=== PATIENT | female | born 1995 | race Caucasian/White ===

== ENCOUNTER 2017-01-06 19:16 | Emergency (ER) | payer OTHER ==
[~2017-01-06] VITALS: Ht 152.4 cm; Wt 99.8 kg
[~2017-01-06 19:16] MED LIST: ALBU8.5H3 IH; ALBU8.5H6 IH; ATOR40TA PO; CYCL10TA2 PO; DICY20TA30 PO; DOCU-27 PO; HYDR-971 PO; METR500T PO; NITR100C62 PO; ONDA4TAB7 PO; ONDA8TAB12 PO; POLY17PO5 PO; PRED20TA PO; PREN1TAB58 PO; TOPI100T39 PO
--- NOTE | 2017-01-06 19:20 | ED.ADGEN ---
Past History Past Medical History: Bipolar, Depression Past Surgical History: Appendectomy, Tonsillectomy Smoking: Cigarettes Alcohol Use: None Drug Use: None Adult General Chief Complaint Chief Complaint " .. I am .. 28 weeks.. and I got ear aches again.. I got treated once of otitis at [facility] last month.. but it has come back...I know I should stop smoking because that would help...." HPI HPI Patient is a 21 year old female who presents with above hx and complaints of bilateral ear pain. Patient has bilateral fluid in each ear. Some erythema in right ear. No history of travel. No history of contacts. Patient does smoke. Patient follows with primary care. No history of immunosuppression. Review of Systems Review of Systems Constitutional: Complaints of fever or chills [] Eyes: Denies change in visual acuity, redness, or eye pain [] HENT: Complaints of nasal congestion, ear pain and sore throat [] Respiratory: Denies cough or shortness of breath [] Cardiovascular: No additional information not addressed in HPI [] GI: Denies abdominal pain, nausea, vomiting, bloody stools or diarrhea [] : Denies dysuria or hematuria [] Musculoskeletal: Denies back pain or joint pain [] Integument: Denies rash or skin lesions [] Neurologic: Denies headache, focal weakness or sensory changes [] Endocrine: Denies polyuria or polydipsia [] Family History Family History Noncontributory Current Medications Current Medications See nursing for home meds Current Medications Medications (Trade) Dose Ordered Sig/Gama Start Time Stop Time Status Last Admin Dose Admin Azithromycin (Zithromax) 500 mg 1X ONCE 01/06/17 20:15 01/06/17 20:16 DC 01/06/17 20:11 500 MG Allergies Allergies Allergies Coded Allergies Type Severity Reaction Last Updated Verified Penicillins Allergy Intermediate 01/08/15 No Sulfa (Sulfonamide Antibiotics) Allergy Intermediate 01/08/15 No aripiprazole Allergy Intermediate 01/08/15 No duloxetine Allergy Intermediate 01/08/15 No fluoxetine Allergy Intermediate 01/08/15 No latex Allergy Intermediate 01/08/15 No fentanyl Allergy Mild HIVES 03/12/14 No Physical Exam Physical Exam Constitutional: Mild distress, non-toxic appearance. [] HENT: Normocephalic, atraumatic, bilateral external ears normal, oropharynx moist, mild posterior pharyngeal erythema no oral exudates, nose swollen turbinates and rhinorrhea. Bilateral TM fluid and right injection of TM. Eyes: PERRLA, EOMI, conjunctiva normal, no discharge. [] Glasses Neck: Normal range of motion, no tenderness, supple, no stridor. [] Cardiovascular:Heart rate regular rhythm, no murmur [] Lungs & Thorax: Bilateral breath sounds equal at apexes with scattered wheezes auscultation [] Abdomen: Bowel sounds normal, soft, no tenderness, no masses, no pulsatile masses. Gravid. movements. Skin: Warm, dry, no erythema, no rash. [] Back: No tenderness, no CVA tenderness. [] Extremities: No tenderness, no cyanosis, no clubbing, ROM intact, no edema. [] Neurologic: Alert and oriented X 3, normal motor function, normal sensory function, no focal deficits noted. [] DTRs are +2 Psychologic: Affect anxious, judgement normal, mood normal. [] Current Patient Data Vital Signs Vital Signs Date Time Temp Pulse Resp B/P Pulse Ox O2 Delivery O2 Flow Rate FiO2 01/06/17 20:17 97.9 01/06/17 19:30 114 20 98 Room Air EKG EKG [] Radiology/Procedures Radiology/Procedures [] Course & Med Decision Making Course & Med Decision Making Pertinent Labs and Imaging studies reviewed. (See chart for details). Stop smoking. Continue vitamins. Take his Zithromax 250 daily for 5 days. Benadryl 25 mg up to 4 times a day may be helpful for congestion and fluid retention behind TMs. Follow-up primary care. Return if any concerns. May take Tylenol for pain. [] Final Impression Final Impression 1. Otitis bilateral 2. Gravid approximately 28 weeks 3. Tobacco use [] Problems: Dragon Disclaimer Dragon Disclaimer This electronic medical record was generated, in whole or in part, using a voice recognition dictation system. XOCHITL STREETER MD Jan 06, 2017 19:20
[2017-01-06 19:30] VITALS: BP 115/66
[2017-01-06] MEDS ORDERED: AZIT250T PO (20:10)
[2017-01-06] MEDS ORDERED: AZITHROMYCIN 250 MG TABLET. PO ONE (20:15)
== END 2017-01-06 20:17 | disposition home or self-care (01) ==
LOC: ER 19:20
DX: O26.893 Other specified pregnancy related conditions, third trimester (principal); H66.93 Otitis media, unspecified, bilateral; O99.333 Smoking (tobacco) complicating pregnancy, third trimester; Z3A.28 28 weeks gestation of pregnancy; Z88.0 Allergy status to penicillin; Z88.2 Allergy status to sulfonamides; Z88.8 Allergy status to other drugs, medicaments and biological substances; Z91.040 Latex allergy status
CPT/HCPCS: 99283; J0456

== ENCOUNTER 2017-01-13 20:24 | Emergency (ER) | payer OTHER ==
[~2017-01-13] VITALS: Ht 152.4 cm; Wt 100.7 kg
[~2017-01-13 20:24] MED LIST changes: +AZIT250T PO
[2017-01-13] MEDS ORDERED: IV NORMAL SALINE 1,000ML 1,000 ML IV SCH (21:00)
[2017-01-13] MEDS ORDERED: ACETAMINOPHEN 500 MG TABLET PO ONE (21:08)
[2017-01-13 21:09] LABS: BASO % 0 % (0-3); EOS # 0.1 x10^3/uL (0.0-0.7); EOS % 1 % (0-3); HEMATOCRIT 30.8 % (36.0-47.0); HEMOGLOBIN 10.4 g/dL (12.0-15.5); LYMPH # 2.5 x10^3/uL (1.0-4.8); LYMPH % 18 % (24-48); MEAN CORPUSCULAR HEMOGLOBIN 28 pg (25-35); MEAN CORPUSCULAR HGB CONC 34 g/dL (31-37); MEAN CORPUSCULAR VOLUME 83 fL (79-100); MONO # 0.7 x10^3/uL (0.0-1.1); MONO % 5 % (0-9); NEUT # 10.9 x10^3uL (1.8-7.7); NEUT % 77 % (31-73); PLATELET COUNT 198 x10^3/uL (140-400); RED BLOOD COUNT 3.71 x10^6/uL (3.50-5.40); RED CELL DISTRIBUTION WIDTH 14.8 % (11.5-14.5); WHITE BLOOD COUNT 14.2 x10^3/uL (4.0-11.0)
[2017-01-13 21:20] LABS: ALBUMIN 2.9 g/dL (3.4-5.0); ALK PHOS 72 U/L (46-116); ALT (SGPT) 16 U/L (14-59); ANION GAP 9 (6-14); AST (SGOT) 11 U/L (15-37); BLOOD UREA NITROGEN 10 mg/dL (7-20); CALCIUM 8.9 mg/dL (8.5-10.1); CARBON DIOXIDE 25 mmol/L (21-32); CHLORIDE 106 mmol/L (98-107); CREATININE 0.7 mg/dL (0.6-1.0); GFR 105.6; GLUCOSE 144 mg/dL (70-99); POTASSIUM 3.5 mmol/L (3.5-5.1); SODIUM 140 mmol/L (136-145); TOTAL BILIRUBIN 0.1 mg/dL (0.2-1.0); TOTAL PROTEIN 6.7 g/dL (6.4-8.2)
[2017-01-13 21:21] LABS: DIRECT BILIRUBIN < 0.1 mg/dL (0.0-0.2)
[2017-01-13 22:46] LABS: AMPHETAMINE/METHAMPHETAMINE NEG (NEG); BARBITURATES NEG (NEG); BENZODIAZEPINES NEG (NEG); CANNABINOIDS NEG (NEG); COCAINE NEG (NEG); METHADONE NEG (NEG); OPIATES NEG (NEG); PHENCYCLIDINE NEG (NEG)
[2017-01-13 22:48] LABS: BILIRUBIN,URINE NEG (NEG); CLARITY,URINE HAZY; COLOR,URINE YELLOW; GLUCOSE,URINE NEG (NEG); UROBILINOGEN,URINE 0.2 mg/dL (0.2 mg/dL)
[2017-01-13 22:49] LABS: BACTERIA,URINE FEW /HPF (0-FEW); NITRITE,URINE NEG (NEG); SQUAMOUS EPITHELIAL CELL,UR MOD /LPF
--- NOTE | 2017-01-13 23:26 | PHYS DOC ---
General Chief Complaint: HEADACHE Stated Complaint: HEADACHE Time Seen by MD: 20:26 Source: patient, old records Exam Limitations: no limitations Problems: History of Present Illness Initial Comments Pt is 29wks gestation 21/F to ED c/o JAMIL. Pt states she's had a migraine for days, says it is global 10/10 throbbing. No aura/scotoma/n/v/focal neurodef, states OTC meds no help. Pt follows with health dept/ for OB, has not called her doctor about this tonight. Pt taking vitamins, continues to smoke cigarettes. Pt with 12 ED visits last year, 4 this year at [facility]. Pt reportedly also goes to and [facility]. Pt last here 6 days ago for ear pain. Timing/Duration: other (2 days, constant) Severity: severe Modifying Factors: improves with other Associated Symptoms: headaches Allergies: Coded Allergies: Penicillins (Unverified Allergy, Intermediate, 01/08/15) Sulfa (Sulfonamide Antibiotics) (Unverified Allergy, Intermediate, 01/08/15) aripiprazole (Unverified Allergy, Intermediate, 01/08/15) duloxetine (Unverified Allergy, Intermediate, 01/08/15) fluoxetine (Unverified Allergy, Intermediate, 01/08/15) latex (Unverified Allergy, Intermediate, 01/08/15) fentanyl (Unverified Allergy, Mild, HIVES, 03/12/14) Past Medical History Medical History: high cholesterol, other Surgical History: appendectomy, tonsillectomy Psychosocial History: bipolar, depression Family History Significant Family History: heart disease, hypertension, other Social History Smoker: cigarettes Alcohol: none Drugs: none Review of Systems Constitutional: denies chills, denies fever, malaise EENTM: denies eye pain, denies ear pain, denies nose pain, denies throat pain Respiratory: denies cough, denies shortness of breath Cardiovascular: denies chest pain, denies palpitations, denies syncope Gastrointestinal: denies diarrhea, denies nausea, denies vomiting Genitourinary: denies dysuria, denies frequency, denies hematuria Musculoskeletal: denies back pain, denies joint swelling, denies neck pain Psychiatric/Neurological: headachedenies numbness, denies paresthesia, denies weakness Hematologic/Lymphatic: denies blood clots, denies easy bleeding, denies easy bruising Physical Exam General Appearance: no apparent distress, obese Eyes: bilateral eye EOMI, bilateral eye PERRL, bilateral eye normal inspection Ear, Nose, Throat: hearing grossly normal, normal ENT inspection, normal pharynx Neck: non-tender, supple Respiratory: normal breath sounds, no respiratory distress Cardiovascular: normal peripheral pulses, regular rate, rhythm Gastrointestinal: normal bowel sounds, non tender, soft Back: no CVA tenderness, no vertebral tenderness Extremities: non-tender, normal inspection 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 I discussed findings and need to minimize harm. Tylenol only recommended. Pt insists on stronger pain meds, I advised her I would not give stronger meds without her OB direction. Pt calls RN to room, states she talked to her doctor and stronger meds will be approved if we contact them. RN called number given by pt, the RN stated that pt had been told nothing stronger than tylenol recommended or would be approved by her OB. Departure Time of Disposition: 23:23 Disposition: 01 HOME, SELF-CARE Diagnosis: Headache, tobaccoism, Patient Instructions: Medicines During , Smoking Cessation, Tips For Success Additional Instructions: Rest no strenuous activity. Aggressive hydration with gatorade, water. Continue vitamins. Stop smoking to alleviate headache and prevent harm to your baby. See handout for medications during . Follow up with your OB this week. Return to ED with new or changing symptoms. SAM JEAN DO Jan 13, 2017 23:26
[2017-01-13 23:31] VITALS: BP 139/80
== END 2017-01-13 23:31 | disposition home or self-care (01) ==
LOC: ER 20:24
DX: O26.893 Other specified pregnancy related conditions, third trimester (principal); R51 Headache; E78.00 Pure hypercholesterolemia, unspecified; I11.9 Hypertensive heart disease without heart failure; O99.333 Smoking (tobacco) complicating pregnancy, third trimester; Z3A.00 Weeks of gestation of pregnancy not specified; Z88.0 Allergy status to penicillin; Z88.2 Allergy status to sulfonamides; Z88.8 Allergy status to other drugs, medicaments and biological substances; Z91.040 Latex allergy status
CPT/HCPCS: 36415; 80048; 80076; 80305; 80320; 81001; 85027; 96360; 96361; G0480; G0481; 99285-25; J7030

== ENCOUNTER 2017-01-25 16:45 | Emergency (ER) | payer OTHER ==
[~2017-01-25] VITALS: Ht 152.4 cm; Wt 88.8 kg
--- NOTE | 2017-01-25 17:47 | PHYS DOC ---
General Chief Complaint: HIP PAIN Stated Complaint: FLANK PAIN Time Seen by MD: 17:43 Source: patient Exam Limitations: no limitations Problems: History of Present Illness Initial Comments Pt is 21/F to ED c/o right thigh discomfort/tightness. Pt 31 weeks gestation follows with OB and reportedly taking vitamins. She reports left posterior upper leg pain/tightness "feels like a manolo horse. " Pt says the discomfort is resultant from her job which requires standing, she tried to call off work today but employer reportedly refused excused absence without Dr note. No other injury, no leg weakness/numbness/tingling/ radiating symptoms no focal point tenderness. Pt walks with slight limp, OTC meds not helping, pt still smokes cigarettes. No JAMIL/cp/sob/focal neurodef pt is . FHT 143 bpm, pt denies vaginal/flank symptoms. Onset: this morning Severity: moderate Pain/Injury Location: left thigh Method of Injury: unknown Modifying Factors: worse with jarring, worse with movement, improves with rest Allergies: Coded Allergies: Penicillins (Unverified Allergy, Intermediate, 01/08/15) Sulfa (Sulfonamide Antibiotics) (Unverified Allergy, Intermediate, 01/08/15) aripiprazole (Unverified Allergy, Intermediate, 01/08/15) duloxetine (Unverified Allergy, Intermediate, 01/08/15) fluoxetine (Unverified Allergy, Intermediate, 01/08/15) latex (Unverified Allergy, Intermediate, 01/08/15) fentanyl (Unverified Allergy, Mild, HIVES, 03/12/14) Past Medical History Medical History: other (asthma, bipolar, depression) Surgical History: appendectomy, tonsillectomy LMP (Females 10-50): Family History Significant Family History: heart disease, hypertension, other Social History Smoker: cigarettes Alcohol: none Drugs: none Review of Systems Constitutional: denies chills, denies fever, denies malaise Respiratory: denies cough, denies shortness of breath Cardiovascular: denies chest pain, denies palpitations Gastrointestinal: denies abdominal pain, denies nausea, denies vomiting Genitourinary: denies dysuria, denies frequency, denies hematuria Musculoskeletal: see HPI Skin: denies change in color, denies lumps, denies rash Psychiatric/Neurological: denies headache, denies numbness, denies paresthesia , denies weakness Physical Exam General Appearance: no apparent distress HEENT: normal ENT inspection Neck: non-tender, supple Cardiovascular/Respiratory: normal peripheral pulses, no respiratory distress Back: no CVA tenderness, no vertebral tenderness Hips: bilateral hip non-tender, bilateral hip normal inspection, bilateral hip normal range of motion, bilateral hip no evidence of injury Legs: left leg non-tender, left leg normal inspection, bilateral leg normal range of motion, bilateral leg no evidence of injury, right leg other (right IT band/hamstring TTP, hamstring hypertonicity (mild) noted no erythema/sub q mass/ swelling no skin changes or other traumatic finding) Neurologic/Tendon: normal sensation, normal motor functions, normal tendon functions, responds to pain, no evidence tendon injury Psychiatric: alert, oriented x 3 Skin: normal color, warm/dry Orders, Labs, Meds thigh circumferences measured b/l at site of maximal tenderness left thigh, no asymmetry see nn for measurements. I discussed DVT and lack of need for US at this time. Pt is fine with that, she persistently requests work excuse which was given. Advised to d/c smoking for baby's health. Departure Time of Disposition: 17:45 Disposition: 01 HOME, SELF-CARE Diagnosis: muscle strain, incidental Condition: GOOD Patient Instructions: Hamstring Strain with Rehab-SportsMed, Medicines During Additional Instructions: Activity as tolerated. Continue current medications. Aggressive hydration with gatorade, water. Eat one banana twice daily until doctor follow up. Follow up with your doctor next week. Return to ED with new or changing symptoms. SAM JEAN DO Jan 25, 2017 17:47
[2017-01-25 18:03] VITALS: BP 127/60
== END 2017-01-25 17:50 | disposition home or self-care (01) ==
LOC: ER 16:45
DX: O26.893 Other specified pregnancy related conditions, third trimester (principal); S76.911A Strain of unspecified muscles, fascia and tendons at thigh level, right thigh, initial encounter; O99.333 Smoking (tobacco) complicating pregnancy, third trimester; J45.909 Unspecified asthma, uncomplicated; F17.210 Nicotine dependence, cigarettes, uncomplicated; Z3A.31 31 weeks gestation of pregnancy; Z88.0 Allergy status to penicillin; Z88.2 Allergy status to sulfonamides; Z91.040 Latex allergy status; Z88.8 Allergy status to other drugs, medicaments and biological substances; X58.XXXA Exposure to other specified factors, initial encounter; Y93.89 Activity, other specified; Y99.8 Other external cause status; Y92.89 Other specified places as the place of occurrence of the external cause
CPT/HCPCS: 99281

== ENCOUNTER 2017-02-06 23:42 | Emergency (ER) | payer OTHER ==
[~2017-02-06] VITALS: Ht 152.4 cm; Wt 98.9 kg
[2017-02-06 23:42] VITALS: BP 129/70
--- NOTE | 2017-02-07 00:03 | PHYS DOC ---
General Chief Complaint: TEST Stated Complaint: NO MOVEMENT FROM BABY, 32 WEEKS Time Seen by MD: 23:45 Source: patient, old records Exam Limitations: no limitations Problems: History of Present Illness Initial Comments Pt is 32 weeks gestation 21/F well known to ED for check. Pt states she hasn't felt baby move today, she called [facility] where she plans to deliver and they advised pt to come to their facility to check baby status. Pt denies abdominal/back pain, no vaginal bleeding/discharge. "I didn't want to drive that far so we just came here." Pt denies complaints other than her concern for baby's welfare. Timing/Duration: 4-6 hours Severity: severe Modifying Factors: improves with other Associated Symptoms: other Allergies: Coded Allergies: Penicillins (Unverified Allergy, Intermediate, 01/08/15) Sulfa (Sulfonamide Antibiotics) (Unverified Allergy, Intermediate, 01/08/15) aripiprazole (Unverified Allergy, Intermediate, 01/08/15) duloxetine (Unverified Allergy, Intermediate, 01/08/15) fluoxetine (Unverified Allergy, Intermediate, 01/08/15) latex (Unverified Allergy, Intermediate, 01/08/15) fentanyl (Unverified Allergy, Mild, HIVES, 03/12/14) Past Medical History Medical History: high cholesterol, other Surgical History: appendectomy, tonsillectomy Family History Significant Family History: heart disease, hypertension, other Review of Systems Constitutional: denies chills, denies fever Respiratory: denies cough, denies shortness of breath Cardiovascular: denies chest pain, denies palpitations Gastrointestinal: denies abdominal pain, denies constipation Genitourinary: denies discharge, denies hematuria Musculoskeletal: denies joint swelling, denies neck pain Psychiatric/Neurological: denies headache, denies seizure Physical Exam General Appearance: WD/WN, no apparent distress Ear, Nose, Throat: normal ENT inspection Respiratory: normal breath sounds, no respiratory distress Cardiovascular: normal peripheral pulses, regular rate, rhythm Gastrointestinal: normal bowel sounds, soft (gravid c/w dates NTTP) Back: no CVA tenderness, no vertebral tenderness Extremities: non-tender, no pedal edema 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 Reassurance offered, pt states she is ready for d/c. Pt has f/u OB appt at next Saturday, states she will be induced one week prior to due date. Departure Time of Disposition: 00:01 Disposition: 01 HOME, SELF-CARE Diagnosis: Screening Exam, Condition: GOOD Patient Instructions: - Nain Sandoval Contractions, - Third Trimester, [id number] Additional Instructions: Continue current meds and precautions. Follow up with your [facility] at Saturday as scheduled. Return to ED with new or changing symptoms. SAM JEAN DO February 07, 2017 00:03
== END 2017-02-07 00:06 | disposition home or self-care (01) ==
LOC: ER 23:42
DX: Z34.93 Encounter for supervision of normal pregnancy, unspecified, third trimester (principal); E78.00 Pure hypercholesterolemia, unspecified; Z3A.32 32 weeks gestation of pregnancy; Z88.0 Allergy status to penicillin; Z88.2 Allergy status to sulfonamides; Z88.8 Allergy status to other drugs, medicaments and biological substances; Z91.040 Latex allergy status
CPT/HCPCS: 82947; 99283

== ENCOUNTER 2017-02-22 14:03 | Emergency (ER) | payer OTHER ==
[~2017-02-22] VITALS: Ht 152.4 cm; Wt 98.9 kg
[~2017-02-22 14:03] MED LIST changes: -ALBU8.5H3 IH; +ALBU8.5H8 IH; +CYCL-331 PO; -CYCL10TA2 PO; +DOCU-109 PO; -DOCU-27 PO; -TOPI100T39 PO; +TOPI100T42 PO
[2017-02-22 14:17] VITALS: BP 145/76
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
== END 2017-02-22 14:41 | disposition short-term general hospital (02) ==
LOC: ER 14:10
DX: O62.8 Other abnormalities of forces of labor (principal); O60.03 Preterm labor without delivery, third trimester; O99.333 Smoking (tobacco) complicating pregnancy, third trimester; E11.9 Type 2 diabetes mellitus without complications; Z3A.36 36 weeks gestation of pregnancy; Z88.0 Allergy status to penicillin; Z88.2 Allergy status to sulfonamides; Z91.040 Latex allergy status; Z88.8 Allergy status to other drugs, medicaments and biological substances
CPT/HCPCS: 99285

== ENCOUNTER 2017-03-19 22:45 | Emergency (ER) | payer OTHER ==
--- NOTE | 2017-03-19 23:07 | PHYS DOC ---
General Chief Complaint: POST-OP PROBLEM Stated Complaint: POST OP COMPLICATION Time Seen by MD: 22:53 Source: patient Exam Limitations: no limitations Problems: History of Present Illness Initial Comments Patient is a 22-year-old female 5 days section with a healthy baby female at home. Patient states that she's been recovering well from her procedure but earlier tonight her incision became uncomfortable and felt like it was burning. The patient assumed that it had opened up and was bleeding and without looking at it she came in for evaluation. In the ED the wound appears to be healing well there is no bleeding it has not dehisced. The patient has no other complaints. Timing/Duration: other Severity: mild Modifying Factors: worse with movement Associated Symptoms: other Allergies: Coded Allergies: Penicillins (Unverified Allergy, Intermediate, 01/08/15) Sulfa (Sulfonamide Antibiotics) (Unverified Allergy, Intermediate, 01/08/15) aripiprazole (Unverified Allergy, Intermediate, 01/08/15) duloxetine (Unverified Allergy, Intermediate, 01/08/15) fluoxetine (Unverified Allergy, Intermediate, 01/08/15) latex (Unverified Allergy, Intermediate, 01/08/15) fentanyl (Unverified Allergy, Mild, HIVES, 03/12/14) Past Medical History Medical History: high cholesterol, other (anxiety, depression) Surgical History: appendectomy, tonsillectomy ( section) Psychosocial History: anxiety, depression Family History Significant Family History: heart disease, hypertension, other Social History Smoker: cigarettes Alcohol: none Drugs: none Review of Systems Constitutional: denies chills, denies diaphoresis, denies fever, denies malaise Respiratory: denies cough, denies shortness of breath Cardiovascular: denies chest pain, denies palpitations Gastrointestinal: see HPI, denies constipation, denies diarrhea, denies nausea , denies vomiting Genitourinary: denies dysuria, denies frequency, denies hematuria Musculoskeletal: see HPI, denies back pain, denies neck pain Skin: see HPI Psychiatric/Neurological: denies headache, denies numbness, denies paresthesia Physical Exam General Appearance: no apparent distress, obese Ear, Nose, Throat: hearing grossly normal, normal ENT inspection Neck: non-tender, supple Respiratory: normal breath sounds, no respiratory distress Cardiovascular: normal peripheral pulses, regular rate, rhythm Gastrointestinal: soft (wound is covered with sterile dressing when removed the incision is healing well there is no erythema or discharge or bleeding. 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 Departure Time of Disposition: 23:06 Disposition: 01 HOME, SELF-CARE Diagnosis: wound check Condition: GOOD Patient Instructions: Delivery, Care After Additional Instructions: Continue postop medications and instructions given to you by your chargeback specialist. Follow-up with your chargeback specialist as scheduled. Return to the ED with new or changing symptoms. SAM JEAN DO Mar 19, 2017 23:07
[2017-03-20 00:15] VITALS: BP 121/71
== END 2017-03-19 23:11 | disposition home or self-care (01) ==
LOC: ER 22:45
DX: Z00.00 Encounter for general adult medical examination without abnormal findings (principal); O90.89 Other complications of the puerperium, not elsewhere classified; E78.00 Pure hypercholesterolemia, unspecified; F41.9 Anxiety disorder, unspecified; I11.9 Hypertensive heart disease without heart failure; F17.210 Nicotine dependence, cigarettes, uncomplicated; Z98.890 Other specified postprocedural states; Z88.0 Allergy status to penicillin; Z88.2 Allergy status to sulfonamides; Z88.8 Allergy status to other drugs, medicaments and biological substances; Z91.040 Latex allergy status
CPT/HCPCS: 99281

== ENCOUNTER 2017-03-31 20:51 | Emergency (ER) | payer OTHER ==
[~2017-03-31] VITALS: Ht 152.4 cm; Wt 99.1 kg
[2017-03-31 21:15] VITALS: BP 108/60
[2017-03-31] MEDS ORDERED: HYDR-2758 PO (21:29)
[2017-03-31] MEDS ORDERED: DIAZ5TAB PO (21:29)
[2017-03-31] MEDS ORDERED: NAPR500T PO (21:29)
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
[2017-03-31] MEDS ORDERED: HYDROcodone/APAP 5/325MG 1 TAB TABLET PO ONE (22:00)
== END 2017-03-31 21:58 | disposition home or self-care (01) ==
LOC: ER 20:51
DX: Z48.815 Encounter for surgical aftercare following surgery on the digestive system (principal); O9A.23 Injury, poisoning and certain other consequences of external causes complicating the puerperium; S16.1XXA Strain of muscle, fascia and tendon at neck level, initial encounter; E78.00 Pure hypercholesterolemia, unspecified; F17.210 Nicotine dependence, cigarettes, uncomplicated; Z88.0 Allergy status to penicillin; Z88.2 Allergy status to sulfonamides; Z88.8 Allergy status to other drugs, medicaments and biological substances; Z88.4 Allergy status to anesthetic agent; Z91.040 Latex allergy status; V49.9XXA Car occupant (driver) (passenger) injured in unspecified traffic accident, initial encounter; Y93.89 Activity, other specified; Y99.8 Other external cause status; Y92.410 Unspecified street and highway as the place of occurrence of the external cause
CPT/HCPCS: 99283

== ENCOUNTER 2017-05-22 01:17 | Emergency (ER) | payer OTHER ==
[~2017-05-22 01:17] MED LIST changes: +DIAZ5TAB PO; +HYDR-2758 PO; +NAPR500T PO
[2017-05-22] MEDS ORDERED: LIDO:MAALOX 1:1 20 ML SINGLE DOSE PO ONE (02:00)
[2017-05-22 02:45] VITALS: BP 143/79
--- NOTE | 2017-05-22 03:17 | ED.ADGEN ---
Past History Past Medical History: Anxiety, Diabetes Past Surgical History: Smoking: Cigarettes Alcohol Use: None Drug Use: None Adult General HPI HPI Patient is a 22-year-old woman, history of anxiety, bipolar disorder, gestational diabetes, who presents to the emergency department with multiple complaints. Patient states that for the past several weeks she is sometimes experiences episodes of "disorientation", she states "I know who I am and where I am, I just don't feel right". No headache or vision changes. She states that she is feeling this way today, and is concerned may be due to her blood sugars, she states she did have gestational diabetes, and has not yet followed up for reevaluation after delivering her daughter, and is concerned the symptoms may be due to elevated blood glucose. She states that she was previously taking Klonopin, but ran out about a month ago, and has been unable to refill her prescription as her primary care provider has moved. She states that she has been working with her nurse outreach case manager to get in to the guidance center for assistance. She denies any suicidal or homicidal ideation, any self injures behaviors or thoughts, states that she just does feel anxious, and is worried about a number of things, no new changes or particular stressors that brought her to the ED tonight. She states she has been sexually active, has received the Depo-Provera injection. She states that "my father is a cardiac patient", She states that she also is experiencing a "burning" sensation in her chest, located in the mid anterior region without radiation, states it began earlier today, no chest pain or pressure, denies any shortness of breath, any nausea or vomiting, any weakness, numbness, tingling, injuries, travel, swelling of the extremities, history of DVT or PE. She is not taking any medication for these symptoms prior to coming to the ED. Oxygen saturation is 99-100% on room air, respiratory rate is 20 and unlabored, heart rate is 94 bpm, blood pressure is 160/90, patient does appear anxious. Review of Systems Review of Systems Constitutional: Denies fever or chills [] Eyes: Denies change in visual acuity, redness, or eye pain [] HENT: Denies nasal congestion or sore throat [] Respiratory: Denies cough or shortness of breath, complaining of burning sensation in chest. Cardiovascular: No additional information not addressed in HPI [] GI: Denies abdominal pain, nausea, vomiting, bloody stools or diarrhea [] : Denies dysuria or hematuria [] Musculoskeletal: Denies back pain or joint pain [] Integument: Denies rash or skin lesions [] Neurologic: Denies headache, focal weakness or sensory changes [] Endocrine: Denies polyuria or polydipsia [] Anxiety. Current Medications Current Medications Current Medications Medications (Trade) Dose Ordered Sig/Gama Start Time Stop Time Status Last Admin Dose Admin Multi-Ingredient Mouthwash/Gargle (Gi Cocktail) 20 ml 1X ONCE 05/22/17 02:00 05/22/17 02:04 DC 05/22/17 01:57 20 ML Allergies Allergies Allergies Coded Allergies Type Severity Reaction Last Updated Verified Penicillins Allergy Intermediate 01/08/15 No Sulfa (Sulfonamide Antibiotics) Allergy Intermediate 01/08/15 No aripiprazole Allergy Intermediate 01/08/15 No duloxetine Allergy Intermediate 01/08/15 No fluoxetine Allergy Intermediate 01/08/15 No latex Allergy Intermediate 01/08/15 No fentanyl Allergy Mild HIVES 03/12/14 No Physical Exam Physical Exam Constitutional: Well developed, well nourished, no acute distress, non-toxic appearance. [] HENT: Normocephalic, atraumatic, bilateral external ears normal, oropharynx moist, no oral exudates, nose normal. [] Eyes: PERRLA, EOMI, conjunctiva normal, no discharge. [] Neck: Normal range of motion, no tenderness, supple, no stridor. [] Cardiovascular:Heart rate regular rhythm, no murmur , S1, S2, rubs or gallops. [ ] Lungs & Thorax: Bilateral breath sounds clear to auscultation , no wheezing, rhonchi or rales. No chest wall crepitus, patient with mild tenderness across the left anterior chest. No lesions or abnormalities identified. [] Abdomen: Bowel sounds normal, soft, no tenderness, no rebound, rigidity, no guarding, no masses, no pulsatile masses. [] Skin: Warm, dry, no erythema, no rash. [] Back: No tenderness, no CVA tenderness. [] Extremities: No tenderness, no cyanosis, no clubbing, ROM intact, no edema. Negative Ivis's sign. [] Neurologic: Alert and oriented X 3, normal motor function, normal sensory function, no focal deficits noted. [] Psychologic: Affect normal, judgement normal, mood normal. [] Current Patient Data Vital Signs Vital Signs Date Time Temp Pulse Resp B/P (MAP) Pulse Ox O2 Delivery O2 Flow Rate FiO2 05/22/17 02:45 94 20 143/79 (100) 97 Room Air 05/22/17 01:30 98.4 Lab Results Laboratory Tests Test 05/22/17 02:19 POC Urine HCG, Qualitative hcg negative (Negative) EKG EKG EC: Sinus rhythm, heart rate 94 beats/minute, upright axis, QTC of 460, FL 156, QRS of 92, no ST elevations or depressions, patient with flattening noted in the anterior leads, no other abnormalities identified. No prior for comparison. As interpreted by me. Radiology/Procedures Radiology/Procedures Not indicated. [] Course & Med Decision Making Course & Med Decision Making Pertinent Labs and Imaging studies reviewed. (See chart for details) Patient's primary concern is the feelings of "weirdness", that she's been experiencing for the past several weeks. She describes it is moving "up and down across my head", but denies any focal neurologic abnormalities. She is concerned this is due to her blood sugars, we did check an Accu-Chek in the ED, and blood sugar was 135. She without any swelling of the extremities, any shortness of breath, oxygen saturation is 97-100% with unlabored respirations, heart rate does increase up into the low 100s during our discussion but drops back down to 80s, repeat blood pressure is 143/78. Patient states she is relieved with these findings, patient's father is now bedside, she states she is ready to go home. Discussed with patient importance of following up with her nurse outreach case manager tomorrow to facilitate an appointment at the [facility] center for additional evaluation and medical management for her long-term anxiety and the importance of following up with her SOFTWARE DEPLOYMENT ENGINEER and primary care providers for continued medical management. We also discussed concerning symptoms that would prompt return to the ED for additional evaluation. Patient voiced understanding and agreement with plan as stated, discharged home in stable condition with plan as above. Final Impression Final Impression [] Problems: Dragon Disclaimer Dragon Disclaimer This electronic medical record was generated, in whole or in part, using a voice recognition dictation system. Departure: Impression: Primary Impression: Anxiety Disposition: HOME, SELF-CARE Condition: IMPROVED RODO LANE DO May 22, 2017 03:17
--- NOTE | 2017-05-25 12:52 | EKG ---
[address] [address] Test Date: 2017-05-22 Test Time: 01:54:45 Pat Name: ROHAN JACKSON Department: Room: Gender: F Emergency Medical Technician/Driver: : 1995 Requested By: RODO L[address] Order Number: [id number] Reading MD: Measurements Intervals [place] Rate: 94 P: 0 DC: 156 QRS: 46 QRSD: 92 T: 21 QT: 368 QTc: 460 Interpretive Statements SINUS RHYTHM QRS(T) CONTOUR ABNORMALITY CANNOT RULE OUT ANTEROSEPTAL MYOCARDIAL DAMAGE RI6.01 Unconfirmed report No previous ECG available for comparison
== END 2017-05-22 02:45 | disposition home or self-care (01) ==
LOC: ER 01:17
DX: F41.9 Anxiety disorder, unspecified (principal); F31.9 Bipolar disorder, unspecified; E11.9 Type 2 diabetes mellitus without complications; F17.210 Nicotine dependence, cigarettes, uncomplicated; Z88.0 Allergy status to penicillin; Z88.2 Allergy status to sulfonamides; Z88.8 Allergy status to other drugs, medicaments and biological substances; Z88.6 Allergy status to analgesic agent; Z91.040 Latex allergy status
CPT/HCPCS: 81025; 82947; 93005; 99283-25; 99284-25

== ENCOUNTER 2017-07-02 13:52 | Emergency (ER) | payer OTHER ==
[~2017-07-02] VITALS: Ht 152.4 cm; Wt 96.4 kg
[2017-07-02] MEDS ORDERED: LIDO:MAALOX 1:1 20 ML SINGLE DOSE PO ONE (15:10)
[2017-07-02] MEDS ORDERED: methylPREDNISolone SOD SUCC PF 125 MG/2 ML VIAL. IV ONE (15:10)
[2017-07-02] MEDS ORDERED: IPRATRPIUM/ALBUTEROL 0.5/2.5MG 3 ML NEBU. NEB ONE (15:10)
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
[2017-07-02] MEDS ORDERED: methylPREDNISolone SOD SUCC PF 125 MG/2 ML VIAL. IM ONE (15:30)
[2017-07-02 15:45] LABS: MONONUCLEOSIS PATIENT POSITIVE (NEGATIVE)
[2017-07-02] MEDS ORDERED: ALBU8.5H8 INH (15:56)
[2017-07-02] MEDS ORDERED: PRED20TA PO (15:56)
[2017-07-02 16:00] VITALS: BP 169/69
== END 2017-07-02 16:00 | disposition home or self-care (01) ==
LOC: ER 13:54
DX: B27.90 Infectious mononucleosis, unspecified without complication (principal); H92.03 Otalgia, bilateral; J45.909 Unspecified asthma, uncomplicated; E11.9 Type 2 diabetes mellitus without complications; F17.210 Nicotine dependence, cigarettes, uncomplicated; F41.9 Anxiety disorder, unspecified; F31.9 Bipolar disorder, unspecified; Z88.0 Allergy status to penicillin; Z88.2 Allergy status to sulfonamides; Z88.8 Allergy status to other drugs, medicaments and biological substances; Z88.4 Allergy status to anesthetic agent; Z91.040 Latex allergy status
CPT/HCPCS: 86308; 87070; 87880; 94640; 96372; 99284; J2930; J7620

== ENCOUNTER 2017-10-19 15:41 | Emergency (ER) | payer OTHER ==
[~2017-10-19] VITALS: Ht 152.4 cm; Wt 96.4 kg
[~2017-10-19 15:41] MED LIST changes: +ALBU8.5H8 INH; +NAPR-683 PO; -NAPR500T PO
[2017-10-19 15:52] VITALS: BP 131/77
[2017-10-19] MEDS ORDERED: HYDROcodone/APAP 10/325 1 TAB TABLET PO ONE (16:15)
--- NOTE | 2017-10-19 16:33 | PHYS DOC ---
Past History Past Medical History: Anxiety, Asthma, Bipolar, Depression, Diabetes Past Surgical History: Appendectomy, , Tonsillectomy Smoking: Cigarettes Alcohol Use: None Drug Use: None Adult General Chief Complaint Chief Complaint: UPPER EXTREMITY INJURY [facility] HPI Patient is a 22 year old F who presents with elbow pain after a slip and fall on the ice just prior to arrival. Her pain is in the left elbow. Her pain is constant dull worse with movement and improved with rest. She also describes tingling in her fifth finger. She denies any other associated symptoms. She denies other exacerbating or alleviating factors. Review of Systems Review of Systems Constitutional: Denies fever or chills [] Eyes: Denies change in visual acuity, redness, or eye pain [] HENT: Denies nasal congestion or sore throat [] Respiratory: Denies cough or shortness of breath [] Cardiovascular: No additional information not addressed in HPI [] GI: Denies abdominal pain, nausea, vomiting, bloody stools or diarrhea [] : Denies dysuria or hematuria [] Musculoskeletal: Denies back pain or joint pain [] Integument: Denies rash or skin lesions [] Neurologic: Denies headache, focal weakness or sensory changes [] Endocrine: Denies polyuria or polydipsia [] All other systems were reviewed and found to be within normal limits, except as documented in this note. Family History Family History No pertinent medical history was reported Current Medications Current Medications Current Medications Medications (Trade) Dose Ordered Sig/Gama Start Time Stop Time Status Last Admin Dose Admin Acetaminophen/ Hydrocodone Bitart (Lortab 10/325) 1 tab 1X ONCE 10/19/17 16:15 10/19/17 16:16 DC 10/19/17 16:18 1 TAB Allergies Allergies Allergies Coded Allergies Type Severity Reaction Last Updated Verified Penicillins Allergy Intermediate 01/08/15 No Sulfa (Sulfonamide Antibiotics) Allergy Intermediate 01/08/15 No aripiprazole Allergy Intermediate 01/08/15 No duloxetine Allergy Intermediate 01/08/15 No fluoxetine Allergy Intermediate 01/08/15 No latex Allergy Intermediate 01/08/15 No fentanyl Allergy Mild HIVES 03/12/14 No Physical Exam Physical Exam Constitutional: Well developed, well nourished, no acute distress, non-toxic appearance. [] HENT: Normocephalic, atraumatic Eyes: EOMI, conjunctiva normal, no discharge. [] Neck: Normal range of motion, no tenderness, supple, no stridor. [] Cardiovascular:Heart rate regular rhythm, Lungs & Thorax: Bilateral breath sounds clear to auscultation [] Abdomen: Bowel sounds normal, soft, no tenderness, no masses, no pulsatile masses. [] Skin: Warm, dry, no erythema, no rash. [] Extremities: no cyanosis, no clubbing, ROM intact, no edema. [] Small abrasion noted over the left posterior elbow with moderate tenderness to palpation over the area. No tenderness over the medial and lateral epicondyle. Neurologic: Alert and oriented X 3, normal motor function, normal sensory function, no focal deficits noted. [] Psychologic: Affect normal, judgement normal, mood normal. [] Current Patient Data Vital Signs Vital Signs Date Time Temp Pulse Resp B/P (MAP) Pulse Ox O2 Delivery O2 Flow Rate FiO2 10/19/17 16:18 20 10/19/17 15:52 97.9 113 97 Room Air EKG EKG [] Radiology/Procedures Radiology/Procedures Elbow x-ray Impressions: No acute disease Course & Med Decision Making Course & Med Decision Making Pertinent Labs and Imaging studies reviewed. (See chart for details) [] Dragon Disclaimer Dragon Disclaimer This electronic medical record was generated, in whole or in part, using a voice recognition dictation system. Departure Departure: Impression: Primary Impression: Contusion of left elbow, initial encounter Disposition: HOME, SELF-CARE Condition: STABLE Referrals: EFFIE SMITH MD (PCP) Patient Instructions: Elbow Contusion Additional Instructions: Pretty was seen in the emergency department for elbow pain. No emergency medical condition was found on history or physical exam. She did have a normal x-ray. Her symptoms are most consistent with an elbow bruise. She is advised to use lidocaine patches for pain management and continue activity as tolerated. She is advised follow-up with her primary care doctor as needed for further management. IZAIAH DE JESUS MD Oct 19, 2017 16:33
--- NOTE | 2017-10-20 07:48 | RAD ---
3 view left elbow radiograph 10/19/2017 Clinical indication: Left elbow pain status post trauma. Comparison: None. Findings: No acute fracture or traumatic malalignment. The joint spaces are maintained. No significant elbow joint effusion. Impression: No acute osseous abnormality.
== END 2017-10-19 16:46 | disposition home or self-care (01) ==
LOC: ER 15:41
DX: S50.02XA Contusion of left elbow, initial encounter (principal); J45.909 Unspecified asthma, uncomplicated; E11.9 Type 2 diabetes mellitus without complications; F17.210 Nicotine dependence, cigarettes, uncomplicated; Z88.0 Allergy status to penicillin; Z88.2 Allergy status to sulfonamides; Z88.8 Allergy status to other drugs, medicaments and biological substances; Z88.4 Allergy status to anesthetic agent; Z91.040 Latex allergy status; W00.0XXA Fall on same level due to ice and snow, initial encounter; Y93.89 Activity, other specified; Y99.8 Other external cause status; Y92.89 Other specified places as the place of occurrence of the external cause
CPT/HCPCS: 73080; 99284

== ENCOUNTER 2017-11-02 16:29 | Emergency (ER) | payer OTHER ==
[2017-11-02] MEDS ORDERED: ONDA4TAB10 SL (17:45)
[2017-11-02] MEDS ORDERED: BUTA1CAP31 PO (17:45)
--- NOTE | 2017-11-02 17:45 | PHYS DOC ---
Past History Past Medical History: Anxiety, Asthma, Bipolar, Depression, Diabetes Past Surgical History: Appendectomy, , Tonsillectomy Smoking: Cigarettes Alcohol Use: None Drug Use: None Adult General Chief Complaint Chief Complaint: HEADACHE HPI HPI 22-year-old female patient with history of migraine headache and bipolar disorder complaining of throbbing frontal headache since normal with radiation to back of her head without nausea and vomiting. Patient complaining of photophobia and denies fever and chills and focal neurodeficit. Patient states her pain is like her previous episodes of migraine headache that didn't get better with [id number]-[id number] pain medication. Patient rated her pain 9/10. Review of Systems Review of Systems Constitutional: Denies fever or chills [] Eyes: Denies change in visual acuity, redness, or eye pain [, reports photophobia] HENT: Denies nasal congestion or sore throat [] Respiratory: Denies cough or shortness of breath [] Cardiovascular: No additional information not addressed in HPI [] GI: Denies abdominal pain, nausea, vomiting, bloody stools or diarrhea [] : Denies dysuria or hematuria [] Musculoskeletal: Denies back pain or joint pain [] Integument: Denies rash or skin lesions [] Neurologic: Denies focal weakness or sensory changes , reports headache[] Endocrine: Denies polyuria or polydipsia [] All other systems were reviewed and found to be within normal limits, except as documented in this note. Current Medications Current Medications Current Medications Medications (Trade) Dose Ordered Sig/[facility] Start Time Stop Time Status Last Admin Dose Admin Ketorolac Tromethamine (Toradol) 60 mg 1X ONCE 11/02/17 17:30 11/02/17 17:31 UNV Allergies Allergies Allergies Coded Allergies Type Severity Reaction Last Updated Verified Penicillins Allergy Intermediate 01/08/15 No Sulfa (Sulfonamide Antibiotics) Allergy Intermediate 01/08/15 No aripiprazole Allergy Intermediate 01/08/15 No duloxetine Allergy Intermediate 01/08/15 No fluoxetine Allergy Intermediate 01/08/15 No latex Allergy Intermediate 01/08/15 No fentanyl Allergy Mild HIVES 03/12/14 No Physical Exam Physical Exam Constitutional: Well nourished, mild distress, non-toxic appearance, morbidly obese. [] HENT: Normocephalic, atraumatic, bilateral external ears normal, oropharynx moist, no oral exudates, nose normal. [] Eyes: PERRLA, EOMI, conjunctiva normal, no discharge. [] Neck: Normal range of motion, no tenderness, supple, no stridor. [] Cardiovascular:Heart rate regular rhythm, no murmur [] Lungs & Thorax: Bilateral breath sounds clear to auscultation [] Abdomen: Bowel sounds normal, soft, no tenderness, no masses, no pulsatile masses. [] Skin: Warm, dry, no erythema, no rash. [] Back: No tenderness, no CVA tenderness. [] Extremities: No tenderness, no cyanosis, no clubbing, ROM intact, no edema. [] Neurologic: Alert and oriented X 3, normal motor function, normal sensory function, no focal deficits noted. [] Psychologic: Affect normal, judgement normal, mood normal. [] EKG EKG [] Radiology/Procedures Radiology/Procedures [] Course & Med Decision Making Course & Med Decision Making Evaluation of patient in ER showed 23-year-old female patient with history of present with complaining of headache for several hours that didn't get better with bysv-wpo-uaalwme pain medication. Patient had unremarkable physical exam except for mild distress of pain. Patient did not have meningeal sign. Patient treated with Toradol and felt better. Plan discharge patient home with diagnosis of migraine headache.[] Dragon Disclaimer Dragon Disclaimer This electronic medical record was generated, in whole or in part, using a voice recognition dictation system. Departure Departure: Impression: Primary Impression: Migraine headache Additional Impressions: Tobacco abuse Tobacco abuse counseling Disposition: HOME, SELF-CARE (At 1800) Condition: IMPROVED Referrals: EFFIE SMITH MD (PCP) Patient Instructions: Migraine Headache Additional Instructions: Follow-up with your primary care physician in 3-5 days Return to ER if not getting better Quit smoking Scripts Butalbital/Aspirin/Caffeine (FIORINAL 50-325-40 MG CAPSULE) 1 Each Capsule 1 EACH PO BID Y for HEADACHE, #14 CAP Prov: RYAN BLANK MD 11/02/17 Ondansetron (ZOFRAN ODT) 4 Mg Tab.rapdis 1 TAB SL Q8HRS, #15 TAB Prov: RYAN BLANK MD 11/02/17 Problem Qualifiers RYAN BLANK MD Nov 02, 2017 17:45
[2017-11-02] MEDS ORDERED: KETOROLAC 60 MG/2 ML VIAL. IM ONE (18:00)
[2017-11-02 18:15] VITALS: BP 133/77
== END 2017-11-02 18:15 | disposition home or self-care (01) ==
LOC: ER 16:29
DX: G43.909 Migraine, unspecified, not intractable, without status migrainosus (principal); F17.210 Nicotine dependence, cigarettes, uncomplicated; E11.9 Type 2 diabetes mellitus without complications; J45.909 Unspecified asthma, uncomplicated; Z71.6 Tobacco abuse counseling; Z88.0 Allergy status to penicillin; Z88.2 Allergy status to sulfonamides; Z88.8 Allergy status to other drugs, medicaments and biological substances; Z91.040 Latex allergy status
CPT/HCPCS: 96372; 99283; J1885

== ENCOUNTER 2017-11-22 07:08 | Emergency (ER) | payer OTHER ==
[~2017-11-22] VITALS: Ht 152.4 cm; Wt 96.4 kg
[~2017-11-22 07:08] MED LIST changes: +BUTA1CAP31 PO; +ONDA4TAB10 SL
[2017-11-22 07:10] VITALS: BP 149/93
--- NOTE | 2017-11-22 08:18 | PHYS DOC ---
Past History Past Medical History: Anxiety, Asthma, Depression, Other Past Surgical History: Appendectomy, , Tonsillectomy Smoking: Cigarettes Alcohol Use: None Drug Use: None Adult General Chief Complaint Chief Complaint: ABDOMINAL PAIN HPI HPI Patient is a 22 year old F who presents with nausea, abdominal pain and vaginal bleeding. She states that her nausea and generalized abdominal pain started yesterday afternoon. She also describes associated diarrhea. Her vaginal bleeding has been present since her last upper shot. She feels that her bleeding is intermittent. She denies chills, sweats and lightheadedness. She denies any other associated symptoms. She denies any other exacerbating or alleviating factors. Review of Systems Review of Systems Constitutional: Denies fever or chills [] Eyes: Denies change in visual acuity, redness, or eye pain [] HENT: Denies nasal congestion or sore throat [] Respiratory: Denies cough or shortness of breath [] Cardiovascular: No additional information not addressed in HPI [] GI: Denies vomiting, bloody stools or diarrhea [] : Denies dysuria or hematuria [] Musculoskeletal: Denies back pain or joint pain [] Integument: Denies rash or skin lesions [] Neurologic: Denies headache, focal weakness or sensory changes [] Endocrine: Denies polyuria or polydipsia [] All other systems were reviewed and found to be within normal limits, except as documented in this note. Family History Family History No pertinent family medical history was reported Current Medications Current Medications Medications were reviewed Allergies Allergies Allergies Coded Allergies Type Severity Reaction Last Updated Verified Penicillins Allergy Intermediate 01/08/15 No Sulfa (Sulfonamide Antibiotics) Allergy Intermediate 01/08/15 No aripiprazole Allergy Intermediate 01/08/15 No duloxetine Allergy Intermediate 01/08/15 No fluoxetine Allergy Intermediate 01/08/15 No latex Allergy Intermediate 01/08/15 No fentanyl Allergy Mild HIVES 03/12/14 No Physical Exam Physical Exam Constitutional: Well developed, well nourished, no acute distress, non-toxic appearance. [] HENT: Normocephalic, atraumatic Eyes: EOMI, conjunctiva normal, no discharge. [] Neck: Normal range of motion, no tenderness, supple, no stridor. [] Cardiovascular:Heart rate regular rhythm, Lungs & Thorax: Bilateral breath sounds clear to auscultation [] Abdomen: Bowel sounds normal, soft, no masses, no pulsatile masses. [] Mild generalized tenderness Skin: Warm, dry, no erythema, no rash. [] Back: No tenderness, no CVA tenderness. [] Extremities: No tenderness, no cyanosis, no clubbing, ROM intact, no edema. [] Neurologic: Alert and oriented X 3, normal motor function, normal sensory function, no focal deficits noted. [] Psychologic: Affect normal, judgement normal, mood normal. [] Current Patient Data Vital Signs Vital Signs Date Time Temp Pulse Resp B/P (MAP) Pulse Ox O2 Delivery O2 Flow Rate FiO2 11/22/17 07:10 97.9 99 16 100 Room Air Lab Results Laboratory Tests Test 11/22/17 07:30 POC Urine HCG, Qualitative hcg negative (Negative) EKG EKG [] Radiology/Procedures Radiology/Procedures [] Course & Med Decision Making Course & Med Decision Making Pertinent Labs and Imaging studies reviewed. (See chart for details) Labs and imaging were declined Dragon Disclaimer Dragon Disclaimer This electronic medical record was generated, in whole or in part, using a voice recognition dictation system. Departure Departure: Impression: Primary Impression: Viral gastroenteritis Disposition: HOME, SELF-CARE Condition: STABLE Referrals: EFFIE SMITH MD (PCP) Patient Instructions: Viral Gastroenteritis Additional Instructions: Pretty was seen in the ED for nausea, diarrhea and generalized abdominal pain. No emergency medical condition was found on history and physical exam. Her symptoms are most consistent with a viral gastroenteritis. She is encouraged to drink plenty of fluids and return to the emergency room if she develops new or worsening symptoms. She is advised follow-up with her primary care doctor as needed for further management. IZAIAH DE JESUS MD Nov 22, 2017 08:18
[2017-11-22 08:22] LABS: BILIRUBIN,URINE NEG (NEG); CLARITY,URINE CLEAR; COLOR,URINE YELLOW; GLUCOSE,URINE NEG (NEG); NITRITE,URINE NEG (NEG); UROBILINOGEN,URINE 0.2 mg/dL (0.2 mg/dL)
== END 2017-11-22 08:35 | disposition home or self-care (01) ==
LOC: ER 07:08
DX: A08.4 Viral intestinal infection, unspecified (principal); J45.909 Unspecified asthma, uncomplicated; F17.210 Nicotine dependence, cigarettes, uncomplicated; Z90.49 Acquired absence of other specified parts of digestive tract; Z98.890 Other specified postprocedural states; Z88.0 Allergy status to penicillin; Z88.2 Allergy status to sulfonamides; Z88.8 Allergy status to other drugs, medicaments and biological substances; Z91.040 Latex allergy status
CPT/HCPCS: 81003; 81025; 99282

== ENCOUNTER 2017-12-23 10:48 | Emergency (ER) | payer OTHER ==
[~2017-12-23] VITALS: Ht 165.1 cm; Wt 98.9 kg
--- NOTE | 2017-12-23 11:18 | PHYS DOC ---
Past History Past Medical History: Anxiety, Asthma, Bipolar, Depression, High Cholesterol Past Surgical History: Appendectomy, Tonsillectomy Smoking: Cigarettes Additional Smoking Information: 1/2ppd Alcohol Use: None Drug Use: None Adult General Chief Complaint Chief Complaint: ABDOMINAL PAIN HPI HPI This is a pleasant 22-year-old female who presents the emergency department today with epigastric abdominal pain. She describes as a sharp shooting pain and a burning sensation in the epigastrium that started last night after eating. Her pain is worse with eating improved with bowel rest. She denies any associated vomiting but has had nausea intermittently. She denies any blood in her stools. She denies being . She has a history of an appendectomy and a . The pain radiates to her back. She denies any fevers or chills. Past medical history: Anxiety depression bipolar, history of appendicitis, Allergies per EMR Surgical history, appendectomy and Social history: Positive for smoking. Negative for drinking or IV drug use. Review of systems is positive for chest pain. Negative for shortness of breath. Positive for abdominal pain. Negative for vomiting fevers or chills. All other review of systems is negative unless otherwise noted in history of present illness. ED course: 22-year-old female presenting to the emergency department today with epigastric abdominal pain. Upon arrival vital signs:. On examination, the patient is well-appearing, nontoxic appearing. Lungs are clear to auscultation bilaterally. Abdomen is soft nondistended nontender palpation without rebound tenderness or guarding. Negative McBurney's point. Negative Chapman sign. Upon auscultation, cardiac sounds regular rate and rhythm. No murmur. Otherwise unremarkable exam. IV established. IV fluids and nausea medications given. Pepcid given as well. Blood work sent along with ultrasound of the gallbladder. GI cocktail given. Blood work unremarkable. Ultrasound of gallbladder negative. Repeat abdominal exam continues to show soft nontender nondistended abdomen without rebound tenderness or guarding. The patient was then discharged home in stable condition to follow up with their primary care physician over the next 2- 3 days. They were to return if their symptoms worsened or if they were concerned for any reason. Oqat-bt-araf discharge instructions and return precautions were given. Patient's questions were answered to their satisfaction. Patient is comfortable with plan. Review of Systems Review of Systems SEE ABOVE. Allergies Allergies Allergies Coded Allergies Type Severity Reaction Last Updated Verified Penicillins Allergy Intermediate 01/08/15 No Sulfa (Sulfonamide Antibiotics) Allergy Intermediate 01/08/15 No aripiprazole Allergy Intermediate 01/08/15 No duloxetine Allergy Intermediate 01/08/15 No fluoxetine Allergy Intermediate 01/08/15 No latex Allergy Intermediate 01/08/15 No fentanyl Allergy Mild HIVES 03/12/14 No Physical Exam Physical Exam SEE ABOVE Constitutional: Well developed, well nourished, no acute distress, non-toxic appearance. [] HENT: Normocephalic, atraumatic, bilateral external ears normal, oropharynx moist, no oral exudates, nose normal. [] Eyes: PERRLA, EOMI, conjunctiva normal, no discharge. [] Neck: Normal range of motion, no tenderness, supple, no stridor. [] Cardiovascular:Heart rate regular rhythm, no murmur [] Lungs & Thorax: Bilateral breath sounds clear to auscultation [] Abdomen: Bowel sounds normal, soft, no tenderness, no masses, no pulsatile masses. [] Skin: Warm, dry, no erythema, no rash. [] Back: No tenderness, no CVA tenderness. [] Extremities: No tenderness, no cyanosis, no clubbing, ROM intact, no edema. [] Neurologic: Alert and oriented X 3, normal motor function, normal sensory function, no focal deficits noted. [] Psychologic: Affect normal, judgement normal, mood normal. [] Current Patient Data Vital Signs Vital Signs Date Time Temp Pulse Resp B/P (MAP) Pulse Ox O2 Delivery O2 Flow Rate FiO2 12/23/17 10:59 98.3 106 18 100 Room Air EKG EKG [] Radiology/Procedures Radiology/Procedures [] Course & Med Decision Making Course & Med Decision Making Pertinent Labs and Imaging studies reviewed. (See chart for details) [] Dragon Disclaimer Dragon Disclaimer This electronic medical record was generated, in whole or in part, using a voice recognition dictation system. Departure Departure: Impression: Primary Impression: Abdominal pain Disposition: HOME, SELF-CARE Condition: STABLE Referrals: EFFIE SMITH MD (PCP) Patient Instructions: Abdominal Pain, [id number] Additional Instructions: Thank you for allowing us to participate in your care today. Followup with your primary care physician in 3 days if your symptoms do not improve. Call your Primary Doctor tomorrow and inform them of your visit today. If you do not have a primary care provider you can ask for a list of our primary care providers. Return to the emergency department you have any new or concerning findings. This should be evaluated by the primary care physician and any necessary consulting services for continued management within a few days after discharge. Return to emergency room if you have any new or concerning symptoms including but not limited to fever, chills, nausea, vomiting, intractable pain, any new rashes, chest pain, shortness of air, uncontrolled bleeding, difficulty breathing, and/or vision loss. Scripts Famotidine (PEPCID) 20 Mg Tablet 1 TAB PO BID, #10 TAB 0 Refills Prov: LELA MARIN MD 12/23/17 LELA MARIN MD Dec 23, 2017 11:18
[2017-12-23] MEDS ORDERED: ONDANSETRON PF 4 MG/2 ML VIAL. ONE (11:21)
[2017-12-23] MEDS ORDERED: IV NORMAL SALINE 1,000ML 1,000 ML IV ONE (11:30)
[2017-12-23] MEDS ORDERED: ONDANSETRON PF 4 MG/2 ML VIAL. IV ONE (11:30)
[2017-12-23 11:42] LABS: BASO % 1 % (0-3); EOS # 0.1 x10^3/uL (0.0-0.7); EOS % 1 % (0-3); HEMATOCRIT 39.8 % (36.0-47.0); HEMOGLOBIN 13.6 g/dL (12.0-15.5); LYMPH # 2.4 x10^3/uL (1.0-4.8); LYMPH % 33 % (24-48); MEAN CORPUSCULAR HEMOGLOBIN 29 pg (25-35); MEAN CORPUSCULAR HGB CONC 34 g/dL (31-37); MEAN CORPUSCULAR VOLUME 83 fL (79-100); MONO # 0.5 x10^3/uL (0.0-1.1); MONO % 7 % (0-9); NEUT # 4.2 x10^3uL (1.8-7.7); NEUT % 58 % (31-73); PLATELET COUNT 229 x10^3/uL (140-400); RED BLOOD COUNT 4.77 x10^6/uL (3.50-5.40); RED CELL DISTRIBUTION WIDTH 14.2 % (11.5-14.5); WHITE BLOOD COUNT 7.1 x10^3/uL (4.0-11.0)
[2017-12-23 11:50] LABS: PREG TEST PT QUAL NEGATIVE (NEG)
[2017-12-23 11:58] LABS: BACTERIA,URINE FEW /HPF (0-FEW); BILIRUBIN,URINE NEG (NEG); CLARITY,URINE HAZY; COLOR,URINE YELLOW; GLUCOSE,URINE NEG (NEG); NITRITE,URINE NEG (NEG); RBC,URINE 0 /HPF (0-2); UROBILINOGEN,URINE 0.2 mg/dL (0.2 mg/dL); WBC,URINE 0 /HPF (0-4)
[2017-12-23 11:59] LABS: SQUAMOUS EPITHELIAL CELL,UR FEW /LPF
[2017-12-23 12:00] LABS: ALBUMIN 3.7 g/dL (3.4-5.0); ALK PHOS 78 U/L (46-116); ALT (SGPT) 62 U/L (14-59); ANION GAP 9 (6-14); AST (SGOT) 22 U/L (15-37); BLOOD UREA NITROGEN 11 mg/dL (7-20); CALCIUM 9.2 mg/dL (8.5-10.1); CARBON DIOXIDE 27 mmol/L (21-32); CHLORIDE 104 mmol/L (98-107); CREATININE 0.7 mg/dL (0.6-1.0); DIRECT BILIRUBIN < 0.1 mg/dL (0.0-0.2); GFR 104.6; GLUCOSE 120 mg/dL (70-99); LIPASE 93 U/L (73-393); POTASSIUM 4.3 mmol/L (3.5-5.1); SODIUM 140 mmol/L (136-145); TOTAL BILIRUBIN 0.2 mg/dL (0.2-1.0); TOTAL PROTEIN 7.3 g/dL (6.4-8.2)
--- NOTE | 2017-12-23 12:10 | RAD ---
Ultrasound abdomen limited 12/23/2017 Clinical indication: Epigastric pain. COMPARISON: CT abdomen and pelvis 05/21/2016 FINDINGS: Utilized pancreatic body unremarkable. There is mild diffuse increased echogenicity throughout the hepatic parenchyma but it was steatosis without discrete mass or fluid collection. Gallbladder is normal in size and configuration without wall thickening, pericholecystic fluid or cholelithiasis. No intra or extrahepatic biliary ductal dilatation. Common bile duct measures 0.4 cm. Right kidney measures 10.3 cm in length without collecting system dilatation or abnormal perinephric fluid collection. IMPRESSION: 1. Mild hepatic steatosis. 2. No cholelithiasis or sonographic evidence of acute cholecystitis. Electronically signed by: Mu Schroeder MD (12/23/2017 12:06 PM) [id number]
[2017-12-23] MEDS ORDERED: FAMO-63 PO (12:40)
[2017-12-23] MEDS ORDERED: FAMOTIDINE 20 MG/2 ML VIAL IVP ONE (12:45)
[2017-12-23] MEDS ORDERED: LIDO:MAALOX 1:1 20 ML SINGLE DOSE PO ONE (12:45)
[2017-12-23 13:01] VITALS: BP 150/82
== END 2017-12-23 13:10 | disposition home or self-care (01) ==
LOC: ER 10:48
DX: R10.13 Epigastric pain (principal); J45.909 Unspecified asthma, uncomplicated; E03.9 Hypothyroidism, unspecified; Z90.49 Acquired absence of other specified parts of digestive tract; F17.210 Nicotine dependence, cigarettes, uncomplicated; Z88.0 Allergy status to penicillin; Z88.2 Allergy status to sulfonamides; Z88.8 Allergy status to other drugs, medicaments and biological substances; Z91.040 Latex allergy status
CPT/HCPCS: 36415; 76705; 80048; 80076; 81001; 83690; 84703; 85025; 96361; 96374; 96375; 99285; J2405; S0028; J7030

== ENCOUNTER 2018-01-31 16:02 | Emergency (ER) | payer OTHER ==
[~2018-01-31] VITALS: Ht 152.4 cm; Wt 98.4 kg
[~2018-01-31 16:02] MED LIST changes: +FAMO-63 PO
[2018-01-31 16:05] VITALS: BP 127/86
[2018-01-31] MEDS ORDERED: MUPI22OI2 TP (17:20)
--- NOTE | 2018-01-31 17:20 | PHYS DOC ---
Past History Past Medical History: Anxiety, Asthma, Bipolar, Depression, High Cholesterol Past Surgical History: Appendectomy, Tonsillectomy Smoking: Cigarettes Alcohol Use: None Drug Use: None Adult General Chief Complaint Chief Complaint: FINGER INJURY HPI HPI Patient is a 22 year old F who presents with right ring finger skin lesion. She was at her primary care doctors office yesterday and had an ingrown nail abscess drained. She was given a prescription for oral antibiotics but was unable to fill the prescription because she was allergic. Her symptoms have improved but she continues to have mild redness. She has no other associated symptoms and no other exacerbating/alleviating factors. Review of Systems Review of Systems Constitutional: Denies fever or chills [] Eyes: Denies change in visual acuity, redness, or eye pain [] HENT: Denies nasal congestion or sore throat [] Respiratory: Denies cough or shortness of breath [] Cardiovascular: No additional information not addressed in HPI [] GI: Denies abdominal pain, nausea, vomiting, bloody stools or diarrhea [] : Denies dysuria or hematuria [] Musculoskeletal: Denies back pain or joint pain [] Integument: Denies rash Neurologic: Denies headache, focal weakness or sensory changes [] Endocrine: Denies polyuria or polydipsia [] All other systems were reviewed and found to be within normal limits, except as documented in this note. Family History Family History No pertinent family medical history was reported Current Medications Current Medications Current medications reviewed Allergies Allergies Allergies Coded Allergies Type Severity Reaction Last Updated Verified Penicillins Allergy Intermediate 01/08/15 No Sulfa (Sulfonamide Antibiotics) Allergy Intermediate 01/08/15 No aripiprazole Allergy Intermediate 01/08/15 No duloxetine Allergy Intermediate 01/08/15 No fluoxetine Allergy Intermediate 01/08/15 No latex Allergy Intermediate 01/08/15 No fentanyl Allergy Mild HIVES 03/12/14 No Physical Exam Physical Exam Constitutional: Well developed, well nourished, no acute distress, non-toxic appearance. [] HENT: Normocephalic, atraumatic, Eyes: EOMI, conjunctiva normal, no discharge. [] Neck: Normal range of motion, no tenderness, supple, no stridor. [] Cardiovascular:Heart rate regular rhythm, no murmur [] Lungs & Thorax: Bilateral breath sounds clear to auscultation [] Abdomen: Bowel sounds normal, soft, no tenderness, no masses, no pulsatile masses. [] Skin: Right fourth finger lesion medial to the nail was noted to have mild redness without warmth pain or abscess noted Neurologic: Alert and oriented X 3, normal motor function, normal sensory function, no focal deficits noted. [] Psychologic: Affect normal, judgement normal, mood normal. [] Current Patient Data Vital Signs Vital Signs Date Time Temp Pulse Resp B/P (MAP) Pulse Ox O2 Delivery O2 Flow Rate FiO2 01/31/18 16:05 99.1 113 22 96 Room Air EKG EKG [] Radiology/Procedures Radiology/Procedures [] Course & Med Decision Making Course & Med Decision Making Pertinent Labs and Imaging studies reviewed. (See chart for details) [] Dragon Disclaimer Dragon Disclaimer This electronic medical record was generated, in whole or in part, using a voice recognition dictation system. Departure Departure: Impression: Primary Impression: Ingrown fingernail Disposition: HOME, SELF-CARE Condition: STABLE Referrals: EFFIE SMITH MD (PCP) Patient Instructions: Cellulitis Additional Instructions: Pretty was seen in the emergency department for finger pain. No emergency medical condition was found on history or physical exam. Her symptoms are most consistent with an ingrown fingernail. She was given a prescription for topical antibiotics to use as needed if her symptoms worsen. She was advised to keep her hands clean. She was encouraged follow-up with her primary care doctor as needed for further management. Scripts Mupirocin (MUPIROCIN) 22 Gm Oint...g. 1 ERIC TP TID for 7 Days, #22 GM Prov: IZAIAH DE JESUS MD 01/31/18 IZAIAH DE JESUS MD Jan 31, 2018 17:20
== END 2018-01-31 17:25 | disposition home or self-care (01) ==
LOC: ER 16:02
DX: L60.0 Ingrowing nail (principal); J45.909 Unspecified asthma, uncomplicated; F41.9 Anxiety disorder, unspecified; F31.9 Bipolar disorder, unspecified; E78.00 Pure hypercholesterolemia, unspecified; F17.210 Nicotine dependence, cigarettes, uncomplicated; Z88.0 Allergy status to penicillin; Z88.2 Allergy status to sulfonamides; Z88.5 Allergy status to narcotic agent; Z88.8 Allergy status to other drugs, medicaments and biological substances; Z91.040 Latex allergy status
CPT/HCPCS: 99283

== ENCOUNTER 2018-03-22 12:39 | Emergency (ER) | payer OTHER ==
[~2018-03-22] VITALS: Ht 152.4 cm; Wt 96.4 kg
[~2018-03-22 12:39] MED LIST changes: +MUPI22OI2 TP
[2018-03-22 12:50] VITALS: BP 136/83
[2018-03-22] MEDS: ALPRAZolam 0.25 MG TABLET PO ONE (13:20)
--- NOTE | 2018-03-22 13:36 | PHYS DOC ---
Past History Past Medical History: Anxiety, Asthma, Bipolar, Depression, High Cholesterol Past Surgical History: Appendectomy, Tonsillectomy Smoking: Cigarettes Alcohol Use: None Drug Use: None Adult General Chief Complaint Chief Complaint: CHEST PAIN [facility] HPI 23-year-old female patient with history of bipolar disorder and frequent emergency room visits complaining of intermittent episodes of migratory chest pain since yesterday as a sharp pain in bilateral chest.. Patient complaining of shortness of breath, hyperventilation, dizziness, palpitation at the same time of pain and patient said the pain lasts for a few seconds and rated her pain 7/10. Patient states she was seen at [facility] today because of abdominal pain and chronic vaginal bleeding for several months and was told to follow with her [employer]. Review of Systems Review of Systems Constitutional: Denies fever or chills [] Eyes: Denies change in visual acuity, redness, or eye pain [] HENT: Denies nasal congestion or sore throat [] Respiratory: Denies cough, reports shortness of breath Cardiovascular: No additional information not addressed in HPI [] GI: Denies abdominal pain, vomiting, bloody stools or diarrhea , reports nausea [] : Denies dysuria or hematuria [] Musculoskeletal: Denies back pain or joint pain [] Integument: Denies rash or skin lesions [] Neurologic: Denies headache, focal weakness or sensory changes , reports dizziness[] Endocrine: Denies polyuria or polydipsia [] All other systems were reviewed and found to be within normal limits, except as documented in this note. Current Medications Current Medications Current Medications Medications (Trade) Dose Ordered Sig/[facility] Start Time Stop Time Status Last Admin Dose Admin Alprazolam (Xanax) 0.5 mg 1X ONCE 03/22/18 13:30 03/22/18 13:31 03/22/18 13:20 0.5 MG Allergies Allergies Allergies Coded Allergies Type Severity Reaction Last Updated Verified Penicillins Allergy Intermediate 01/08/15 No Sulfa (Sulfonamide Antibiotics) Allergy Intermediate 01/08/15 No aripiprazole Allergy Intermediate 01/08/15 No duloxetine Allergy Intermediate 01/08/15 No fluoxetine Allergy Intermediate 01/08/15 No latex Allergy Intermediate 01/08/15 No fentanyl Allergy Mild HIVES 03/12/14 No Physical Exam Physical Exam Constitutional: Well nourished, mild distress, non-toxic appearance, anxious, morbidly obese. [] HENT: Normocephalic, atraumatic Eyes: PERRLA, EOMI, conjunctiva normal, no discharge. [] Neck: Normal range of motion, no tenderness, supple, no stridor. [] Cardiovascular: Tachycardia, no murmur [] Lungs & Thorax: Bilateral breath sounds clear to auscultation [] Abdomen: Bowel sounds normal, soft, no tenderness, no masses, no pulsatile masses. [] Skin: Warm, dry, no erythema, no rash. [] Back: No tenderness, no CVA tenderness. [] Extremities: No tenderness, no cyanosis, no clubbing, ROM intact, no edema. [] Neurologic: Alert and oriented X 3, normal motor function, normal sensory function, no focal deficits noted. [] Psychologic: Anxious, judgement normal, mood normal. [] EKG EKG EKG interpreted by me. EKG at 1243 showed[ sinus tachycardia at rate of 107, otherwise normal EKG Radiology/Procedures Radiology/Procedures [] Course & Med Decision Making Course & Med Decision Making Evaluation of patient in ER showed 23-year-old female patient with history of bipolar disorder and frequent emergency room visits and complaining of intermittent episodes of chest pain since yesterday with hyperventilation and anxiety attack. Patient had tachycardia tonsillar arrival to ER that improved after rest. EKG was unremarkable except for sinus tachycardia. Patient treated with Xanax and felt better. Patient instructed to follow with her [employer]BLER and psychiatric. Dragon Disclaimer Dragon Disclaimer This electronic medical record was generated, in whole or in part, using a voice recognition dictation system. Departure Departure: Impression: Primary Impression: Anxiety attack Additional Impressions: Hyperventilation Non-cardiac chest pain Tobacco abuse Tobacco abuse counseling Morbid obesity Disposition: HOME, SELF-CARE (At 1335) Condition: IMPROVED Referrals: EFFIE SMITH MD (PCP) Patient Instructions: Anxiety and Panic Attacks, Hyperventilation Additional Instructions: Drink plenty of liquids Follow-up with your primary care physician in 3-5 days Return to ER if not getting better Problem Qualifiers RYAN BLANK MD Mar 22, 2018 13:36
--- NOTE | 2018-03-25 18:54 | EKG ---
[address] [address] Test Date: 2018-03-22 Test Time: 12:43:31 Pat Name: ROHAN JACKSON Department: Room: Gender: F [employer] Hel[employer]: FE : 1995 Requested By: RYAN BLANK Order Number: [id number] Reading MD: Elias Duncan Measurements Intervals [place] Rate: 107 P: 31 WA: 148 QRS: 59 QRSD: 92 T: 24 QT: 330 QTc: 446 Interpretive Statements SINUS TACHYCARDIA OTHERWISE NORMAL ECG RI6.01 Compared to ECG 05/22/2017 01:54:45 Sinus rhythm no longer present Electronically Signed On 03-26-2018 10:46:13 CDT by Elias Duncan
== END 2018-03-22 14:04 | disposition home or self-care (01) ==
LOC: ER 12:39
DX: F41.9 Anxiety disorder, unspecified (principal); R06.4 Hyperventilation; J45.909 Unspecified asthma, uncomplicated; F31.9 Bipolar disorder, unspecified; E78.00 Pure hypercholesterolemia, unspecified; F17.210 Nicotine dependence, cigarettes, uncomplicated; E66.01 Morbid (severe) obesity due to excess calories; Z68.41 Body mass index [BMI] 40.0-44.9, adult; Z88.0 Allergy status to penicillin; Z88.2 Allergy status to sulfonamides; Z88.8 Allergy status to other drugs, medicaments and biological substances; Z91.040 Latex allergy status
CPT/HCPCS: 99284

== ENCOUNTER 2018-03-26 10:26 | Emergency (ER) | payer OTHER ==
[~2018-03-26] VITALS: Ht 152.4 cm; Wt 96.4 kg
[2018-03-26] MEDS ORDERED: KETOROLAC 60 MG/2 ML VIAL. IM ONE (11:15)
--- NOTE | 2018-03-26 12:20 | RAD ---
EXAM: Abdomen sonogram limited. HISTORY: Pain. TECHNIQUE: Sonographic imaging of the abdomen was performed. COMPARISON: 12/23/2017. FINDINGS: The liver is enlarged. There is hepatic steatosis. No focal hepatic lesion is seen. The gallbladder is unremarkable. The common bile duct is normal in caliber. The right kidney is unremarkable. The inferior vena cava is patent. The pancreas is partially obscured due to bowel gas. IMPRESSION: 1. Hepatomegaly and hepatic steatosis. 2. Partially obscured pancreas due to bowel gas. 3. Otherwise, unremarkable abdomen sonogram. Electronically signed by: Dee Parker MD (03/26/2018 12:16 PM) [id number]
[2018-03-26 12:33] VITALS: BP 132/71
[2018-03-26] MEDS ORDERED: Percogesic PO (12:38)
[2018-03-26] MEDS ORDERED: RANI150T21 PO (12:38)
--- NOTE | 2018-03-26 12:38 | PHYS DOC ---
Past History Past Medical History: Anxiety, Asthma, Bipolar, Depression, High Cholesterol Past Surgical History: Appendectomy, Tonsillectomy Smoking: Cigarettes Alcohol Use: None Drug Use: None Adult General Chief Complaint Chief Complaint: ABDOMINAL PAIN HPI HPI 23-year-old female patient with history of bipolar disorder and anxiety and frequent emergency room visits complaining of epigastric and upper abdominal pain for 1 week as a sharp pain with radiation to shoulder blades and increasing with eating fatty food. Patient complaining of nausea without diarrhea and vomiting and urinary symptom. She was seen by her primary care physician yesterday and gallbladder ultrasound was ordered but patient states she came to radiology but they didn't find any order and patient became anxious and came to ER. She rated her pain as a severe pain and states the pain improved with Toradol given by her primary care physician yesterday but the pain returned again. Patient states she had negative tests at her resent visit to [facility] emergency room for the same problem. Review of Systems Review of Systems Constitutional: Denies fever or chills [] Eyes: Denies change in visual acuity, redness, or eye pain [] HENT: Denies nasal congestion or sore throat [] Respiratory: Denies cough or shortness of breath [] Cardiovascular: No additional information not addressed in HPI [] GI: Reports abdominal pain, nausea, denies vomiting, bloody stools or diarrhea [ ] : Denies dysuria or hematuria [] Musculoskeletal: Denies back pain or joint pain [] Integument: Denies rash or skin lesions [] Neurologic: Denies headache, focal weakness or sensory changes [] Endocrine: Denies polyuria or polydipsia [] All other systems were reviewed and found to be within normal limits, except as documented in this note. Current Medications Current Medications Current Medications Medications (Trade) Dose Ordered Sig/Gama Start Time Stop Time Status Last Admin Dose Admin Ketorolac Tromethamine (Toradol) 60 mg 1X ONCE 03/26/18 11:15 03/26/18 11:16 DC 03/26/18 11:01 60 MG Allergies Allergies Allergies Coded Allergies Type Severity Reaction Last Updated Verified Penicillins Allergy Intermediate 01/08/15 No Sulfa (Sulfonamide Antibiotics) Allergy Intermediate 01/08/15 No aripiprazole Allergy Intermediate 01/08/15 No duloxetine Allergy Intermediate 01/08/15 No fluoxetine Allergy Intermediate 01/08/15 No latex Allergy Intermediate 01/08/15 No fentanyl Allergy Mild HIVES 03/12/14 No Physical Exam Physical Exam Constitutional: Well developed, well nourished, mild distress, non-toxic appearance. [] HENT: Normocephalic, atraumatic oropharynx moist Neck: Normal range of motion, no tenderness, supple, no stridor. [] Cardiovascular:Heart rate regular rhythm, no murmur [] Lungs & Thorax: Bilateral breath sounds clear to auscultation [] Abdomen: Bowel sounds normal, soft, no tenderness, guarding in right upper quadrant and epigastric area, no masses, no pulsatile masses. [] Skin: Warm, dry, no erythema, no rash. [] Back: No tenderness, no CVA tenderness. [] Extremities: No tenderness, no cyanosis, no clubbing, ROM intact, no edema. [] Neurologic: Alert and oriented X 3, normal motor function, normal sensory function, no focal deficits noted. [] Psychologic: Affect anxious, judgement normal, mood normal. [] Current Patient Data Vital Signs Vital Signs Date Time Temp Pulse Resp B/P (MAP) Pulse Ox O2 Delivery O2 Flow Rate FiO2 03/26/18 11:30 99 18 137/76 (96) 98 Room Air 03/26/18 10:36 98.7 EKG EKG [] Radiology/Procedures Radiology/Procedures [][address] [address] IMAGING REPORT Signed PATIENT: ROHAN JACKSON ACCOUNT: [id number] : 1995 LOCATION: ER AGE: 23 SEX: F EXAM STATUS: REG ER ORD. PHYSICIAN: RYAN BLANK MD REASON: Right upper quadrant pain PROCEDURE: ABDOMEN LTD EXAM: Abdomen sonogram limited. HISTORY: Pain. TECHNIQUE: Sonographic imaging of the abdomen was performed. COMPARISON: 12/23/2017. FINDINGS: The liver is enlarged. There is hepatic steatosis. No focal hepatic lesion is seen. The gallbladder is unremarkable. The common bile duct is normal in caliber. The right kidney is unremarkable. The inferior vena cava is patent. The pancreas is partially obscured due to bowel gas. IMPRESSION: 1. Hepatomegaly and hepatic steatosis. 2. Partially obscured pancreas due to bowel gas. 3. Otherwise, unremarkable abdomen sonogram. Electronically signed by: Dee Burgess MD (03/26/2018 12:16 PM) [place] [id number] DICTATED AND SIGNED BY: DEE BURGESS MD DATE: 03/26/18 [id number] CC: RYAN BLANK MD; RUTH BHANDARI ~ Course & Med Decision Making Course & Med Decision Making Pertinent Imaging studies reviewed. (See chart for details) Evaluation of patient in ER showed 23-year-old female patient with history of bipolar disorder and abdominal pain for 1 week presented to ER because she was not able to have ultrasound ordered by her physician yesterday. Patient was very anxious and treated with Toradol and felt better. Gallbladder ultrasound showed fatty liver without gallbladder problem. Patient informed was test results needs to take smaller portion of food more frequently and follow up with her primary care physician. Dragon Disclaimer Dragon Disclaimer This electronic medical record was generated, in whole or in part, using a voice recognition dictation system. Departure Departure: Impression: Primary Impression: Epigastric pain Additional Impressions: Nausea Anxiety Morbid obesity Tobacco abuse Tobacco abuse counseling Disposition: HOME, SELF-CARE (At 1233) Condition: IMPROVED Referrals: RUTH BHANDARI (PCP) Patient Instructions: Anxiety and Panic Attacks, Peptic Ulcer Disease, Easy-to- Read, Smoking Cessation Additional Instructions: Drink plenty of liquids Follow-up with your primary care physician in 3-5 days Return to ER if not getting better Take a small portion of food 4-5 times a day Scripts [Percogesic] No Conflict Check 1 TAB PO QID PRN for PAIN, #14 Prov: RYAN BLANK MD 03/26/18 Ranitidine Hcl (ZANTAC) 150 Mg Tablet 1 TAB PO BID, #30 TAB 3 Refills Prov: RYAN BLANK MD 03/26/18 Problem Qualifiers RYAN BLANK MD Mar 26, 2018 12:38
== END 2018-03-26 12:46 | disposition home or self-care (01) ==
LOC: ER 10:26
DX: R10.13 Epigastric pain (principal); R11.0 Nausea; F41.9 Anxiety disorder, unspecified; F17.210 Nicotine dependence, cigarettes, uncomplicated; J45.909 Unspecified asthma, uncomplicated; E78.00 Pure hypercholesterolemia, unspecified; F31.9 Bipolar disorder, unspecified; Z71.6 Tobacco abuse counseling; Z90.49 Acquired absence of other specified parts of digestive tract; Z88.0 Allergy status to penicillin; Z88.2 Allergy status to sulfonamides; Z88.8 Allergy status to other drugs, medicaments and biological substances; Z91.040 Latex allergy status
CPT/HCPCS: 76705; 96372; 99284; J1885

== ENCOUNTER 2018-06-04 21:45 | Emergency (ER) | payer OTHER ==
[~2018-06-04 21:45] MED LIST changes: +Percogesic PO; +RANI150T21 PO
== END 2018-06-04 22:00 | disposition left against medical advice (07) ==
LOC: ER 21:45
DX: S99.912A Unspecified injury of left ankle, initial encounter (principal); Z53.21 Procedure and treatment not carried out due to patient leaving prior to being seen by health care provider; X58.XXXA Exposure to other specified factors, initial encounter; Y93.89 Activity, other specified; Y92.89 Other specified places as the place of occurrence of the external cause; Y99.8 Other external cause status

== ENCOUNTER 2018-09-07 18:25 | Emergency (ER) | payer OTHER ==
[~2018-09-07] VITALS: Ht 152.4 cm; Wt 96.4 kg
[~2018-09-07 18:25] MED LIST changes: +HYDR-2155 PO; -HYDR-2758 PO; +HYDR-3165 PO; -HYDR-971 PO
--- NOTE | 2018-09-07 19:13 | PHYS DOC ---
Past History Past Medical History: Anxiety, Asthma, Bipolar, Depression, High Cholesterol Past Surgical History: Appendectomy, Tonsillectomy Smoking: Cigarettes Alcohol Use: None Drug Use: None Adult General Chief Complaint Chief Complaint: HEADACHE HPI HPI Patient is a 23 year old female who presents with complaint of headache. Patient states that her symptoms started 2 days ago. Patient notes that she was seen by her primary doctor 3 days ago and diagnosed with an ear infection. Patient was started on Biaxin and Symbicort due to accompanied pleurisy. She states that her migraine started the next day. States headache is frontal and radiates towards the back of her head which is consistent with previous migraines. Admits to photophobia and nausea. Denies any focal neurologic symptoms. Patient states that she tried Tylenol at home with no relief in symptoms. Describes the pain as throbbing. Review of Systems Review of Systems Constitutional: Denies fever or chills [] Eyes: Denies change in visual acuity, redness, or eye pain [] HENT: Denies nasal congestion or sore throat [] Respiratory: Denies cough or shortness of breath [] Cardiovascular: Denies substernal chest pain or edema[] GI: Nausea, denies abdominal pain, vomiting, bloody stools or diarrhea [] : Denies dysuria or hematuria [] Musculoskeletal: Denies back pain or joint pain [] Integument: Denies rash or skin lesions [] Neurologic: Headache, denies focal weakness or sensory changes [] All other systems were reviewed and found to be within normal limits, except as documented in this note. Current Medications Current Medications Current Medications Medications (Trade) Dose Ordered Sig/Gama Start Time Stop Time Status Last Admin Dose Admin Ketorolac Tromethamine (Toradol Im) 60 mg 1X ONCE 09/07/18 19:15 09/07/18 19:16 UNV Allergies Allergies Allergies Coded Allergies Type Severity Reaction Last Updated Verified Penicillins Allergy Intermediate 01/08/15 No Sulfa (Sulfonamide Antibiotics) Allergy Intermediate 01/08/15 No aripiprazole Allergy Intermediate 01/08/15 No duloxetine Allergy Intermediate 01/08/15 No fluoxetine Allergy Intermediate 01/08/15 No latex Allergy Intermediate 01/08/15 No fentanyl Allergy Mild HIVES 03/12/14 No Physical Exam Physical Exam Constitutional: Alert, afebrile, appears in [id number] discomfort. [] HENT: Normocephalic, atraumatic, bilateral external ears normal, oropharynx moist, no oral exudates, nose normal. [] Eyes: PERRLA, EOMI, conjunctiva normal, no discharge. [] Neck: Normal range of motion, no tenderness, supple, no stridor. [] Cardiovascular:Heart rate regular rhythm, no murmur [] Lungs & Thorax: Bilateral breath sounds clear to auscultation [] Abdomen: Bowel sounds normal, soft, no tenderness, no masses, no pulsatile masses. [] Skin: Warm, dry, no erythema, no rash. [] Back: No tenderness, no CVA tenderness. [] Extremities: No tenderness, no cyanosis, no clubbing, ROM intact, no edema. [] Neurologic: Alert and oriented X 3, normal motor function, normal sensory function, no focal deficits noted. [] Current Patient Data Vital Signs Vital Signs Date Time Temp Pulse Resp B/P (MAP) Pulse Ox O2 Delivery O2 Flow Rate FiO2 09/07/18 18:25 99.0 97 18 98 Room Air Lab Results Laboratory Tests Test 09/07/18 19:02 Bedside Urine HCG, Qualitative hcg negative Current Medications Medications (Trade) Dose Ordered Sig/Gama Route PRN Reason Start Time Stop Time Status Last Admin Dose Admin Ketorolac Tromethamine (Toradol Im) 60 mg 1X ONCE IM 09/07/18 19:15 09/07/18 19:16 UNV EKG EKG Not performed[] Radiology/Procedures Radiology/Procedures Not performed[] Course & Med Decision Making Course & Med Decision Making Pertinent Labs and Imaging studies reviewed. (See chart for details) Vital signs are stable. Patient's symptoms appear consistent with previous episodes of migraine. Patient states that Toradol has helped her in the past when she has visited the emergency department for previous migraines. 60 mg of IM Toradol given with significant improvement in symptoms. Prescribed Naprosyn for continued treatment as outpatient and recommended follow-up in 3-4 days with primary doctor for recheck. Advised return to emergency department for any worsening symptoms. Patient was understanding and in agreement with treatment plan. Dragon Disclaimer Dragon Disclaimer This electronic medical record was generated, in whole or in part, using a voice recognition dictation system. Departure Departure: Impression: Primary Impression: Migraine Disposition: HOME, SELF-CARE Condition: IMPROVED Referrals: AMRIT CARCAMO (PCP) Patient Instructions: Migraine Headache Additional Instructions: Follow-up with your primary doctor in 3-4 days for reevaluation. Return to the emergency department for any worsening symptoms. Scripts Naproxen (NAPROSYN) 500 Mg Tablet 1 TAB PO BID PRN for HEADACHE, #20 TAB 0 Refills Prov: PATRICE COLON MD 09/07/18 Problem Qualifiers Primary Impression: Migraine Migraine type: unspecified Status migrainosus presence: without status migrainosus Intractability: not intractable Qualified Codes: G43.909 - Migraine, unspecified, not intractable, without status migrainosus PATRICE COLON MD Sep 07, 2018 19:13
[2018-09-07] MEDS ORDERED: KETOROLAC 60 MG/2 ML VIAL. IM ONE (19:15)
[2018-09-07 19:29] LABS: BILIRUBIN,URINE NEG (NEG); CLARITY,URINE CLEAR; COLOR,URINE YELLOW; NITRITE,URINE NEG (NEG); UROBILINOGEN,URINE 0.2 mg/dL (0.2 mg/dL)
[2018-09-07 19:30] LABS: GLUCOSE,URINE NEG (NEG)
[2018-09-07] MEDS ORDERED: NAPR-683 PO (19:39)
[2018-09-07 19:51] VITALS: BP 105/56
== END 2018-09-07 19:48 | disposition home or self-care (01) ==
LOC: ER 18:25
DX: G43.909 Migraine, unspecified, not intractable, without status migrainosus (principal); F41.9 Anxiety disorder, unspecified; J45.909 Unspecified asthma, uncomplicated; F31.9 Bipolar disorder, unspecified; E78.00 Pure hypercholesterolemia, unspecified; F17.210 Nicotine dependence, cigarettes, uncomplicated; Z88.0 Allergy status to penicillin; Z88.2 Allergy status to sulfonamides; Z91.040 Latex allergy status; Z88.4 Allergy status to anesthetic agent; Z88.8 Allergy status to other drugs, medicaments and biological substances
CPT/HCPCS: 81003; 81025; 96372; 99283; J1885

== ENCOUNTER 2018-09-24 10:18 | Emergency (ER) | payer OTHER ==
[~2018-09-24] VITALS: Ht 152.4 cm; Wt 93.8 kg
[~2018-09-24 10:18] MED LIST changes: +ALBU2.5V8 IH; +ALBU2.5V8 INH; -ALBU8.5H8 IH; -ALBU8.5H8 INH
[2018-09-24 11:19] LABS: BASO % 1 % (0-3); EOS # 0.1 x10^3/uL (0.0-0.7); EOS % 2 % (0-3); HEMATOCRIT 41.5 % (36.0-47.0); HEMOGLOBIN 14.6 g/dL (12.0-15.5); LYMPH # 2.2 x10^3/uL (1.0-4.8); LYMPH % 31 % (24-48); MEAN CORPUSCULAR HEMOGLOBIN 30 pg (25-35); MEAN CORPUSCULAR HGB CONC 35 g/dL (31-37); MEAN CORPUSCULAR VOLUME 84 fL (79-100); MONO # 0.4 x10^3/uL (0.0-1.1); MONO % 6 % (0-9); NEUT # 4.3 x10^3uL (1.8-7.7); NEUT % 60 % (31-73); PLATELET COUNT 240 x10^3/uL (140-400); RED BLOOD COUNT 4.94 x10^6/uL (3.50-5.40); RED CELL DISTRIBUTION WIDTH 13.1 % (11.5-14.5); WHITE BLOOD COUNT 7.1 x10^3/uL (4.0-11.0)
[2018-09-24 11:29] LABS: PREG TEST PT QUAL NEGATIVE (NEG)
[2018-09-24 11:31] LABS: ALBUMIN 3.9 g/dL (3.4-5.0); CALCIUM 9.3 mg/dL (8.5-10.1); GFR 68.7; POTASSIUM 4.1 mmol/L (3.5-5.1); TOTAL BILIRUBIN 0.2 mg/dL (0.2-1.0); TOTAL PROTEIN 7.8 g/dL (6.4-8.2)
--- NOTE | 2018-09-24 12:19 | PHYS DOC ---
Past History Past Medical History: Anxiety, Asthma, Bipolar, Depression, High Cholesterol, Other Past Surgical History: Appendectomy, , Tonsillectomy Smoking: Cigarettes Alcohol Use: None Drug Use: None Adult General Chief Complaint Chief Complaint: VAGINAL BLEEDING [facility] HPI Patient is a 23-year-old female who presents with complaint of heavy vaginal bleeding and right sided lower abdominal/pelvic pain. Patient states that she recently completed her menstrual cycle this month that lasted 11 days. She states that the bleeding return just a few days later and over the last 3 days has been fairly heavy in flow, stating that she is going through 1 pad every 2 hours. She rates the pain in her abdomen is being moderate. She states that this is very similar to when she has had ovarian cysts in the past. Review of Systems Review of Systems Constitutional: Denies fever or chills [] Respiratory: Denies cough or shortness of breath [] Cardiovascular: No additional information not addressed in HPI [] GI: Complains of lower abdominal pain without nausea, vomiting or diarrhea [] : Denies dysuria. Complains of heavy vaginal bleeding. [] Musculoskeletal: Denies back pain or joint pain [] All other systems were reviewed and found to be within normal limits, except as documented in this note. Allergies Allergies Allergies Coded Allergies Type Severity Reaction Last Updated Verified Penicillins Allergy Intermediate 01/08/15 No Sulfa (Sulfonamide Antibiotics) Allergy Intermediate 01/08/15 No aripiprazole Allergy Intermediate 01/08/15 No duloxetine Allergy Intermediate 01/08/15 No fluoxetine Allergy Intermediate 01/08/15 No latex Allergy Intermediate 01/08/15 No fentanyl Allergy Mild HIVES 03/12/14 No Physical Exam Physical Exam Constitutional: Well developed, well nourished, no acute distress, non-toxic appearance. [] HENT: Normocephalic, atraumatic, bilateral external ears normal, oropharynx moist, no oral exudates, nose normal. [] Eyes: PERRLA, EOMI, conjunctiva normal, no discharge. [] Neck: Normal range of motion, no tenderness, supple, no stridor. [] Cardiovascular: Regular rate and rhythm, no murmur [] Lungs & Thorax: Bilateral breath sounds clear to auscultation [] Abdomen: Bowel sounds normal, soft, with right lower/adnexal tenderness. [] Skin: Warm, dry, no erythema, no rash. [] Extremities: No tenderness, no cyanosis, no clubbing, ROM intact, no edema. [] Neurologic: Alert and oriented X 3, normal motor function, normal sensory function, no focal deficits noted. [] Current Patient Data Vital Signs Vital Signs Date Time Temp Pulse Resp B/P (MAP) Pulse Ox O2 Delivery O2 Flow Rate FiO2 09/24/18 10:27 98.9 104 18 97 Room Air Lab Results Laboratory Tests Test 09/24/18 11:00 White Blood Count 7.1 x10^3/uL (4.0-11.0) Red Blood Count 4.94 x10^6/uL (3.50-5.40) Hemoglobin 14.6 g/dL (12.0-15.5) Hematocrit 41.5 % (36.0-47.0) Mean Corpuscular Volume 84 fL (79-100) Mean Corpuscular Hemoglobin 30 pg (25-35) Mean Corpuscular Hemoglobin Concent 35 g/dL (31-37) Red Cell Distribution Width 13.1 % (11.5-14.5) Platelet Count 240 x10^3/uL (140-400) Neutrophils (%) (Auto) 60 % (31-73) Lymphocytes (%) (Auto) 31 % (24-48) Monocytes (%) (Auto) 6 % (0-9) Eosinophils (%) (Auto) 2 % (0-3) Basophils (%) (Auto) 1 % (0-3) Neutrophils # (Auto) 4.3 x10^3uL (1.8-7.7) Lymphocytes # (Auto) 2.2 x10^3/uL (1.0-4.8) Monocytes # (Auto) 0.4 x10^3/uL (0.0-1.1) Eosinophils # (Auto) 0.1 x10^3/uL (0.0-0.7) Basophils # (Auto) 0.0 x10^3/uL (0.0-0.2) Sodium Level 141 mmol/L (136-145) Potassium Level 4.1 mmol/L (3.5-5.1) Chloride Level 103 mmol/L (98-107) Carbon Dioxide Level 29 mmol/L (21-32) Anion Gap 9 (6-14) Blood Urea Nitrogen 5 mg/dL (7-20) L Creatinine 1.0 mg/dL (0.6-1.0) Estimated GFR (Cockcroft-Gault) 68.7 BUN/Creatinine Ratio 5 (6-20) L Glucose Level 118 mg/dL (70-99) H Calcium Level 9.3 mg/dL (8.5-10.1) Total Bilirubin 0.2 mg/dL (0.2-1.0) Aspartate Amino Transferase (AST) 31 U/L (15-37) Alanine Aminotransferase (ALT) 74 U/L (14-59) H Alkaline Phosphatase 97 U/L (46-116) Total Protein 7.8 g/dL (6.4-8.2) Albumin 3.9 g/dL (3.4-5.0) Albumin/Globulin Ratio 1.0 (1.0-1.7) Serum Test, Qualitative Negative (NEG) EKG EKG [] Radiology/Procedures Radiology/Procedures [] Impressions: PROCEDURE: US PELVIS W/TV Examination: Ultrasound pelvis HISTORY: History of heavy vaginal bleeding COMPARISON: None available TECHNIQUE: Transabdominal, transvaginal ultrasonogram of the pelvis were performed. FINDINGS: The uterus measures 10.4 x 4.9 X 4.1 cm The right ovary measures 5.8 x 5.4 x 4.9 cm . The left ovary measures 2.6 x 2.0 x 3.3 cm. Tiny amount of fluid is seen in the cervical canal. The endometrium measures 2.2 mm in diameter. Blood flow identified in the right and left ovaries. There is a 4.8 cm cystic structure identified in the right ovary containing septation. Few follicles identified in the left ovary. IMPRESSION: 1. A 4.8 cm cystic structure is identified in the right ovary containing septation could be complex cyst or hemorrhagic cyst. Electronically signed by: Christopher Mcdonough MD (09/24/2018 1:01 PM) [id number] Course & Med Decision Making Course & Med Decision Making Pertinent Labs and Imaging studies reviewed. (See chart for details) [] Dragon Disclaimer Dragon Disclaimer This electronic medical record was generated, in whole or in part, using a voice recognition dictation system. Departure Departure: Impression: Primary Impression: Hemorrhagic cyst of right ovary Additional Impression: Menorrhagia with irregular cycle Disposition: HOME, SELF-CARE Condition: STABLE Referrals: AMRIT CARCAMO (PCP) Patient Instructions: Menorrhagia, Ovarian Cyst Scripts Medroxyprogesterone Acetate (PROVERA) 10 Mg Tablet 1 TAB PO DAILY for for menstrual bleeding, #10 TAB Prov: PAULINO WHALEN Jr. DO 09/24/18 Hydrocodone Bit/Acetaminophen (NORCO 5-325 TABLET) 1 Each Tablet 1 TAB PO PRN Q6HRS PRN for PAIN for 3 Days, #12 TAB 0 Refills Prov: PAULINO WHALEN Jr. DO 09/24/18 Problem Qualifiers PAULINO WHALEN Jr. DO Sep 24, 2018 12:19
--- NOTE | 2018-09-24 13:05 | RAD ---
Examination: Ultrasound pelvis HISTORY: History of heavy vaginal bleeding COMPARISON: None available TECHNIQUE: Transabdominal, transvaginal ultrasonogram of the pelvis were performed. FINDINGS: The uterus measures 10.4 x 4.9 X 4.1 cm The right ovary measures 5.8 x 5.4 x 4.9 cm . The left ovary measures 2.6 x 2.0 x 3.3 cm. Tiny amount of fluid is seen in the cervical canal. The endometrium measures 2.2 mm in diameter. Blood flow identified in the right and left ovaries. There is a 4.8 cm cystic structure identified in the right ovary containing septation. Few follicles identified in the left ovary. IMPRESSION: 1. A 4.8 cm cystic structure is identified in the right ovary containing septation could be complex cyst or hemorrhagic cyst. Electronically signed by: Christopher Mcdonough MD (09/24/2018 1:01 PM) [id number]
[2018-09-24] MEDS ORDERED: HYDR-3165 PO (13:11)
[2018-09-24] MEDS ORDERED: MEDR10TA PO (13:11)
[2018-09-24 13:25] VITALS: BP 109/68
== END 2018-09-24 13:25 | disposition home or self-care (01) ==
LOC: ER 10:18
DX: N83.291 Other ovarian cyst, right side (principal); N92.0 Excessive and frequent menstruation with regular cycle; F41.9 Anxiety disorder, unspecified; J45.909 Unspecified asthma, uncomplicated; F31.9 Bipolar disorder, unspecified; E78.00 Pure hypercholesterolemia, unspecified; Z98.890 Other specified postprocedural states; Z90.89 Acquired absence of other organs; F17.210 Nicotine dependence, cigarettes, uncomplicated; Z88.0 Allergy status to penicillin; Z88.2 Allergy status to sulfonamides; Z91.040 Latex allergy status; Z88.4 Allergy status to anesthetic agent; Z88.8 Allergy status to other drugs, medicaments and biological substances
CPT/HCPCS: 36415; 76830; 76856; 80053; 84703; 85025; 99284

== ENCOUNTER 2018-09-24 16:41 | Emergency (ER) | payer OTHER ==
[~2018-09-24] VITALS: Ht 152.4 cm; Wt 93.8 kg
[~2018-09-24 16:41] MED LIST changes: +MEDR10TA PO
[2018-09-24 16:42] VITALS: BP 152/96
[2018-09-24] MEDS: HYDROcodone/APAP 7.5/325MG 1 TAB TABLET PO ONE (17:40)
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
== END 2018-09-24 18:57 | disposition home or self-care (01) ==
LOC: ER 16:41
DX: S16.1XXA Strain of muscle, fascia and tendon at neck level, initial encounter (principal); M79.674 Pain in right toe(s); M79.675 Pain in left toe(s); M54.6 Pain in thoracic spine; F41.9 Anxiety disorder, unspecified; J45.909 Unspecified asthma, uncomplicated; F31.9 Bipolar disorder, unspecified; E78.00 Pure hypercholesterolemia, unspecified; F17.210 Nicotine dependence, cigarettes, uncomplicated; Z88.0 Allergy status to penicillin; Z88.2 Allergy status to sulfonamides; Z91.040 Latex allergy status; Z88.8 Allergy status to other drugs, medicaments and biological substances; V89.2XXA Person injured in unspecified motor-vehicle accident, traffic, initial encounter; Y93.89 Activity, other specified; Y92.488 Other paved roadways as the place of occurrence of the external cause; Y99.8 Other external cause status
CPT/HCPCS: 29130; 70450; 70486; 72125; 72128; 73140; 99283; 99284

== ENCOUNTER 2018-10-10 18:52 | Emergency (ER) | payer OTHER ==
[~2018-10-10] VITALS: Ht 160 cm; Wt 94.0 kg
[2018-10-10] MEDS ORDERED: ONDANSETRON PF 4 MG/2 ML VIAL. IV ONE ×2 (19:15→21:30)
[2018-10-10] MEDS ORDERED: MORPHINE SULFATE 4 MG/ML DISP.SYRIN. IV ONE (19:15)
[2018-10-10] MEDS ORDERED: KETOROLAC 30 MG/ML VIAL. IV ONE (19:30)
[2018-10-10 19:49] LABS: BACTERIA,URINE FEW /HPF (0-FEW); BILIRUBIN,URINE NEG (NEG); CLARITY,URINE HAZY; COLOR,URINE YELLOW; GLUCOSE,URINE NEG (NEG); NITRITE,URINE NEG (NEG); RBC,URINE OCC /HPF (0-2); SQUAMOUS EPITHELIAL CELL,UR MOD /LPF; UROBILINOGEN,URINE 0.2 mg/dL (0.2 mg/dL); WBC,URINE OCC /HPF (0-4)
[2018-10-10 19:53] LABS: BASO % 1 % (0-3); EOS # 0.1 x10^3/uL (0.0-0.7); EOS % 2 % (0-3); HEMATOCRIT 40.6 % (36.0-47.0); LYMPH # 2.8 x10^3/uL (1.0-4.8); LYMPH % 33 % (24-48); MEAN CORPUSCULAR HEMOGLOBIN 29 pg (25-35); MEAN CORPUSCULAR HGB CONC 35 g/dL (31-37); MEAN CORPUSCULAR VOLUME 85 fL (79-100); MONO # 0.5 x10^3/uL (0.0-1.1); MONO % 6 % (0-9); NEUT # 4.9 x10^3uL (1.8-7.7); NEUT % 59 % (31-73); PLATELET COUNT 256 x10^3/uL (140-400); RED BLOOD COUNT 4.77 x10^6/uL (3.50-5.40); RED CELL DISTRIBUTION WIDTH 12.7 % (11.5-14.5); WHITE BLOOD COUNT 8.4 x10^3/uL (4.0-11.0)
[2018-10-10 20:07] LABS: ALBUMIN 3.9 g/dL (3.4-5.0); ALBUMIN/GLOBULIN RATIO 1.1 (1.0-1.7); CALCIUM 9.4 mg/dL (8.5-10.1); CREATININE 0.9 mg/dL (0.6-1.0); GFR 77.6; POTASSIUM 3.6 mmol/L (3.5-5.1); TOTAL BILIRUBIN 0.2 mg/dL (0.2-1.0); TOTAL PROTEIN 7.5 g/dL (6.4-8.2)
--- NOTE | 2018-10-10 21:17 | PHYS DOC ---
Adult General Chief Complaint Chief Complaint abd pain HPI HPI 23 years old female presented emergency department with the right lower quadrant pain , associated with nausea she was seen and evaluated the about 3 weeks ago for Right ovarian cyst . He stated the pain is similar to right ovarian cyst pain which she had 3 weeks ago no diarrhea no fever no chills Review of Systems Review of Systems Constitutional: Denies fever or chills [] Eyes: Denies change in visual acuity, redness, or eye pain [] HENT: Denies nasal congestion or sore throat [] Respiratory: Denies cough or shortness of breath [] Cardiovascular: No additional information not addressed in HPI [] GI: Denies vomiting, bloody stools or diarrhea [] : Denies dysuria or hematuria [] Musculoskeletal: Denies back pain or joint pain [] Integument: Denies rash or skin lesions [] Neurologic: Denies headache, focal weakness or sensory changes [] Endocrine: Denies polyuria or polydipsia [] All other systems were reviewed and found to be within normal limits, except as documented in this note. Current Medications Current Medications Current Medications Medications (Trade) Dose Ordered Sig/Gama Start Time Stop Time Status Last Admin Dose Admin Ketorolac Tromethamine (Toradol 30mg Vial) 30 mg 1X ONCE 10/10/18 19:30 10/10/18 19:32 DC 10/10/18 19:30 30 MG Morphine Sulfate (Morphine 4mg Syringe) 4 mg 1X ONCE 10/10/18 19:15 10/10/18 19:32 DC 10/10/18 19:34 4 MG Ondansetron HCl (Zofran) 4 mg 1X ONCE 10/10/18 19:15 10/10/18 19:32 DC 10/10/18 19:35 4 MG Allergies Allergies Allergies Coded Allergies Type Severity Reaction Last Updated Verified Penicillins Allergy Intermediate 01/08/15 No Sulfa (Sulfonamide Antibiotics) Allergy Intermediate 01/08/15 No aripiprazole Allergy Intermediate 01/08/15 No duloxetine Allergy Intermediate 01/08/15 No fluoxetine Allergy Intermediate 01/08/15 No latex Allergy Intermediate 01/08/15 No fentanyl Allergy Mild HIVES 03/12/14 No Physical Exam Physical Exam Constitutional: Well developed, well nourished, no acute distress, non-toxic appearance. [] HENT: Normocephalic, atraumatic, bilateral external ears normal, oropharynx moist, no oral exudates, nose normal. [] Eyes: PERRLA, EOMI, conjunctiva normal, no discharge. [] Neck: Normal range of motion, no tenderness, supple, no stridor. [] Cardiovascular:Heart rate regular rhythm, no murmur [] Lungs & Thorax: Bilateral breath sounds clear to auscultation [] Abdomen: Bowel sounds normal, soft, +tenderness in the right lower quadrant no masses, no pulsatile masses. [] Skin: Warm, dry, no erythema, no rash. [] Back: No tenderness, no CVA tenderness. [] Extremities: No tenderness, no cyanosis, no clubbing, ROM intact, no edema. [] Neurologic: Alert and oriented X 3, normal motor function, normal sensory function, no focal deficits noted. [] Psychologic: Affect normal, judgement normal, mood normal. [] Current Patient Data Vital Signs Vital Signs Date Time Temp Pulse Resp B/P (MAP) Pulse Ox O2 Delivery O2 Flow Rate FiO2 10/10/18 20:32 92 18 132/83 (99) 96 Room Air 10/10/18 19:00 97.9 Lab Results Laboratory Tests Test 10/10/18 19:15 10/10/18 19:25 10/10/18 19:35 Urine Collection Type Unknown Urine Color Yellow Urine Clarity Hazy Urine pH 8.5 Urine Specific [place] 1.020 Urine Protein 100 mg/dl (NEG-TRACE) Urine Glucose (UA) Neg mg/dL (NEG) Urine Ketones (Stick) Neg mg/dL (NEG) Urine Blood Neg (NEG) Urine Nitrite Neg (NEG) Urine Bilirubin Neg (NEG) Urine Urobilinogen Dipstick 0.2 mg/dL (0.2 mg/dL) Urine Leukocyte Esterase Neg (NEG) Urine RBC Occ /HPF (0-2) Urine WBC Occ /HPF (0-4) Urine Squamous Epithelial Cells Mod /LPF Urine Bacteria Few /HPF (0-FEW) POC Urine HCG, Qualitative hcg negative (Negative) White Blood Count 8.4 x10^3/uL (4.0-11.0) Red Blood Count 4.77 x10^6/uL (3.50-5.40) Hemoglobin 14.0 g/dL (12.0-15.5) Hematocrit 40.6 % (36.0-47.0) Mean Corpuscular Volume 85 fL (79-100) Mean Corpuscular Hemoglobin 29 pg (25-35) Mean Corpuscular Hemoglobin Concent 35 g/dL (31-37) Red Cell Distribution Width 12.7 % (11.5-14.5) Platelet Count 256 x10^3/uL (140-400) Neutrophils (%) (Auto) 59 % (31-73) Lymphocytes (%) (Auto) 33 % (24-48) Monocytes (%) (Auto) 6 % (0-9) Eosinophils (%) (Auto) 2 % (0-3) Basophils (%) (Auto) 1 % (0-3) Neutrophils # (Auto) 4.9 x10^3uL (1.8-7.7) Lymphocytes # (Auto) 2.8 x10^3/uL (1.0-4.8) Monocytes # (Auto) 0.5 x10^3/uL (0.0-1.1) Eosinophils # (Auto) 0.1 x10^3/uL (0.0-0.7) Basophils # (Auto) 0.0 x10^3/uL (0.0-0.2) Sodium Level 143 mmol/L (136-145) Potassium Level 3.6 mmol/L (3.5-5.1) Chloride Level 105 mmol/L (98-107) Carbon Dioxide Level 26 mmol/L (21-32) Anion Gap 12 (6-14) Blood Urea Nitrogen 8 mg/dL (7-20) Creatinine 0.9 mg/dL (0.6-1.0) Estimated GFR (Cockcroft-Gault) 77.6 BUN/Creatinine Ratio 9 (6-20) Glucose Level 119 mg/dL (70-99) H Calcium Level 9.4 mg/dL (8.5-10.1) Total Bilirubin 0.2 mg/dL (0.2-1.0) Aspartate Amino Transferase (AST) 25 U/L (15-37) Alanine Aminotransferase (ALT) 65 U/L (14-59) H Alkaline Phosphatase 84 U/L (46-116) Total Protein 7.5 g/dL (6.4-8.2) Albumin 3.9 g/dL (3.4-5.0) Albumin/Globulin Ratio 1.1 (1.0-1.7) Lipase 138 U/L (73-393) EKG EKG [] Radiology/Procedures Radiology/Procedures Ultrasound report reviewed[] Course & Med Decision Making Course & Med Decision Making Pertinent Labs and Imaging studies reviewed. (See chart for details) [] Final Impression Final Impression [] Problems: (1) Ovarian cyst Qualifiers: Qualified Codes: N83.201 - Unspecified ovarian cyst, right side Dragon Disclaimer Dragon Disclaimer This electronic medical record was generated, in whole or in part, using a voice recognition dictation system. HAKEEM DIGGS MD Oct 10, 2018 21:17
[2018-10-10] MEDS ORDERED: HYDR-3165 PO (21:20)
[2018-10-10 21:50] VITALS: BP 132/69
--- NOTE | 2018-10-10 21:55 | RAD ---
US PELVIS W/TV Clinical Indication: sharp rlq pain, known ov cyst Comparison: Pelvic ultrasound, September 24, 2018. TECHNIQUE: Real-time ultrasound imaging of the pelvis using transabdominal and transvaginal window is performed. Findings: There is normal blood flow in the ovaries. Left ovary measures 4.5 x 4 x 3.3 cm. There is a left ovary functional cyst measuring up to 2.5 cm. There is a probable complex cyst of the left ovary that is new measuring up to 2.5 cm. The right ovary measures 5 x 2.9 x 2.9 cm. There is a right ovary anechoic cyst measuring 3.1 x 1.8 x 2 cm containing a small daughter cyst. The previously seen probably hemorrhagic right ovarian cyst is no longer identified. The uterus measures 8.8 x 6 x 4.4 cm. No focal abnormality. The endometrial stripe is normal measuring 4 mm. There is no cul-de-sac free fluid. No evidence of adnexal mass. IMPRESSION: 1. Previously seen right ovary hemorrhagic cyst is no longer identified. 2. There are bilateral functional ovarian cysts. Normal blood flow in the ovaries. 3. No pelvic free fluid. Electronically signed by: Vernon Burns MD (10/10/2018 9:51 PM) [facility]
== END 2018-10-10 21:59 | disposition home or self-care (01) ==
LOC: ER 18:52
DX: N83.201 Unspecified ovarian cyst, right side (principal); N83.202 Unspecified ovarian cyst, left side; Z88.0 Allergy status to penicillin; Z88.2 Allergy status to sulfonamides; Z91.040 Latex allergy status; Z88.8 Allergy status to other drugs, medicaments and biological substances
CPT/HCPCS: 36415; 76830; 76856; 80053; 81001; 81025; 83690; 85025; 96374; 96375; 96376; 99284; J1885; J2270; J2405

== ENCOUNTER 2018-12-12 11:05 | Emergency (ER) | payer OTHER ==
[~2018-12-12] VITALS: Ht 152.4 cm; Wt 91.8 kg
[2018-12-12] MEDS ORDERED: IV NORMAL SALINE 1,000ML 1,000 ML IV SCH (11:32)
[2018-12-12] MEDS ORDERED: ONDANSETRON PF 4 MG/2 ML VIAL. ONE (11:32)
[2018-12-12] MEDS ORDERED: ONDANSETRON PF 4 MG/2 ML VIAL. IV ONE (11:45)
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
[2018-12-12 11:58] LABS: BASO % 1 % (0-3); EOS # 0.1 x10^3/uL (0.0-0.7); EOS % 2 % (0-3); HEMATOCRIT 41.2 % (36.0-47.0); HEMOGLOBIN 14.1 g/dL (12.0-15.5); LYMPH # 1.5 x10^3/uL (1.0-4.8); LYMPH % 20 % (24-48); MEAN CORPUSCULAR HEMOGLOBIN 29 pg (25-35); MEAN CORPUSCULAR HGB CONC 34 g/dL (31-37); MEAN CORPUSCULAR VOLUME 84 fL (79-100); MONO # 0.5 x10^3/uL (0.0-1.1); MONO % 6 % (0-9); NEUT # 5.2 x10^3uL (1.8-7.7); NEUT % 71 % (31-73); PLATELET COUNT 256 x10^3/uL (140-400); RED BLOOD COUNT 4.92 x10^6/uL (3.50-5.40); RED CELL DISTRIBUTION WIDTH 12.7 % (11.5-14.5); WHITE BLOOD COUNT 7.3 x10^3/uL (4.0-11.0)
[2018-12-12 12:05] LABS: PREG TEST PT QUAL NEGATIVE (NEG)
[2018-12-12 12:09] LABS: ALBUMIN 3.7 g/dL (3.4-5.0); CALCIUM 9.2 mg/dL (8.5-10.1); CREATININE 0.9 mg/dL (0.6-1.0); GFR 77.6; POTASSIUM 4.2 mmol/L (3.5-5.1); TOTAL BILIRUBIN 0.3 mg/dL (0.2-1.0); TOTAL PROTEIN 7.5 g/dL (6.4-8.2)
[2018-12-12 12:35] LABS: BILIRUBIN,URINE NEG (NEG); CLARITY,URINE CLOUDY; COLOR,URINE YELLOW; GLUCOSE,URINE NEG (NEG); NITRITE,URINE NEG (NEG); UROBILINOGEN,URINE 0.2 mg/dL (0.2 mg/dL)
[2018-12-12 12:36] LABS: BACTERIA,URINE MOD /HPF (0-FEW); RBC,URINE RARE /HPF (0-2); SQUAMOUS EPITHELIAL CELL,UR MANY /LPF; WBC,URINE RARE /HPF (0-4)
[2018-12-12] MEDS ORDERED: NAPR-683 PO (13:01)
[2018-12-12] MEDS ORDERED: ONDA4TAB7 PO (13:01)
[2018-12-12] MEDS ORDERED: KETOROLAC 30 MG/ML VIAL. IV ONE (13:15)
[2018-12-12 13:43] VITALS: BP 161/82
== END 2018-12-12 13:43 | disposition other institution (70) ==
LOC: ER 11:05
DX: K52.9 Noninfective gastroenteritis and colitis, unspecified (principal); M54.41 Lumbago with sciatica, right side; G43.909 Migraine, unspecified, not intractable, without status migrainosus; F41.9 Anxiety disorder, unspecified; J45.909 Unspecified asthma, uncomplicated; F32.9 Major depressive disorder, single episode, unspecified; F17.210 Nicotine dependence, cigarettes, uncomplicated; Z71.6 Tobacco abuse counseling; Z88.0 Allergy status to penicillin; Z88.2 Allergy status to sulfonamides; Z91.040 Latex allergy status; Z88.8 Allergy status to other drugs, medicaments and biological substances
CPT/HCPCS: 36415; 80053; 81001; 83690; 84703; 85025; 87086; 96361; 96374; 96375; 99285; J1885; J2405; 99283-25; J7030

== ENCOUNTER 2018-12-15 01:32 | Emergency (ER) | payer OTHER ==
[~2018-12-15] VITALS: Ht 147.3 cm; Wt 97.5 kg
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
[2018-12-15] MEDS ORDERED: ORPHENADRINE CITRATE 60 MG/2 ML VIAL. IV ONE (02:30)
[2018-12-15] MEDS ORDERED: KETOROLAC 30 MG/ML VIAL. IV ONE (02:30)
[2018-12-15] MEDS ORDERED: IV RINGERS SOLUTION,LACTATED 1,000 ML IV SCH (02:30)
[2018-12-15 02:45] LABS: BASO # 0.1 x10^3/uL (0.0-0.2); BASO % 1 % (0-3); EOS # 0.2 x10^3/uL (0.0-0.7); EOS % 2 % (0-3); HEMATOCRIT 39.2 % (36.0-47.0); HEMOGLOBIN 13.8 g/dL (12.0-15.5); LYMPH # 3.3 x10^3/uL (1.0-4.8); LYMPH % 41 % (24-48); MEAN CORPUSCULAR HEMOGLOBIN 30 pg (25-35); MEAN CORPUSCULAR HGB CONC 35 g/dL (31-37); MEAN CORPUSCULAR VOLUME 85 fL (79-100); MONO # 0.5 x10^3/uL (0.0-1.1); MONO % 6 % (0-9); NEUT % 50 % (31-73); PLATELET COUNT 244 x10^3/uL (140-400); RED BLOOD COUNT 4.63 x10^6/uL (3.50-5.40)
[2018-12-15 02:50] LABS: ALK PHOS 86 U/L (46-116); ALT (SGPT) 57 U/L (14-59); ANION GAP 12 (6-14); AST (SGOT) 30 U/L (15-37); BLOOD UREA NITROGEN 7 mg/dL (7-20); CALCIUM 9.4 mg/dL (8.5-10.1); CARBON DIOXIDE 29 mmol/L (21-32); CHLORIDE 104 mmol/L (98-107); CREATININE 0.8 mg/dL (0.6-1.0); GFR 88.9; MAGNESIUM 1.5 mg/dL (1.8-2.4); POTASSIUM 3.5 mmol/L (3.5-5.1); SODIUM 145 mmol/L (136-145); TOTAL BILIRUBIN 0.3 mg/dL (0.2-1.0); TOTAL PROTEIN 7.7 g/dL (6.4-8.2)
[2018-12-15 02:51] LABS: DIRECT BILIRUBIN < 0.1 mg/dL (0.0-0.2)
[2018-12-15 02:52] LABS: GLUCOSE 131 mg/dL (70-99)
[2018-12-15] MEDS ORDERED: ORPHENADRINE CITRATE 60 MG/2 ML VIAL. ONE (02:53)
[2018-12-15] MEDS ORDERED: KETOROLAC 30 MG/ML VIAL. ONE (02:53)
--- NOTE | 2018-12-15 03:13 | RAD ---
Indication: Right groin pain, right lower activity pain TECHNIQUE: 3 views of the lumbar spine COMPARISON: None FINDINGS: The lumbar spine demonstrates loss of normal lumbar lordosis. This could be due to muscle spasm or positioning. No compression deformities. Mild space narrowing at L4-L5. SI joints within normal limits. IMPRESSION: Mild degenerative disc disease at L5-S1. Electronically signed by: Ruben Santos DO (12/15/2018 3:10 AM) [id number]
--- NOTE | 2018-12-15 03:14 | RAD ---
Indication: Right groin pain TECHNIQUE: Acute abdominal series COMPARISON: None FINDINGS: Heart is normal in size. Lungs are clear. No pneumothorax or pleural effusion. Visualized bony thorax within normal limits. No pneumoperitoneum. No abnormally dilated bowel loops. Mild diffuse colonic stool burden. No abnormal calcific densities projecting over the kidneys to suggest apparent renal stones. Visualized bones within normal limits. IMPRESSION: No acute radiographic findings. Electronically signed by: Ruben Santos DO (12/15/2018 3:11 AM) [id number]
[2018-12-15 03:20] VITALS: BP 139/76
[2018-12-15] MEDS ORDERED: CYCL-331 PO (03:20)
[2018-12-15 03:36] LABS: BARBITURATES NEG (NEG); BENZODIAZEPINES NEG (NEG); CANNABINOIDS POS (NEG); COCAINE NEG (NEG); METHADONE NEG (NEG); OPIATES NEG (NEG); PHENCYCLIDINE NEG (NEG)
[2018-12-15 03:38] LABS: AMPHETAMINE/METHAMPHETAMINE NEG (NEG)
[2018-12-15 03:45] LABS: BACTERIA,URINE 0 /HPF (0-FEW); BILIRUBIN,URINE NEG (NEG); CLARITY,URINE CLEAR; COLOR,URINE YELLOW; GLUCOSE,URINE NEG (NEG); NITRITE,URINE NEG (NEG); RBC,URINE OCC /HPF (0-2); SQUAMOUS EPITHELIAL CELL,UR MOD /LPF; UROBILINOGEN,URINE 0.2 mg/dL (0.2 mg/dL); WBC,URINE OCC /HPF (0-4)
[2018-12-15] MEDS ORDERED: MAGNESIUM HYDROXIDE 2,400 MG/30 ML ORAL.SUSP. PO ONE (03:45)
--- NOTE | 2018-12-15 06:31 | EKG ---
[address] [address] Test Date: 2018-12-15 Test Time: 02:28:27 Pat Name: ROHAN JACKSON Department: Room: Gender: F [employer] Member: KEERTHI : 1995 Requested By: XCOHITL STREETER Order Number: [id number] Reading MD: Lior Benedict MD Measurements Intervals [place] Rate: 83 P: 39 [place]: 172 QRS: 56 QRSD: 98 T: 34 QT: 370 QTc: 440 Interpretive Statements SINUS RHYTHM Electronically Signed On 12-23-2018 23:13:01 CDT by Lior Benedict MD
== END 2018-12-15 03:50 | disposition home or self-care (01) ==
LOC: ER 01:32
DX: M54.31 Sciatica, right side (principal); K59.00 Constipation, unspecified; M47.896 Other spondylosis, lumbar region; E66.01 Morbid (severe) obesity due to excess calories; F17.210 Nicotine dependence, cigarettes, uncomplicated; F12.90 Cannabis use, unspecified, uncomplicated; E11.9 Type 2 diabetes mellitus without complications; G89.29 Other chronic pain; M54.89 Other dorsalgia; E83.42 Hypomagnesemia; F41.9 Anxiety disorder, unspecified; J45.909 Unspecified asthma, uncomplicated; F32.9 Major depressive disorder, single episode, unspecified; G43.909 Migraine, unspecified, not intractable, without status migrainosus; Z90.89 Acquired absence of other organs; Z68.41 Body mass index [BMI] 40.0-44.9, adult; Z98.890 Other specified postprocedural states; Z88.0 Allergy status to penicillin; Z88.2 Allergy status to sulfonamides; Z88.8 Allergy status to other drugs, medicaments and biological substances; Z91.040 Latex allergy status
CPT/HCPCS: 36415; 72100; 74022; 80048; 80076; 80307; 81001; 83735; 85025; 85379; 85610; 85730; 93005; 96374; 96375; 99284; J1885; J2360; J7120

== ENCOUNTER → 2018-12-30 | Outpatient (CLI) | payer OTHER ==
[2018-12-15 03:20] VITALS: BP 139/76
[2018-12-30 16:15] LABS: PREG TEST PT QUAL NEGATIVE (NEG)
== END | disposition home or self-care (01) ==
LOC: LAB 14:49
PROVIDERS: ATTEND Nurse Practitioner Women's Health
DX: Z30.011 Encounter for initial prescription of contraceptive pills (principal)
CPT/HCPCS: 84703

== ENCOUNTER 2019-02-07 20:38 | Emergency (ER) | payer OTHER ==
[~2019-02-07] VITALS: Ht 149.9 cm; Wt 88.5 kg
--- NOTE | 2019-02-07 20:40 | ED.ADGEN ---
Past History Past Medical History: Anxiety, Asthma, Depression, GERD, IBS, Migraines, Sciatica, Other Past Surgical History: Appendectomy, , Tonsillectomy, Other Smoking: Cigarettes Alcohol Use: None Drug Use: None Adult General Chief Complaint Chief Complaint ".. I ve had chest pain since yesterday... when I had upper and lower after my GI scopes.." HPI HPI Patient is a 23 year old female who presents with above hx and complaints central chest pain after EGD and Colon scopic exams yesterday at [facility] by Dr. Oakes. Pt. has hx GERD, Reflux , IBS. Pt. does continue to smoke. Pt. has had several visits to ED, 45 x since 2014. Pt pain seems related to swallowing and reflux.. Pt. did have a dilation during the EGD. Review of Systems Review of Systems Constitutional: Denies fever or chills [] Eyes: Denies change in visual acuity, redness, or eye pain [] HENT: Denies nasal congestion or sore throat [] Respiratory: Denies cough or shortness of breath [] Cardiovascular: No additional information not addressed in HPI [] GI: Denies abdominal pain, nausea, vomiting, bloody stools or diarrhea [] : Denies dysuria or hematuria [] Musculoskeletal: Denies back pain or joint pain [] Integument: Denies rash or skin lesions [] Neurologic: Denies headache, focal weakness or sensory changes [] Endocrine: Denies polyuria or polydipsia [] All other systems were reviewed and found to be within normal limits, except as documented in this note. Family History Family History Non Contributory Current Medications Current Medications Current Medications Medications (Trade) Dose Ordered Sig/Gama Start Time Stop Time Status Last Admin Dose Admin Aspirin (Children'S Aspirin) 324 mg 1X ONCE 02/07/19 20:45 02/07/19 20:52 DC 02/07/19 21:19 324 MG Famotidine (Pepcid Vial) 20 mg 1X ONCE 02/07/19 20:45 02/07/19 20:52 DC 02/07/19 21:19 20 MG Lactated Ringer's 1,000 ml @ 1,000 mls/hr Q1H 02/07/19 20:41 02/07/19 21:40 DC 02/07/19 21:20 1,000 MLS/HR Magnesium Hydroxide (Milk Of Magnesia) 2,400 mg 1X ONCE 02/07/19 20:45 02/07/19 20:52 DC 02/07/19 21:19 2,400 MG Allergies Allergies Allergies Coded Allergies Type Severity Reaction Last Updated Verified Penicillins Allergy Intermediate 12/15/18 No Sulfa (Sulfonamide Antibiotics) Allergy Intermediate 12/15/18 No aripiprazole Allergy Intermediate 12/15/18 No duloxetine Allergy Intermediate 12/15/18 No fluoxetine Allergy Intermediate 12/15/18 No latex Allergy Intermediate 12/15/18 No fentanyl Allergy Mild HIVES 12/15/18 No Physical Exam Physical Exam Constitutional: Moderated acute distress, non-toxic appearance. [] HENT: Normocephalic, atraumatic, bilateral external ears normal, oropharynx moist, no oral exudates, nose normal. [] Eyes: PERRLA, EOMI, conjunctiva normal, no discharge. [] Neck: Normal range of motion, no tenderness, supple, no stridor. [] Cardiovascular:Heart rate regular rhythm, no murmur [] Lungs & Thorax: Bilateral breath sounds equal at apexes with scattered wheezes auscultation [] Abdomen: Bowel sounds normal, soft, no tenderness, no masses, no pulsatile masses. []Obese. Old scars. Declined rectal exam at this time. Skin: Warm, dry, no erythema, no rash. [] Back: No tenderness, no CVA tenderness. [] Extremities: No tenderness, no cyanosis, no clubbing, ROM intact, no edema. [] No cording. Neurologic: Alert and oriented X 3, normal motor function, normal sensory function, no focal deficits noted. [] Psychologic: Affect normal, judgement normal, mood normal. [] Current Patient Data Vital Signs Vital Signs Date Time Temp Pulse Resp B/P (MAP) Pulse Ox O2 Delivery O2 Flow Rate FiO2 02/07/19 23:04 81 18 145/96 (112) 94 Room Air 02/07/19 20:53 98.1 Lab Results Laboratory Tests Test 02/07/19 21:15 02/07/19 21:40 02/07/19 21:51 White Blood Count 8.8 x10^3/uL (4.0-11.0) Red Blood Count 4.53 x10^6/uL (3.50-5.40) Hemoglobin 13.3 g/dL (12.0-15.5) Hematocrit 37.4 % (36.0-47.0) Mean Corpuscular Volume 83 fL (79-100) Mean Corpuscular Hemoglobin 29 pg (25-35) Mean Corpuscular Hemoglobin Concent 35 g/dL (31-37) Red Cell Distribution Width 12.3 % (11.5-14.5) Platelet Count 266 x10^3/uL (140-400) Neutrophils (%) (Auto) 52 % (31-73) Lymphocytes (%) (Auto) 41 % (24-48) Monocytes (%) (Auto) 6 % (0-9) Eosinophils (%) (Auto) 1 % (0-3) Basophils (%) (Auto) 0 % (0-3) Neutrophils # (Auto) 4.5 x10^3uL (1.8-7.7) Lymphocytes # (Auto) 3.6 x10^3/uL (1.0-4.8) Monocytes # (Auto) 0.5 x10^3/uL (0.0-1.1) Eosinophils # (Auto) 0.1 x10^3/uL (0.0-0.7) Basophils # (Auto) 0.0 x10^3/uL (0.0-0.2) Prothrombin Time 9.8 SEC (9.4-11.4) Prothrombin Time INR 1.0 (0.9-1.1) PTT 26 SEC (23-33) D-Dimer (Deja) < 0.19 mg/L (0.00-0.50) Maternal Serum HCG Beta Subunit 1 mIU/mL (0-6) Sodium Level 141 mmol/L (136-145) Potassium Level 3.6 mmol/L (3.5-5.1) Chloride Level 103 mmol/L (98-107) Carbon Dioxide Level 28 mmol/L (21-32) Anion Gap 10 (6-14) Blood Urea Nitrogen 8 mg/dL (7-20) Creatinine 0.9 mg/dL (0.6-1.0) Estimated GFR (Cockcroft-Gault) 77.6 Glucose Level 90 mg/dL (70-99) Calcium Level 9.4 mg/dL (8.5-10.1) Magnesium Level 1.8 mg/dL (1.8-2.4) Total Bilirubin 0.2 mg/dL (0.2-1.0) Direct Bilirubin < 0.1 mg/dL (0.0-0.2) Aspartate Amino Transferase (AST) 13 U/L (15-37) L Alanine Aminotransferase (ALT) 26 U/L (14-59) Alkaline Phosphatase 64 U/L (46-116) Creatine Kinase 95 U/L (26-192) Troponin I Quantitative < 0.017 ng/mL (0-0.055) MT-Wcr-[id number]-Type Natriuretic Peptide 33 pg/mL (0-124) Total Protein 7.4 g/dL (6.4-8.2) Albumin 3.6 g/dL (3.4-5.0) Lipase 93 U/L (73-393) Urine Collection Type Unknown Urine Color Straw Urine Clarity Clear Urine pH 6.5 Urine Specific [place] <=1.005 Urine Protein Neg (NEG-TRACE) Urine Glucose (UA) Neg mg/dL (NEG) Urine Ketones (Stick) Neg mg/dL (NEG) Urine Blood Mod (NEG) Urine Nitrite Neg (NEG) Urine Bilirubin Neg (NEG) Urine Urobilinogen Dipstick 0.2 mg/dL (0.2 mg/dL) Urine Leukocyte Esterase Neg (NEG) Urine RBC 3-5 /HPF (0-2) Urine WBC 0 /HPF (0-4) Urine Squamous Epithelial Cells Occ /LPF Urine Bacteria Few /HPF (0-FEW) Urine Mucus Slight /LPF Urine Opiates Screen Neg (NEG) Urine Methadone Screen Neg (NEG) Urine Barbiturates Neg (NEG) Urine Phencyclidine Screen Neg (NEG) Urine Amphetamine/Methamphetamine Neg (NEG) Urine Benzodiazepines Screen Neg (NEG) Urine Cocaine Screen Neg (NEG) Urine Cannabinoids Screen Neg (NEG) Urine Ethyl Alcohol Neg (NEG) POC Urine HCG, Qualitative hcg positive (Negative) EKG EKG My interpretation EKG shows a sinus rhythm at 84 bpm. Some wavering baseline. No findings acute STEMI of contralateral changes[] Radiology/Procedures Radiology/Procedures My interpretation acute abdomen shows no acute cardiopulmonary findings. . No free air under the diaphragm.[] Non specific bowel gas pattern. Course & Med Decision Making Course & Med Decision Making Pertinent Labs and Imaging studies reviewed. (See chart for details) Pt. demanding discharge. Pt. declined further trop. or EKG. Pt. to return to clear fluid diet. Pt. take tylenol for pain Return if any concerns or if she elects to have EKG and Trop;. Pt. to stop smoking. Pt.symptom s had resolved at time of discharge. [] Final Impression Final Impression 1. Chest Pain 2. Tobacco Use 3. Esophageal Stricture[]Hx. 4. Suspect GERD Dragon Disclaimer Dragon Disclaimer This electronic medical record was generated, in whole or in part, using a voice recognition dictation system. Dragon Disclaimer This chart was dictated in whole or in part using Voice Recognition software in a busy, high-work load, and often noisy Emergency Department environment. It may contain unintended and wholly unrecognized errors or omissions. Discharge Summary Visit Information Final Diagnosis Problems Medical Problems: (1) Chest wall pain Status: Acute (2) Reflux esophagitis Status: Acute (3) Reflux gastritis Status: Acute Brief Hospital Course Allergies Allergies Coded Allergies Type Severity Reaction Last Updated Verified Penicillins Allergy Intermediate 12/15/18 No Sulfa (Sulfonamide Antibiotics) Allergy Intermediate 12/15/18 No aripiprazole Allergy Intermediate 12/15/18 No duloxetine Allergy Intermediate 12/15/18 No fluoxetine Allergy Intermediate 12/15/18 No latex Allergy Intermediate 12/15/18 No fentanyl Allergy Mild HIVES 12/15/18 No Vital Signs Vital Signs Date Time Temp Pulse Resp B/P (MAP) Pulse Ox O2 Delivery O2 Flow Rate FiO2 02/07/19 23:04 81 18 145/96 (112) 94 Room Air 02/07/19 20:53 98.1 Lab Results Laboratory Tests Test 02/07/19 21:15 02/07/19 21:40 02/07/19 21:51 White Blood Count 8.8 x10^3/uL (4.0-11.0) Red Blood Count 4.53 x10^6/uL (3.50-5.40) Hemoglobin 13.3 g/dL (12.0-15.5) Hematocrit 37.4 % (36.0-47.0) Mean Corpuscular Volume 83 fL (79-100) Mean Corpuscular Hemoglobin 29 pg (25-35) Mean Corpuscular Hemoglobin Concent 35 g/dL (31-37) Red Cell Distribution Width 12.3 % (11.5-14.5) Platelet Count 266 x10^3/uL (140-400) Neutrophils (%) (Auto) 52 % (31-73) Lymphocytes (%) (Auto) 41 % (24-48) Monocytes (%) (Auto) 6 % (0-9) Eosinophils (%) (Auto) 1 % (0-3) Basophils (%) (Auto) 0 % (0-3) Neutrophils # (Auto) 4.5 x10^3uL (1.8-7.7) Lymphocytes # (Auto) 3.6 x10^3/uL (1.0-4.8) Monocytes # (Auto) 0.5 x10^3/uL (0.0-1.1) Eosinophils # (Auto) 0.1 x10^3/uL (0.0-0.7) Basophils # (Auto) 0.0 x10^3/uL (0.0-0.2) Prothrombin Time 9.8 SEC (9.4-11.4) Prothromb Time International Ratio 1.0 (0.9-1.1) Activated Partial Thromboplast Time 26 SEC (23-33) D-Dimer (Deja) < 0.19 mg/L (0.00-0.50) Maternal Serum HCG Beta Subunit 1 mIU/mL (0-6) Sodium Level 141 mmol/L (136-145) Potassium Level 3.6 mmol/L (3.5-5.1) Chloride Level 103 mmol/L (98-107) Carbon Dioxide Level 28 mmol/L (21-32) Anion Gap 10 (6-14) Blood Urea Nitrogen 8 mg/dL (7-20) Creatinine 0.9 mg/dL (0.6-1.0) Estimated GFR (Cockcroft-Gault) 77.6 Glucose Level 90 mg/dL (70-99) Calcium Level 9.4 mg/dL (8.5-10.1) Magnesium Level 1.8 mg/dL (1.8-2.4) Total Bilirubin 0.2 mg/dL (0.2-1.0) Direct Bilirubin < 0.1 mg/dL (0.0-0.2) Aspartate Amino Transf (AST/SGOT) 13 U/L (15-37) Alanine Aminotransferase (ALT/SGPT) 26 U/L (14-59) Alkaline Phosphatase 64 U/L (46-116) Creatine Kinase 95 U/L (26-192) Troponin I Quantitative < 0.017 ng/mL (0-0.055) GK-Yxa-H-Type Natriuretic Peptide 33 pg/mL (0-124) Total Protein 7.4 g/dL (6.4-8.2) Albumin 3.6 g/dL (3.4-5.0) Lipase 93 U/L (73-393) Urine Collection Type Unknown Urine Color Straw Urine Clarity Clear Urine pH 6.5 Urine Specific [place] <=1.005 Urine Protein Neg (NEG-TRACE) Urine Glucose (UA) Neg mg/dL (NEG) Urine Ketones (Stick) Neg mg/dL (NEG) Urine Blood Mod (NEG) Urine Nitrite Neg (NEG) Urine Bilirubin Neg (NEG) Urine Urobilinogen Dipstick 0.2 mg/dL (0.2 mg/dL) Urine Leukocyte Esterase Neg (NEG) Urine RBC 3-5 /HPF (0-2) Urine WBC 0 /HPF (0-4) Urine Squamous Epithelial Cells Occ /LPF Urine Bacteria Few /HPF (0-FEW) Urine Mucus Slight /LPF Urine Opiates Screen Neg (NEG) Urine Methadone Screen Neg (NEG) Urine Barbiturates Neg (NEG) Urine Phencyclidine Screen Neg (NEG) Urine Amphetamine/Methamphetamine Neg (NEG) Urine Benzodiazepines Screen Neg (NEG) Urine Cocaine Screen Neg (NEG) Urine Cannabinoids Screen Neg (NEG) Urine Ethyl Alcohol Neg (NEG) Bedside Urine HCG, Qualitative hcg positive (Negative) Brief Hospital Course Ms. Maxwell is a 23 old female who presented with chest pain since EGD, dilation of Esophagus and colon scope yesterday. Discharge Information Condition at Discharge: Improved, Stable Disposition/Orders: D/C to Home Dischare Medications Current Medications Aspirin (Children'S Aspirin) 324 mg 1X ONCE PO Last administered on 02/07/19at 21:19; Admin Dose 324 MG; Start 02/07/19 at 20:45; Stop 02/07/19 at 20:52; Status DC Lactated Ringer's 1,000 ml @ 1,000 mls/hr Q1H IV Last administered on 02/07/19at 21:20; Admin Dose 1,000 MLS/HR; Start 02/07/19 at 20:41; Stop 02/07/19 at 21:40; Status DC Famotidine (Pepcid Vial) 20 mg 1X ONCE IVP Last administered on 02/07/19at 21:19; Admin Dose 20 MG; Start 02/07/19 at 20:45; Stop 02/07/19 at 20:52; Status DC Magnesium Hydroxide (Milk Of Magnesia) 2,400 mg 1X ONCE PO Last administered on 02/07/19at 21:19; Admin Dose 2,400 MG; Start 02/07/19 at 20:45; Stop 02/07/19 at 20:52; Status DC Active Scripts Active Cyclobenzaprine Hcl 10 Mg Tablet 10 Mg PO TIDPC Zofran Odt (Ondansetron) 4 Mg Tab.rapdis 1 Tab SL Q8HRS Naprosyn (Naproxen) 500 Mg Tablet 1 Tab PO BID XOCHITL STREETER MD February 07, 2019 20:40
[2019-02-07] MEDS ORDERED: IV RINGERS SOLUTION,LACTATED 1,000 ML IV SCH (20:41)
[2019-02-07] MEDS ORDERED: FAMOTIDINE 20 MG/2 ML VIAL IVP ONE (20:45)
[2019-02-07] MEDS ORDERED: ASPIRIN 81 MG TAB.CHEW PO ONE (20:45)
[2019-02-07] MEDS ORDERED: MAGNESIUM HYDROXIDE 2,400 MG/30 ML ORAL.SUSP. PO ONE (20:45)
[2019-02-07 21:34] LABS: BASO % 0 % (0-3); EOS # 0.1 x10^3/uL (0.0-0.7); EOS % 1 % (0-3); HEMATOCRIT 37.4 % (36.0-47.0); HEMOGLOBIN 13.3 g/dL (12.0-15.5); LYMPH # 3.6 x10^3/uL (1.0-4.8); LYMPH % 41 % (24-48); MEAN CORPUSCULAR HEMOGLOBIN 29 pg (25-35); MEAN CORPUSCULAR HGB CONC 35 g/dL (31-37); MEAN CORPUSCULAR VOLUME 83 fL (79-100); MONO # 0.5 x10^3/uL (0.0-1.1); MONO % 6 % (0-9); NEUT # 4.5 x10^3uL (1.8-7.7); NEUT % 52 % (31-73); PLATELET COUNT 266 x10^3/uL (140-400); RED BLOOD COUNT 4.53 x10^6/uL (3.50-5.40); RED CELL DISTRIBUTION WIDTH 12.3 % (11.5-14.5); WHITE BLOOD COUNT 8.8 x10^3/uL (4.0-11.0)
[2019-02-07 21:54] LABS: ALBUMIN 3.6 g/dL (3.4-5.0); ALK PHOS 64 U/L (46-116); ALT (SGPT) 26 U/L (14-59); ANION GAP 10 (6-14); AST (SGOT) 13 U/L (15-37); BLOOD UREA NITROGEN 8 mg/dL (7-20); CALCIUM 9.4 mg/dL (8.5-10.1); CARBON DIOXIDE 28 mmol/L (21-32); CHLORIDE 103 mmol/L (98-107); CREATININE 0.9 mg/dL (0.6-1.0); GFR 77.6; GLUCOSE 90 mg/dL (70-99); LIPASE 93 U/L (73-393); MAGNESIUM 1.8 mg/dL (1.8-2.4); POTASSIUM 3.6 mmol/L (3.5-5.1); SODIUM 141 mmol/L (136-145); TOTAL BILIRUBIN 0.2 mg/dL (0.2-1.0); TOTAL PROTEIN 7.4 g/dL (6.4-8.2)
[2019-02-07 21:56] LABS: DIRECT BILIRUBIN < 0.1 mg/dL (0.0-0.2)
[2019-02-07 22:05] LABS: BARBITURATES NEG (NEG); BENZODIAZEPINES NEG (NEG); CANNABINOIDS NEG (NEG); COCAINE NEG (NEG); METHADONE NEG (NEG); OPIATES NEG (NEG); PHENCYCLIDINE NEG (NEG)
[2019-02-07 22:06] LABS: AMPHETAMINE/METHAMPHETAMINE NEG (NEG)
[2019-02-07 22:08] LABS: BILIRUBIN,URINE NEG (NEG); CLARITY,URINE CLEAR; COLOR,URINE STRAW; GLUCOSE,URINE NEG (NEG)
[2019-02-07 22:09] LABS: BACTERIA,URINE FEW /HPF (0-FEW); NITRITE,URINE NEG (NEG); SQUAMOUS EPITHELIAL CELL,UR OCC /LPF; UROBILINOGEN,URINE 0.2 mg/dL (0.2 mg/dL); WBC,URINE 0 /HPF (0-4)
[2019-02-07 23:04] VITALS: BP 145/96
--- NOTE | 2019-02-08 07:35 | RAD ---
ABDOMEN SUPINE UPRIGHT, CHEST PA LATERAL Clinical indications: Chest pain after colonoscopy and upper endoscopy. Esophageal dilatation yesterday. COMPARISON: December 15, 2018. FINDINGS: No obstructive bowel pattern is evident. There is mild fecal retention within the right side of the colon. No free peritoneal air or air-fluid levels are seen. Osseous structures are intact. Chest x-ray: No acute lung infiltrate or pleural effusion or pulmonary edema or lung mass or pneumothorax is seen. The heart size, pulmonary vasculature, mediastinum and both eli are unremarkable. Impression: No acute radiographic abnormality is seen. Electronically signed by: Pravin Powers MD (02/08/2019 7:32 AM) [facility]
--- NOTE | 2019-02-09 06:43 | EKG ---
[address] [address] Test Date: 2019-02-07 Test Time: 21:11:52 Pat Name: ROHAN JACKSON Department: Room: Gender: F [employer]: : 1995 Requested By: XOCHITL STREETER Order Number: [id number] Reading MD: Elias Duncan Measurements Intervals [place] Rate: 84 P: 31 DE: 166 QRS: 58 QRSD: 94 T: 56 QT: 372 QTc: 443 Interpretive Statements SINUS RHYTHM NONSPECIFIC ST-T WAVE CHANGES. Electronically Signed On 02-11-2019 15:54:59 CDT by Elias Duncan
== END 2019-02-07 23:50 | disposition home or self-care (01) ==
LOC: ER 20:38
DX: R07.89 Other chest pain (principal); K22.2 Esophageal obstruction; K21.0 Gastro-esophageal reflux disease with esophagitis; K29.60 Other gastritis without bleeding; J45.909 Unspecified asthma, uncomplicated; F41.9 Anxiety disorder, unspecified; F32.9 Major depressive disorder, single episode, unspecified; K21.9 Gastro-esophageal reflux disease without esophagitis; K58.9 Irritable bowel syndrome, unspecified; G43.909 Migraine, unspecified, not intractable, without status migrainosus; F17.210 Nicotine dependence, cigarettes, uncomplicated; Z88.0 Allergy status to penicillin; Z88.2 Allergy status to sulfonamides; Z88.8 Allergy status to other drugs, medicaments and biological substances; Z91.040 Latex allergy status
CPT/HCPCS: 36415; 71046; 74021; 80048; 80076; 80307; 81001; 81025; 82550; 83690; 83735; 83880; 84443; 84484; 84702; 85025; 85379; 85610; 85730; 93005; 96361; 96374; 99285; J3490; J7120

== ENCOUNTER 2019-02-25 23:55 | Emergency (ER) | payer OTHER ==
[~2019-02-25] VITALS: Ht 147.3 cm; Wt 86.6 kg
--- NOTE | 2019-02-26 00:21 | ED.ADGEN ---
Past History Past Medical History: Anxiety, Asthma, Depression, GERD, High Cholesterol, IBS, Migraines, Sciatica, Other Past Surgical History: Appendectomy, , Tonsillectomy Smoking: Cigarettes Alcohol Use: None Drug Use: None Adult General Chief Complaint Chief Complaint ".. I am having chest pain again.. and anxiety.. " HPI HPI Patient is a 23 year old female who presents with above hx and complaints of anxiety with chest pain. Patient localizes her chest pain on left sided chest. Pain is nonradiating. Nothing makes the pain better. " Life" makes pain worse. Has been somewhat persistent today. Patient rates the pain as severe. Patient has had multiple workups for chest pain in the past. Patient has had 16 ER visits since October 2017, some for chest pain in various pain complaints. Patient states she has an anxiety disorder and currently taking benzodiazepines. Patient does continue to smoke. Patient denies any trauma. Patient states she is under increased family stress essentially has with significant other. No recent travel. No specific ill contacts. Patient has past medical history of anxiety disorder, at home, depression, GERD, elevated cholesterol, morbid obesity, asthma,IBS, chronic pain. Patient currently following with [facility] for primary care Review of Systems Review of Systems Constitutional: Denies fever or chills [] Eyes: Denies change in visual acuity, redness, or eye pain [] HENT: Denies nasal congestion or sore throat [] Respiratory: Denies cough or shortness of breath [] Cardiovascular: No additional information not addressed in HPI [] GI: Denies abdominal pain, nausea, vomiting, bloody stools or diarrhea [] : Denies dysuria or hematuria [] Musculoskeletal: Denies back pain or joint pain [] Integument: Denies rash or skin lesions [] Neurologic: Denies headache, focal weakness or sensory changes [] Endocrine: Denies polyuria or polydipsia [] All other systems were reviewed and found to be within normal limits, except as documented in this note. Family History Family History Noncontributory Current Medications Current Medications Current Medications Medications (Trade) Dose Ordered Sig/Gama Start Time Stop Time Status Last Admin Dose Admin Aspirin (Children'S Aspirin) 324 mg 1X ONCE 02/26/19 01:00 02/26/19 01:01 DC 02/26/19 01:53 324 MG Ketorolac Tromethamine (Toradol 30mg Vial) 30 mg 1X ONCE 02/26/19 02:00 02/26/19 02:01 DC 02/26/19 01:53 30 MG Lactated Ringer's 1,000 ml @ 1,000 mls/hr Q1H 02/26/19 01:00 02/26/19 01:59 DC 02/26/19 01:54 1,000 MLS/HR Lorazepam (Ativan) 1 mg 1X ONCE 02/26/19 02:00 02/26/19 02:01 DC 02/26/19 01:54 1 MG See nursing for home meds Allergies Allergies Allergies Coded Allergies Type Severity Reaction Last Updated Verified Penicillins Allergy Intermediate 12/15/18 No Sulfa (Sulfonamide Antibiotics) Allergy Intermediate 12/15/18 No aripiprazole Allergy Intermediate 12/15/18 No duloxetine Allergy Intermediate 12/15/18 No fluoxetine Allergy Intermediate 12/15/18 No latex Allergy Intermediate 12/15/18 No fentanyl Allergy Mild HIVES 12/15/18 No Physical Exam Physical Exam Constitutional: Moderately acute distress, non-toxic appearance. [] HENT: Normocephalic, atraumatic, bilateral external ears normal, oropharynx moist, no oral exudates, nose normal. Poor dentition Eyes: PERRLA, EOMI, conjunctiva normal, no discharge. Glasses Neck: Normal range of motion, no tenderness, supple, no stridor. [] Cardiovascular:Heart rate regular rhythm, no murmur [] Lungs & Thorax: Bilateral breath sounds equal at apex with scattered wheezes throughout on auscultation [] Abdomen: Bowel sounds normal, soft, no tenderness, no masses, no pulsatile masses. Obese. Old surgical scar. Skin: Warm, dry, no erythema, no rash. [] Back: No tenderness, no CVA tenderness. [] Extremities: No tenderness, no cyanosis, no clubbing, ROM intact, no edema. [] No cording appreciated Neurologic: Alert and oriented X 3, normal motor function, normal sensory function, no focal deficits noted. [] Psychologic: Affect anxious, judgement normal, mood normal. [] Current Patient Data Vital Signs Vital Signs Date Time Temp Pulse Resp B/P (MAP) Pulse Ox O2 Delivery O2 Flow Rate FiO2 02/25/19 23:55 20 Room Air Lab Results Laboratory Tests Test 02/26/19 00:01 02/26/19 00:20 02/26/19 00:31 White Blood Count 9.8 x10^3/uL (4.0-11.0) Red Blood Count 5.00 x10^6/uL (3.50-5.40) Hemoglobin 14.8 g/dL (12.0-15.5) Hematocrit 42.1 % (36.0-47.0) Mean Corpuscular Volume 84 fL (79-100) Mean Corpuscular Hemoglobin 30 pg (25-35) Mean Corpuscular Hemoglobin Concent 35 g/dL (31-37) Red Cell Distribution Width 12.9 % (11.5-14.5) Platelet Count 233 x10^3/uL (140-400) Neutrophils (%) (Auto) 55 % (31-73) Lymphocytes (%) (Auto) 38 % (24-48) Monocytes (%) (Auto) 6 % (0-9) Eosinophils (%) (Auto) 1 % (0-3) Basophils (%) (Auto) 0 % (0-3) Neutrophils # (Auto) 5.4 x10^3uL (1.8-7.7) Lymphocytes # (Auto) 3.7 x10^3/uL (1.0-4.8) Monocytes # (Auto) 0.5 x10^3/uL (0.0-1.1) Eosinophils # (Auto) 0.1 x10^3/uL (0.0-0.7) Basophils # (Auto) 0.0 x10^3/uL (0.0-0.2) Prothrombin Time < 9.3 SEC (9.4-11.4) L Prothrombin Time INR 0.9 (0.9-1.1) PTT 27 SEC (23-33) D-Dimer (Deja) < 0.19 mg/L (0.00-0.50) Sodium Level 140 mmol/L (136-145) Potassium Level 3.8 mmol/L (3.5-5.1) Chloride Level 103 mmol/L (98-107) Carbon Dioxide Level 29 mmol/L (21-32) Anion Gap 8 (6-14) Blood Urea Nitrogen 8 mg/dL (7-20) Creatinine 0.8 mg/dL (0.6-1.0) Estimated GFR (Cockcroft-Gault) 88.9 Glucose Level 124 mg/dL (70-99) H Calcium Level 9.2 mg/dL (8.5-10.1) Magnesium Level 1.8 mg/dL (1.8-2.4) Total Bilirubin 0.2 mg/dL (0.2-1.0) Direct Bilirubin < 0.1 mg/dL (0.0-0.2) Aspartate Amino Transferase (AST) 18 U/L (15-37) Alanine Aminotransferase (ALT) 39 U/L (14-59) Alkaline Phosphatase 72 U/L (46-116) Creatine Kinase 87 U/L (26-192) Troponin I Quantitative < 0.017 ng/mL (0-0.055) Total Protein 7.2 g/dL (6.4-8.2) Albumin 3.7 g/dL (3.4-5.0) Lipase 154 U/L (73-393) Urine Collection Type Unknown Urine Color Yellow Urine Clarity Clear Urine pH 7.0 Urine Specific Hankins 1.010 Urine Protein 30 mg/dl (NEG-TRACE) Urine Glucose (UA) Neg mg/dL (NEG) Urine Ketones (Stick) Neg mg/dL (NEG) Urine Blood Neg (NEG) Urine Nitrite Neg (NEG) Urine Bilirubin Neg (NEG) Urine Urobilinogen Dipstick 0.2 mg/dL (0.2 mg/dL) Urine Leukocyte Esterase Trace (NEG) Urine RBC 0 /HPF (0-2) Urine WBC Occ /HPF (0-4) Urine Squamous Epithelial Cells Occ /LPF Urine Bacteria 0 /HPF (0-FEW) Urine Opiates Screen Neg (NEG) Urine Methadone Screen Neg (NEG) Urine Barbiturates Neg (NEG) Urine Phencyclidine Screen Neg (NEG) Urine Amphetamine/Methamphetamine Neg (NEG) Urine Benzodiazepines Screen Neg (NEG) Urine Cocaine Screen Neg (NEG) Urine Cannabinoids Screen Neg (NEG) Urine Ethyl Alcohol Neg (NEG) POC Urine HCG, Qualitative hcg negative (Negative) EKG EKG My interpretation of EKG shows sinus 97, No acute findings of STEMI with contralateral changes. [] Radiology/Procedures Radiology/Procedures Interpretation chest x-ray shows no acute cardio pulmonary findings. No acute interval change[] Course & Med Decision Making Course & Med Decision Making Pertinent Labs and Imaging studies reviewed. (See chart for details) Patient is to stop smoking. Patient take a daily aspirin. Patient follow-up primary care. Patient return if any concerns. Patient's take her anxiety meds as directed. [] Final Impression Final Impression 1. Chest Pain 2. Anxiety Disorder 3. Tobacco Abuse[] Dragon Disclaimer Dragon Disclaimer This electronic medical record was generated, in whole or in part, using a voice recognition dictation system. Discharge Summary Visit Information Final Diagnosis Problems Medical Problems: (1) Anxiety Status: Acute (2) Chest pain Status: Acute Brief Hospital Course Allergies Allergies Coded Allergies Type Severity Reaction Last Updated Verified Penicillins Allergy Intermediate 12/15/18 No Sulfa (Sulfonamide Antibiotics) Allergy Intermediate 12/15/18 No aripiprazole Allergy Intermediate 12/15/18 No duloxetine Allergy Intermediate 12/15/18 No fluoxetine Allergy Intermediate 12/15/18 No latex Allergy Intermediate 12/15/18 No fentanyl Allergy Mild HIVES 12/15/18 No Vital Signs Vital Signs Date Time Temp Pulse Resp B/P (MAP) Pulse Ox O2 Delivery O2 Flow Rate FiO2 02/25/19 23:55 20 Room Air Lab Results Laboratory Tests Test 02/26/19 00:01 02/26/19 00:20 02/26/19 00:31 White Blood Count 9.8 x10^3/uL (4.0-11.0) Red Blood Count 5.00 x10^6/uL (3.50-5.40) Hemoglobin 14.8 g/dL (12.0-15.5) Hematocrit 42.1 % (36.0-47.0) Mean Corpuscular Volume 84 fL (79-100) Mean Corpuscular Hemoglobin 30 pg (25-35) Mean Corpuscular Hemoglobin Concent 35 g/dL (31-37) Red Cell Distribution Width 12.9 % (11.5-14.5) Platelet Count 233 x10^3/uL (140-400) Neutrophils (%) (Auto) 55 % (31-73) Lymphocytes (%) (Auto) 38 % (24-48) Monocytes (%) (Auto) 6 % (0-9) Eosinophils (%) (Auto) 1 % (0-3) Basophils (%) (Auto) 0 % (0-3) Neutrophils # (Auto) 5.4 x10^3uL (1.8-7.7) Lymphocytes # (Auto) 3.7 x10^3/uL (1.0-4.8) Monocytes # (Auto) 0.5 x10^3/uL (0.0-1.1) Eosinophils # (Auto) 0.1 x10^3/uL (0.0-0.7) Basophils # (Auto) 0.0 x10^3/uL (0.0-0.2) Prothrombin Time < 9.3 SEC (9.4-11.4) Prothromb Time International Ratio 0.9 (0.9-1.1) Activated Partial Thromboplast Time 27 SEC (23-33) D-Dimer (Deja) < 0.19 mg/L (0.00-0.50) Sodium Level 140 mmol/L (136-145) Potassium Level 3.8 mmol/L (3.5-5.1) Chloride Level 103 mmol/L (98-107) Carbon Dioxide Level 29 mmol/L (21-32) Anion Gap 8 (6-14) Blood Urea Nitrogen 8 mg/dL (7-20) Creatinine 0.8 mg/dL (0.6-1.0) Estimated GFR (Cockcroft-Gault) 88.9 Glucose Level 124 mg/dL (70-99) Calcium Level 9.2 mg/dL (8.5-10.1) Magnesium Level 1.8 mg/dL (1.8-2.4) Total Bilirubin 0.2 mg/dL (0.2-1.0) Direct Bilirubin < 0.1 mg/dL (0.0-0.2) Aspartate Amino Transf (AST/SGOT) 18 U/L (15-37) Alanine Aminotransferase (ALT/SGPT) 39 U/L (14-59) Alkaline Phosphatase 72 U/L (46-116) Creatine Kinase 87 U/L (26-192) Troponin I Quantitative < 0.017 ng/mL (0-0.055) Total Protein 7.2 g/dL (6.4-8.2) Albumin 3.7 g/dL (3.4-5.0) Lipase 154 U/L (73-393) Urine Collection Type Unknown Urine Color Yellow Urine Clarity Clear Urine pH 7.0 Urine Specific Hankins 1.010 Urine Protein 30 mg/dl (NEG-TRACE) Urine Glucose (UA) Neg mg/dL (NEG) Urine Ketones (Stick) Neg mg/dL (NEG) Urine Blood Neg (NEG) Urine Nitrite Neg (NEG) Urine Bilirubin Neg (NEG) Urine Urobilinogen Dipstick 0.2 mg/dL (0.2 mg/dL) Urine Leukocyte Esterase Trace (NEG) Urine RBC 0 /HPF (0-2) Urine WBC Occ /HPF (0-4) Urine Squamous Epithelial Cells Occ /LPF Urine Bacteria 0 /HPF (0-FEW) Urine Opiates Screen Neg (NEG) Urine Methadone Screen Neg (NEG) Urine Barbiturates Neg (NEG) Urine Phencyclidine Screen Neg (NEG) Urine Amphetamine/Methamphetamine Neg (NEG) Urine Benzodiazepines Screen Neg (NEG) Urine Cocaine Screen Neg (NEG) Urine Cannabinoids Screen Neg (NEG) Urine Ethyl Alcohol Neg (NEG) Bedside Urine HCG, Qualitative hcg negative (Negative) Brief Hospital Course Ms. Maxwell is a 23 old female who presented with complaints of chest pain and anxiety. Discharge Information Condition at Discharge: Improved, Stable Disposition/Orders: D/C to Home Dischare Medications Current Medications Aspirin (Children'S Aspirin) 324 mg 1X ONCE PO Last administered on 02/26/19at 01:53; Admin Dose 324 MG; Start 02/26/19 at 01:00; Stop 02/26/19 at 01:01; Status DC Lactated Ringer's 1,000 ml @ 1,000 mls/hr Q1H IV Last administered on 02/26/19at 01:54; Admin Dose 1,000 MLS/HR; Start 02/26/19 at 01:00; Stop 02/26/19 at 01:59; Status DC Ketorolac Tromethamine (Toradol 30mg Vial) 30 mg 1X ONCE IV Last administered on 02/26/19at 01:53; Admin Dose 30 MG; Start 02/26/19 at 02:00; Stop 02/26/19 at 02:01; Status DC Lorazepam (Ativan) 1 mg 1X ONCE PO Last administered on 02/26/19at 01:54; Admin Dose 1 MG; Start 02/26/19 at 02:00; Stop 02/26/19 at 02:01; Status DC Active Scripts Active Cyclobenzaprine Hcl 10 Mg Tablet 10 Mg PO TIDPC Zofran Odt (Ondansetron) 4 Mg Tab.rapdis 1 Tab SL Q8HRS Naprosyn (Naproxen) 500 Mg Tablet 1 Tab PO BID Dragon Disclaimer This chart was dictated in whole or in part using Voice Recognition software in a busy, high-work load, and often noisy Emergency Department environment. It may contain unintended and wholly unrecognized errors or omissions. XOCHITL STREETER MD February 26, 2019 00:21
[2019-02-26 00:58] LABS: BASO % 0 % (0-3); EOS # 0.1 x10^3/uL (0.0-0.7); EOS % 1 % (0-3); HEMATOCRIT 42.1 % (36.0-47.0); HEMOGLOBIN 14.8 g/dL (12.0-15.5); LYMPH # 3.7 x10^3/uL (1.0-4.8); LYMPH % 38 % (24-48); MEAN CORPUSCULAR HEMOGLOBIN 30 pg (25-35); MEAN CORPUSCULAR HGB CONC 35 g/dL (31-37); MEAN CORPUSCULAR VOLUME 84 fL (79-100); MONO # 0.5 x10^3/uL (0.0-1.1); MONO % 6 % (0-9); NEUT # 5.4 x10^3uL (1.8-7.7); NEUT % 55 % (31-73); PLATELET COUNT 233 x10^3/uL (140-400); RED CELL DISTRIBUTION WIDTH 12.9 % (11.5-14.5); WHITE BLOOD COUNT 9.8 x10^3/uL (4.0-11.0)
[2019-02-26] MEDS ORDERED: IV RINGERS SOLUTION,LACTATED 1,000 ML IV SCH (01:00)
[2019-02-26] MEDS ORDERED: ASPIRIN 81 MG TAB.CHEW PO ONE (01:00)
[2019-02-26 01:08] LABS: BILIRUBIN,URINE NEG (NEG); CLARITY,URINE CLEAR; COLOR,URINE YELLOW; GLUCOSE,URINE NEG (NEG); NITRITE,URINE NEG (NEG); UROBILINOGEN,URINE 0.2 mg/dL (0.2 mg/dL)
[2019-02-26 01:09] LABS: BACTERIA,URINE 0 /HPF (0-FEW); RBC,URINE 0 /HPF (0-2); SQUAMOUS EPITHELIAL CELL,UR OCC /LPF; WBC,URINE OCC /HPF (0-4)
[2019-02-26 01:10] LABS: BARBITURATES NEG (NEG); BENZODIAZEPINES NEG (NEG); CANNABINOIDS NEG (NEG); COCAINE NEG (NEG); METHADONE NEG (NEG); OPIATES NEG (NEG); PHENCYCLIDINE NEG (NEG)
[2019-02-26 01:10] LABS: ALBUMIN 3.7 g/dL (3.4-5.0); ALK PHOS 72 U/L (46-116); ALT (SGPT) 39 U/L (14-59); BLOOD UREA NITROGEN 8 mg/dL (7-20); CALCIUM 9.2 mg/dL (8.5-10.1); CARBON DIOXIDE 29 mmol/L (21-32); CREATININE 0.8 mg/dL (0.6-1.0); GFR 88.9; LIPASE 154 U/L (73-393); MAGNESIUM 1.8 mg/dL (1.8-2.4); POTASSIUM 3.8 mmol/L (3.5-5.1); SODIUM 140 mmol/L (136-145); TOTAL BILIRUBIN 0.2 mg/dL (0.2-1.0); TOTAL PROTEIN 7.2 g/dL (6.4-8.2)
[2019-02-26 01:11] LABS: AMPHETAMINE/METHAMPHETAMINE NEG (NEG)
--- NOTE | 2019-02-26 01:11 | EKG ---
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
--- NOTE | 2019-02-26 01:38 | RAD ---
PA and lateral chest. HISTORY: Chest pain PA and lateral views were taken of the chest. Lungs are clear. Heart is normal in size without heart failure. There is no pleural effusion. IMPRESSION: 1. No acute chest disease. Electronically signed by: Brady Heard MD (02/26/2019 1:35 AM) [facility]
[2019-02-26 01:43] LABS: ANION GAP 8 (6-14); AST (SGOT) 18 U/L (15-37); CHLORIDE 103 mmol/L (98-107)
[2019-02-26 01:45] LABS: DIRECT BILIRUBIN < 0.1 mg/dL (0.0-0.2); GLUCOSE 124 mg/dL (70-99)
[2019-02-26] MEDS ORDERED: LORazepam 1 MG TABLET PO ONE (02:00)
[2019-02-26] MEDS ORDERED: KETOROLAC 30 MG/ML VIAL. IV ONE (02:00)
[2019-02-26 02:07] VITALS: BP 132/79
== END 2019-02-26 02:15 | disposition home or self-care (01) ==
LOC: ER 23:55
DX: R07.89 Other chest pain (principal); F41.9 Anxiety disorder, unspecified; J45.909 Unspecified asthma, uncomplicated; F32.9 Major depressive disorder, single episode, unspecified; K21.9 Gastro-esophageal reflux disease without esophagitis; E78.00 Pure hypercholesterolemia, unspecified; K58.9 Irritable bowel syndrome, unspecified; G43.909 Migraine, unspecified, not intractable, without status migrainosus; F17.210 Nicotine dependence, cigarettes, uncomplicated; E66.01 Morbid (severe) obesity due to excess calories; Z68.39 Body mass index [BMI] 39.0-39.9, adult; Z88.0 Allergy status to penicillin; Z88.2 Allergy status to sulfonamides; Z88.8 Allergy status to other drugs, medicaments and biological substances; Z91.040 Latex allergy status
CPT/HCPCS: 36415; 71046; 80048; 80076; 80307; 81001; 81025; 82550; 83690; 83735; 84443; 84484; 85025; 85379; 85610; 85730; 87086; 93005; 96374; 99285; J1885; J7120

== ENCOUNTER → 2019-03-16 | Outpatient (CLI) | payer OTHER ==
[2019-02-26 02:07] VITALS: BP 132/79
[~2019-03-16] MED LIST changes: +RANI-376 PO; -RANI150T21 PO
--- NOTE | 2019-03-16 19:10 | RAD ---
RIBS RIGHT, ANKLE RIGHT 3V History: Injury, fall today, right rib and ankle pain Comparison: February 26, 2019 chest radiograph Right rib radiographs: Findings: 3 views of the right ribs are submitted. It should be noted the left hemithorax was not included on this exam. There is no right infiltrate, pleural fluid, pneumothorax. No displaced right rib fracture is identified. Impression no 1. No displaced right rib fracture is identified by radiographs. Right ankle radiographs: 3 views of the right ankle are submitted. No acute fracture or dislocation is identified by radiographs. Tibiotalar joint space is maintained. IMPRESSION: 1. No acute right ankle fracture is identified by radiographs. Electronically signed by: Noah Rodríguez MD (03/16/2019 7:08 PM) [facility]
== END ==
LOC: PMG 17:27
PROVIDERS: ATTEND Registered Nurse
DX: M25.571 Pain in right ankle and joints of right foot (principal); R07.81 Pleurodynia
CPT/HCPCS: 71100; 73610

== ENCOUNTER 2019-04-30 09:43 | Emergency (ER) | payer OTHER ==
[~2019-04-30] VITALS: Ht 149.9 cm; Wt 83.0 kg
[2019-04-30] MEDS ORDERED: ORPH-16 PO (10:10)
[2019-04-30] MEDS ORDERED: MELO7.5T29 PO (10:10)
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
[2019-04-30] MEDS: ORPHENADRINE CITRATE 60 MG/2 ML VIAL. IM ONE (10:13)
[2019-04-30] MEDS: KETOROLAC 15 MG/ML VIAL. IM ONE (10:13)
[2019-04-30 10:41] VITALS: BP 131/79
== END 2019-04-30 10:20 | disposition home or self-care (01) ==
LOC: ER 09:43
DX: M54.5 Low back pain (principal); M51.36 Other intervertebral disc degeneration, lumbar region; J45.909 Unspecified asthma, uncomplicated; K21.9 Gastro-esophageal reflux disease without esophagitis; E78.00 Pure hypercholesterolemia, unspecified; G43.909 Migraine, unspecified, not intractable, without status migrainosus; K58.9 Irritable bowel syndrome, unspecified; F17.210 Nicotine dependence, cigarettes, uncomplicated; Z90.49 Acquired absence of other specified parts of digestive tract; Z98.890 Other specified postprocedural states; Z88.0 Allergy status to penicillin; Z88.2 Allergy status to sulfonamides; Z88.8 Allergy status to other drugs, medicaments and biological substances; Z91.040 Latex allergy status
CPT/HCPCS: 96372; 99284; J1885; J2360

== ENCOUNTER → 2019-05-27 | Outpatient (CLI) | payer OTHER ==
[2019-04-30 10:41] VITALS: BP 131/79
[~2019-05-27] MED LIST changes: +MELO7.5T29 PO; +ORPH-16 PO
--- NOTE | 2019-05-27 15:15 | RAD ---
EXAM: Right foot, 2 views. HISTORY: Pain. COMPARISON: None. FINDINGS: 2 views of the right foot are obtained. There is no fracture, dislocation or subluxation. IMPRESSION: No acute osseous finding. Electronically signed by: Dee Parker MD (05/27/2019 3:12 PM) [place] [id number]
--- NOTE | 2019-05-27 15:16 | RAD ---
EXAM: Right ribs, 4 views. HISTORY: Fall. Pain. COMPARISON: None. FINDINGS: 4 views of the right ribs are obtained. There is no fracture. There is no pleural effusion or pneumothorax. No infiltrate is seen. IMPRESSION: No acute osseous finding. Electronically signed by: Dee Parker MD (05/27/2019 3:14 PM) [facility]
== END | disposition home or self-care (01) ==
LOC: PMG 14:41
PROVIDERS: ATTEND Registered Nurse
DX: M79.671 Pain in right foot (principal); R07.81 Pleurodynia
CPT/HCPCS: 71100; 73620

== ENCOUNTER → 2019-06-11 | Outpatient (CLI) | payer OTHER ==
--- NOTE | 2019-06-11 16:08 | RAD ---
Examination: 3 views of the thoracic spine HISTORY: History of back pain COMPARISON: None available FINDINGS: The thoracic vertebral body heights are maintained. No evidence of listhesis identified. IMPRESSION: No acute osseous findings. If pain persists MRI can considered. Electronically signed by: Chrisotpher Mcdonough MD (06/11/2019 4:05 PM) [facility]
== END | disposition home or self-care (01) ==
LOC: PMG 14:58
PROVIDERS: ATTEND Registered Nurse
DX: M54.9 Dorsalgia, unspecified (principal)
CPT/HCPCS: 72072

== ENCOUNTER 2019-07-14 01:17 | Emergency (ER) | payer OTHER ==
[~2019-07-14] VITALS: Ht 149.9 cm; Wt 91.8 kg
--- NOTE | 2019-07-14 02:00 | PHYS DOC ---
Past History Past Medical History: Anxiety, Asthma, Depression, GERD, High Cholesterol, IBS, Migraines, Sciatica, Other Past Surgical History: Appendectomy, , Tonsillectomy Smoking: Cigarettes Alcohol Use: None Drug Use: None Adult General Chief Complaint Chief Complaint: VAGINAL BLEEDING HPI HPI 24-year-old female presents with vaginal bleeding. She was at work tonight and started to have some vaginal bleeding. It was running down her leg so her employer told her she had to go be evaluated before she can return to work. The patient has not had a menses since May. She took a home test which was positive. She then went to her [employer] where she had a negative urine test by a negative serum test in June. She continued to not have a menses until yesterday. She had light spotting yesterday and heavier bleeding today. This is heavier bleeding than she usually has. She denies fever or chills. She is feeling normal otherwise. Review of Systems Review of Systems Constitutional: Denies fever or chills [] Eyes: Denies change in visual acuity, redness, or eye pain [] HENT: Denies nasal congestion or sore throat [] Respiratory: Denies cough or shortness of breath [] Cardiovascular: No additional information not addressed in HPI [] GI: Denies abdominal pain, nausea, vomiting, bloody stools or diarrhea [] : Vaginal bleeding[] Musculoskeletal: Denies back pain or joint pain [] Integument: Denies rash or skin lesions [] Neurologic: Denies headache, focal weakness or sensory changes [] Endocrine: Denies polyuria or polydipsia [] All other systems were reviewed and found to be within normal limits, except as documented in this note. Allergies Allergies Allergies Coded Allergies Type Severity Reaction Last Updated Verified Penicillins Allergy Intermediate 12/15/18 No Sulfa (Sulfonamide Antibiotics) Allergy Intermediate 12/15/18 No aripiprazole Allergy Intermediate 12/15/18 No duloxetine Allergy Intermediate 12/15/18 No fluoxetine Allergy Intermediate 12/15/18 No latex Allergy Intermediate 12/15/18 No fentanyl Allergy Mild HIVES 12/15/18 No Physical Exam Physical Exam Constitutional: Well developed, obese, well nourished, no acute distress, non- toxic appearance. [] HENT: Normocephalic, atraumatic, bilateral external ears normal, oropharynx moist, no oral exudates, nose normal. [] Eyes: PERRLA, EOMI, conjunctiva normal, no discharge. [] Neck: Normal range of motion, no tenderness, supple, no stridor. [] Cardiovascular:Heart rate regular rhythm, no murmur [] Lungs & Thorax: Bilateral breath sounds clear to auscultation [] Abdomen: Bowel sounds normal, soft, no tenderness, no masses, no pulsatile masses. [] Skin: Warm, dry, no erythema, no rash. [] Back: No tenderness, no CVA tenderness. [] Extremities: No tenderness, no cyanosis, no clubbing, ROM intact, no edema. [] Neurologic: Alert and oriented X 3, normal motor function, normal sensory function, no focal deficits noted. [] Psychologic: Affect normal, judgement normal, mood normal. [] Current Patient Data Lab Results Laboratory Tests Test 07/14/19 01:49 POC Urine HCG, Qualitative hcg negative (Negative) EKG EKG [] Radiology/Procedures Radiology/Procedures [] Course & Med Decision Making Course & Med Decision Making Pertinent Labs and Imaging studies reviewed. (See chart for details) The patient's urinalysis is unremarkable. Her urine test is negative. This is likely just the normal restart of her menstrual cycle. I explained to her that it can be heavy after he missed cycle or inferiorly miscarriage. Patient states verbal understanding. She is stable for discharge at this time. We'll give her a note to return to work. [] Dragon Disclaimer Dragon Disclaimer This electronic medical record was generated, in whole or in part, using a voice recognition dictation system. Departure Departure: Impression: Primary Impression: Vaginal bleeding Disposition: HOME, SELF-CARE Condition: STABLE Referrals: KENISHA MUÑOZ [facility] (PCP) Patient Instructions: Menorrhagia, [id number] LA PAIGE DO Jul 14, 2019 02:00
[2019-07-14 02:22] LABS: BACTERIA,URINE 0 /HPF (0-FEW); BILIRUBIN,URINE NEG (NEG); CLARITY,URINE CLEAR; COLOR,URINE YELLOW; GLUCOSE,URINE NEG (NEG); NITRITE,URINE NEG (NEG); SQUAMOUS EPITHELIAL CELL,UR OCC /LPF; UROBILINOGEN,URINE 0.2 mg/dL (0.2 mg/dL); WBC,URINE OCC /HPF (0-4)
[2019-07-14 02:35] VITALS: BP 100/61
== END 2019-07-14 02:35 | disposition home or self-care (01) ==
LOC: ER 01:17
DX: N93.8 Other specified abnormal uterine and vaginal bleeding (principal); J45.909 Unspecified asthma, uncomplicated; K21.9 Gastro-esophageal reflux disease without esophagitis; E78.00 Pure hypercholesterolemia, unspecified; K58.9 Irritable bowel syndrome, unspecified; G43.909 Migraine, unspecified, not intractable, without status migrainosus; Z90.89 Acquired absence of other organs; Z98.890 Other specified postprocedural states; F17.210 Nicotine dependence, cigarettes, uncomplicated; Z88.0 Allergy status to penicillin; Z88.2 Allergy status to sulfonamides; Z88.8 Allergy status to other drugs, medicaments and biological substances; Z91.040 Latex allergy status
CPT/HCPCS: 81001; 81025; 99283

== ENCOUNTER 2019-07-17 17:11 | Emergency (ER) | payer OTHER ==
[~2019-07-17] VITALS: Ht 152.4 cm; Wt 89.4 kg
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
[2019-07-17] MEDS ORDERED: HYDROcodon/IBUPROFEN 7.5/200MG 1 TAB TABLET PO ONE (18:00)
[2019-07-17 18:05] VITALS: BP 150/94
[2019-07-17 18:13] LABS: BACTERIA,URINE MANY /HPF (0-FEW); BILIRUBIN,URINE NEG (NEG); CLARITY,URINE HAZY; COLOR,URINE YELLOW; GLUCOSE,URINE NEG (NEG); NITRITE,URINE NEG (NEG); RBC,URINE RARE /HPF (0-2); SQUAMOUS EPITHELIAL CELL,UR MOD /LPF; UROBILINOGEN,URINE 0.2 mg/dL (0.2 mg/dL)
--- NOTE | 2019-07-17 19:45 | RAD ---
SHOULDER 2+V LEFT, HUMERUS LEFT History: Fall at work. Pain. Technique: 3 views of the left shoulder and 2 views of the left humerus. Comparison: None. Findings: Normal alignment of the glenohumeral and acromioclavicular joints. No fracture. Soft tissues unremarkable. Impression: 1. No acute osseous abnormality. Electronically signed by: Marcel Moy DO (07/17/2019 7:42 PM) [facility]
--- NOTE | 2019-07-17 19:47 | RAD ---
HIP LEFT 2V WITH PELVIS History: Fall at work. Pain. Technique: AP view the pelvis and 2 additional views of the left hip. Comparison: None. Findings: Normal alignment. No fracture. Soft tissues unremarkable. Impression: 1. No acute osseous abnormality. Electronically signed by: Marcel Moy DO (07/17/2019 7:44 PM) [facility]
== END 2019-07-17 19:00 | disposition home or self-care (01) ==
LOC: ER 17:11
DX: S30.1XXA Contusion of abdominal wall, initial encounter (principal); S46.002A Unspecified injury of muscle(s) and tendon(s) of the rotator cuff of left shoulder, initial encounter; S40.012A Contusion of left shoulder, initial encounter; J45.909 Unspecified asthma, uncomplicated; K21.9 Gastro-esophageal reflux disease without esophagitis; E78.00 Pure hypercholesterolemia, unspecified; G43.909 Migraine, unspecified, not intractable, without status migrainosus; F17.210 Nicotine dependence, cigarettes, uncomplicated; Z88.0 Allergy status to penicillin; Z88.2 Allergy status to sulfonamides; Z88.8 Allergy status to other drugs, medicaments and biological substances; Z91.040 Latex allergy status; W18.39XA Other fall on same level, initial encounter; Y93.89 Activity, other specified; Y92.89 Other specified places as the place of occurrence of the external cause; Y99.0 Civilian activity done for income or pay
CPT/HCPCS: 73030; 73060; 73502; 81001; 81025; 87086; 99285

== ENCOUNTER 2019-07-20 19:32 | Emergency (ER) | payer OTHER ==
[~2019-07-20] VITALS: Ht 180.3 cm; Wt 90.6 kg
[2019-07-20 19:46] VITALS: BP 127/82
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
[2019-07-20] MEDS ORDERED: HYDR-1179 PO (20:24)
[2019-07-20] MEDS ORDERED: HYDROcodon/IBUPROFEN 7.5/200MG 1 TAB TABLET PO ONE (20:30)
== END 2019-07-20 20:51 | disposition home or self-care (01) ==
LOC: ER 19:32
DX: S40.012D Contusion of left shoulder, subsequent encounter (principal); S70.02XD Contusion of left hip, subsequent encounter; S46.002D Unspecified injury of muscle(s) and tendon(s) of the rotator cuff of left shoulder, subsequent encounter; J45.909 Unspecified asthma, uncomplicated; K21.9 Gastro-esophageal reflux disease without esophagitis; E78.00 Pure hypercholesterolemia, unspecified; G43.909 Migraine, unspecified, not intractable, without status migrainosus; K58.9 Irritable bowel syndrome, unspecified; F17.210 Nicotine dependence, cigarettes, uncomplicated; Z88.0 Allergy status to penicillin; Z88.2 Allergy status to sulfonamides; Z91.040 Latex allergy status; Z88.8 Allergy status to other drugs, medicaments and biological substances; W18.39XD Other fall on same level, subsequent encounter
CPT/HCPCS: 99283

== ENCOUNTER → 2019-08-13 | Outpatient (CLI) | payer OTHER ==
[2019-07-20 19:46] VITALS: BP 127/82
[~2019-08-13] MED LIST changes: +HYDR-1179 PO
[2019-08-13 15:12] LABS: BASO % 0 % (0-3); EOS # 0.1 x10^3/uL (0.0-0.7); EOS % 2 % (0-3); HEMATOCRIT 41.3 % (36.0-47.0); HEMOGLOBIN 13.8 g/dL (12.0-15.5); LYMPH # 2.1 x10^3/uL (1.0-4.8); LYMPH % 30 % (24-48); MEAN CORPUSCULAR HEMOGLOBIN 29 pg (25-35); MEAN CORPUSCULAR HGB CONC 33 g/dL (31-37); MEAN CORPUSCULAR VOLUME 86 fL (79-100); MONO # 0.4 x10^3/uL (0.0-1.1); MONO % 6 % (0-9); NEUT # 4.5 x10^3uL (1.8-7.7); NEUT % 62 % (31-73); PLATELET COUNT 245 x10^3/uL (140-400); RED BLOOD COUNT 4.82 x10^6/uL (3.50-5.40); RED CELL DISTRIBUTION WIDTH 13.4 % (11.5-14.5); WHITE BLOOD COUNT 7.2 x10^3/uL (4.0-11.0)
[2019-08-14 05:08] LABS: ESTRADIOL LEVEL 45.4 pg/mL (.); LUTEINIZING HORMONE 4.6 mIU/mL (.); PROGESTERONE <0.1 ng/mL (.)
[2019-08-14 06:07] LABS: FSH 6.3 mIU/mL (.)
[2019-08-16 11:09] LABS: TESTOSTERONE FREE 0.79 ng/dL (0.10-0.85); TESTOSTERONE TOTAL 38 ng/dL (8-48)
[2019-08-16 17:09] LABS: ESTROGEN LEVEL 106 pg/mL (.)
== END | disposition home or self-care (01) ==
LOC: PMG 11:47
PROVIDERS: ATTEND Registered Nurse
DX: N92.6 Irregular menstruation, unspecified (principal)
CPT/HCPCS: 36415; 82627; 82670; 82672; 83001; 83002; 84144; 84402; 84403; 84443; 85025

== ENCOUNTER 2019-08-17 11:13 | Emergency (ER) | payer OTHER ==
[~2019-08-17] VITALS: Ht 180.3 cm; Wt 90.6 kg
[2019-08-17 11:26] VITALS: BP 117/78
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
[2019-08-17] MEDS ORDERED: CYCLOBENZAPRINE 10 MG TABLET. PO ONE (12:00)
[2019-08-17] MEDS ORDERED: HYDROcodone/APAP 10/325 1 TAB TABLET PO ONE (12:00)
== END 2019-08-17 12:05 | disposition home or self-care (01) ==
LOC: ER 11:13
DX: G89.29 Other chronic pain (principal); M54.5 Low back pain; M54.6 Pain in thoracic spine; F17.210 Nicotine dependence, cigarettes, uncomplicated; E28.2 Polycystic ovarian syndrome; Z88.0 Allergy status to penicillin; Z88.2 Allergy status to sulfonamides; Z88.8 Allergy status to other drugs, medicaments and biological substances; Z91.040 Latex allergy status
CPT/HCPCS: 99283

== ENCOUNTER 2019-10-05 19:17 | Emergency (ER) | payer OTHER ==
[~2019-10-05] VITALS: Ht 149.9 cm; Wt 93.9 kg
--- NOTE | 2019-10-05 19:24 | PHYS DOC ---
Past History Past Medical History: Migraines, Other Additional Past Medical Histor: PCOS Past Surgical History: No Surgical History Additional Past Surgical Histo: esophageal " stretched" Smoking: Cigarettes Alcohol Use: Rarely Drug Use: Marijuana Adult General Chief Complaint Chief Complaint: HEADACHE.." I got one of my tension... migraine headaches..." HPI HPI Patient is a 24 year old female who presents with above hx and complaints of headache. Pt. normally follows with [facility] for care. Patient describes hea dache is moderately severe. No history of trauma. No history of fever or chills. No history of travel. No history of specific ill contacts. Patient has had numerous migraines over the years. Patient states previous CT workup was negative. Patient localizes pain over her forehead and scalp area. There is no temporal artery tenderness. Patient has some complaints of mild nausea. Some photophobia phobia. Review of Systems Review of Systems Constitutional: Denies fever or chills [] Eyes: Denies change in visual acuity, redness, or eye pain . The patient has [ ]some complaints of photophobia HENT: Denies nasal congestion or sore throat [] Respiratory: Denies cough or shortness of breath [] Cardiovascular: No additional information not addressed in HPI [] GI: Denies abdominal pain, nausea, vomiting, bloody stools or diarrhea [] : Denies dysuria or hematuria [] Musculoskeletal: Denies back pain or joint pain [] Integument: Denies rash or skin lesions [] Neurologic: Complaints of headache. Denies, focal weakness or sensory changes [] Endocrine: Denies polyuria or polydipsia [] All other systems were reviewed and found to be within normal limits, except as documented in this note. Family History Family History Noncontributory to presentation Current Medications Current Medications See nursing for home meds Allergies Allergies Allergies Coded Allergies Type Severity Reaction Last Updated Verified Penicillins Allergy Intermediate 12/15/18 No Sulfa (Sulfonamide Antibiotics) Allergy Intermediate 12/15/18 No aripiprazole Allergy Intermediate 12/15/18 No duloxetine Allergy Intermediate 12/15/18 No fluoxetine Allergy Intermediate 12/15/18 No latex Allergy Intermediate 12/15/18 No fentanyl Allergy Mild HIVES 12/15/18 No Physical Exam Physical Exam Constitutional: Mild distress, non-toxic appearance. [] HENT: Normocephalic, atraumatic, bilateral external ears normal, oropharynx moist, no oral exudates, nose normal. [] Eyes: PERRLA, EOMI, conjunctiva normal, no discharge. [+ photophobia. Fundus benign. Limited. Neck: Normal range of motion, no tenderness, supple, no stridor. [] Cardiovascular:Heart rate regular rhythm, no murmur [] Lungs & Thorax: Bilateral breath sounds equal at apex with scattered wheezes auscultation [] Abdomen: Bowel sounds normal, soft, no tenderness, no masses, no pulsatile masses. [] Skin: Warm, dry, no erythema, no rash. [] Back: No tenderness, no CVA tenderness. [] Extremities: No tenderness, no cyanosis, no clubbing, ROM intact, no edema. [] Neurologic: Alert and oriented X 3, normal motor function, normal sensory function, no focal deficits noted. []DTRs +2 patella and brachial. Ambulatory without problems. No drift. Title Curative Specialist equal. Right-hand dominant. Psychologic: Affect normal, judgement normal, mood normal. [] EKG EKG [] Radiology/Procedures Radiology/Procedures CT deferred[] Course & Med Decision Making Course & Med Decision Making Pertinent Labs and Imaging studies reviewed. (See chart for details) Spinal tap deferred by pt. Exhibit UC[employer] capacity. Request treatment clinically. Patient take Zofran for nausea and vomiting. Patient take Tylenol and ibuprofen for pain. May try Imitrex 100 mg at beginning of headache and take no more than 200 mg 24 hours. Follow-up primary care. Return if any concerns. Impression: 1. Tension headaches-migraine 2. Hx. Polycystic Ovary Syndrome [] Dragon Disclaimer Dragon Disclaimer This electronic medical record was generated, in whole or in part, using a voice recognition dictation system. Departure Departure: Disposition: 01 HOME/RESIDENCE PRIOR TO ADM Condition: STABLE Referrals: KENISHA MUÑOZ FAT PURIFICATION WORKER-C (PCP) Scripts Ondansetron Hcl (ZOFRAN) 8 Mg Tablet 8 MG PO QIDPRN PRN for active nausea and vomiting, #30 BOTTLE Prov: XOCHITL STREETER MD 10/05/19 Sumatriptan Succinate (IMITREX) 100 Mg Tablet 100 MG PO DAILY for headache, #6 TAB Prov: XOCHITL STREETER MD 12/30/19 Dragon Disclaimer This chart was dictated in whole or in part using Voice Recognition software in a busy, high-work load, and often noisy Emergency Department environment. It may contain unintended and wholly unrecognized errors or omissions. Dragon Disclaimer This chart was dictated in whole or in part using Voice Recognition software in a busy, high-work load, and often noisy Emergency Department environment. It may contain unintended and wholly unrecognized errors or omissions. XOCHITL STREETER MD Oct 05, 2019 19:24
[2019-10-05 19:25] VITALS: BP 125/71
[2019-10-05] MEDS ORDERED: ONDA8TAB9 PO (20:04)
[2019-10-05] MEDS ORDERED: SUMA100T3 PO (20:04)
[2019-10-05 20:10] LABS: BARBITURATES NEG (NEG); BENZODIAZEPINES NEG (NEG); CANNABINOIDS NEG (NEG); COCAINE NEG (NEG); METHADONE NEG (NEG); OPIATES NEG (NEG); PHENCYCLIDINE NEG (NEG)
[2019-10-05 20:12] LABS: AMPHETAMINE/METHAMPHETAMINE NEG (NEG)
[2019-10-05 20:14] LABS: BILIRUBIN,URINE NEG (NEG); CLARITY,URINE CLEAR; COLOR,URINE YELLOW; GLUCOSE,URINE NEG (NEG); NITRITE,URINE NEG (NEG); RBC,URINE 0 /HPF (0-2); UROBILINOGEN,URINE 0.2 mg/dL (0.2 mg/dL); WBC,URINE 0 /HPF (0-4)
[2019-10-05 20:15] LABS: BACTERIA,URINE MOD /HPF (0-FEW); SQUAMOUS EPITHELIAL CELL,UR MANY /LPF
[2019-10-05] MEDS ORDERED: KETOROLAC 60 MG/2 ML VIAL. IM ONE (20:15)
[2019-10-05] MEDS ORDERED: SUMAtriptan SUCC 6 MG/0.5 ML VIAL SQ ONE (20:15)
[2019-10-05] MEDS ORDERED: diphenhydrAMINE 50 MG/ML VIAL IM ONE (20:15)
[2019-10-05] MEDS ORDERED: ONDANSETRON ODT 4 MG TAB.RAPDIS PO ONE (20:15)
== END 2019-10-05 20:25 | disposition home or self-care (01) ==
LOC: ER 19:17
DX: G44.209 Tension-type headache, unspecified, not intractable (principal); G43.909 Migraine, unspecified, not intractable, without status migrainosus; E28.2 Polycystic ovarian syndrome; F17.210 Nicotine dependence, cigarettes, uncomplicated; Z88.0 Allergy status to penicillin; Z88.2 Allergy status to sulfonamides; Z88.8 Allergy status to other drugs, medicaments and biological substances; Z91.040 Latex allergy status
CPT/HCPCS: 36415; 80307; 81001; 81025; 87086; 96372; 99284; J1200; J1885; J3030; Q0162

== ENCOUNTER → 2019-10-12 | Outpatient (CLI) | payer OTHER ==
[2019-10-05 19:25] VITALS: BP 125/71
[~2019-10-12] MED LIST changes: +ONDA8TAB9 PO; +SUMA100T3 PO
--- NOTE | 2019-10-12 14:57 | RAD ---
PA and lateral views of the chest. Comparison: 02/25/2019. Indication: Cough for several weeks. History of smoking and asthma Findings: The heart size is normal. No pneumothorax or effusion. No air space or interstitial disease. The bony structures are intact. Impression: 1. No acute cardiopulmonary process. Electronically signed by: Tyree Argueta MD (10/12/2019 2:54 PM) [facility]
== END | disposition home or self-care (01) ==
LOC: DXRAD 14:03
PROVIDERS: ATTEND Registered Nurse
DX: R05 Cough (principal); J45.909 Unspecified asthma, uncomplicated; Z87.891 Personal history of nicotine dependence
CPT/HCPCS: 71046

== ENCOUNTER 2019-10-13 18:55 | Emergency (ER) | payer OTHER ==
[~2019-10-13] VITALS: Ht 149.9 cm; Wt 93.9 kg
[2019-10-13 19:30] VITALS: BP 129/84
[2019-10-13] MEDS ORDERED: PRED20TA PO (20:33)
--- NOTE | 2019-10-13 20:33 | PHYS DOC ---
Past History Past Medical History: Migraines, Other Additional Past Medical Histor: PCOS Past Surgical History: Appendectomy, , Tonsillectomy, Other Additional Past Surgical Histo: esophageal dilation Smoking: Cigarettes Alcohol Use: None Drug Use: None Adult General Chief Complaint Chief Complaint: COUGH HPI HPI Patient is a 24-year-old heavy smoker who presents with a 3-4 week history of upper respiratory type infection. She's had waxing and waning subjective fevers at home. She states she has been prescribed 3 different rounds of antibiotics by a local nurse practitioner. She states she continues to cough. She is wondering why she is not getting better. She denies any hemoptysis. Review of Systems Review of Systems Constitutional: Denies fever or chills [] Eyes: Denies change in visual acuity, redness, or eye pain [] HENT: Denies nasal congestion or sore throat [] Respiratory: Per history of present illness[] Cardiovascular: No additional information not addressed in HPI [] GI: Denies abdominal pain, nausea, vomiting, bloody stools or diarrhea [] : Denies dysuria or hematuria [] Musculoskeletal: Denies back pain or joint pain [] Integument: Denies rash or skin lesions [] Neurologic: Denies headache, focal weakness or sensory changes [] Endocrine: Denies polyuria or polydipsia [] All other systems were reviewed and found to be within normal limits, except as documented in this note. Allergies Allergies Allergies Coded Allergies Type Severity Reaction Last Updated Verified Penicillins Allergy Intermediate 12/15/18 No Sulfa (Sulfonamide Antibiotics) Allergy Intermediate 12/15/18 No aripiprazole Allergy Intermediate 12/15/18 No duloxetine Allergy Intermediate 12/15/18 No fluoxetine Allergy Intermediate 12/15/18 No latex Allergy Intermediate 12/15/18 No fentanyl Allergy Mild HIVES 12/15/18 No Physical Exam Physical Exam Constitutional: Well developed, well nourished, no acute distress, non-toxic appearance. [] HENT: Normocephalic, atraumatic, bilateral external ears normal, oropharynx moist, no oral exudates, nose normal. [] Eyes: PERRLA, EOMI, conjunctiva normal, no discharge. [] Neck: Normal range of motion, no tenderness, supple, no stridor. [] Cardiovascular:Heart rate regular rhythm, no murmur [] Lungs & Thorax: Bilateral breath sounds clear to auscultation [] Abdomen: Bowel sounds normal, soft, no tenderness, no masses, no pulsatile masses. [] Skin: Warm, dry, no erythema, no rash. [] Back: No tenderness, no CVA tenderness. [] Extremities: No tenderness, no cyanosis, no clubbing, ROM intact, no edema. [] Neurologic: Alert and oriented X 3, normal motor function, normal sensory function, no focal deficits noted. [] Psychologic: Affect normal, judgement normal, mood normal. [] Current Patient Data Vital Signs Vital Signs Date Time Temp Pulse Resp B/P (MAP) Pulse Ox O2 Delivery O2 Flow Rate FiO2 10/13/19 19:30 99.5 104 18 96 Room Air EKG EKG [] Radiology/Procedures Radiology/Procedures [] Course & Med Decision Making Course & Med Decision Making Pertinent Labs and Imaging studies reviewed. (See chart for details) [] Dragon Disclaimer Dragon Disclaimer This electronic medical record was generated, in whole or in part, using a voice recognition dictation system. Departure Departure: Impression: Primary Impression: Upper respiratory infection Disposition: HOME, SELF-CARE Condition: STABLE Referrals: KENISHA MUÑOZ NUT PACKER-C (PCP) Patient Instructions: Upper Respiratory Infection, Adult Additional Instructions: Stop smoking. Use albuterol as needed. Return to the emergency department with any new or concerning symptoms Scripts Prednisone (PREDNISONE) 20 Mg Tablet 1 TAB PO TID for Bronchitis for 5 Days, #15 TAB Prov: PEÑA FERREIRA DO 10/13/19 Problem Qualifiers Primary Impression: Upper respiratory infection URI type: unspecified viral URI Qualified Codes: J06.9 - Acute upper respiratory infection, unspecified PEÑA FERREIRA DO Oct 13, 2019 20:33
== END 2019-10-13 20:43 | disposition home or self-care (01) ==
LOC: ER 18:55
DX: J06.9 Acute upper respiratory infection, unspecified (principal); G43.909 Migraine, unspecified, not intractable, without status migrainosus; F17.210 Nicotine dependence, cigarettes, uncomplicated; Z88.0 Allergy status to penicillin; Z88.2 Allergy status to sulfonamides; Z88.8 Allergy status to other drugs, medicaments and biological substances; Z91.040 Latex allergy status
CPT/HCPCS: 99283

== ENCOUNTER 2019-10-17 18:01 | Emergency (ER) | payer OTHER | END 2019-10-17 18:30 | disposition left against medical advice (07) | LOC: ER 18:01 | DX: R19.7 Diarrhea, unspecified (principal); R11.10 Vomiting, unspecified; Z53.21 Procedure and treatment not carried out due to patient leaving prior to being seen by health care provider ==

== ENCOUNTER 2019-10-19 00:06 | Emergency (ER) | payer OTHER ==
[~2019-10-19] VITALS: Ht 149.9 cm; Wt 92.5 kg
[2019-10-19] MEDS ORDERED: ONDANSETRON ODT 4 MG TAB.RAPDIS PO ONE (00:30)
--- NOTE | 2019-10-19 00:30 | PHYS DOC ---
Past History Past Medical History: Asthma, Bronchitis, Migraines, Other Additional Past Medical Histor: PCOS Past Surgical History: Appendectomy, , Tonsillectomy, Other Additional Past Surgical Histo: esophageal dilation Smoking: Cigarettes Additional Smoking Information: 10/08 pk QD Alcohol Use: None Drug Use: None Adult General Chief Complaint Chief Complaint: NAUSEA/VOMITING/DIARRHEA ".. I still having coughing... nauseas.. and vomiting.. and some diarrhea.. I finished my antibiotic once.. and then they said to quit taking them.. the second time.. that I just a virus.. but I am still sick... I took 20 mg of prednisone for 5 days.. and been using the inhaler.. " HPI HPI Patient is a 24 year old female who presents with above complaints and history of nausea, vomiting, diarrhea, cough, malaise, arthralgia, myalgia. Patient has had 1 course of antibiotics and have another course of antibiotics patient has patient completed 5 days of 20 mg of prednisone a day. Patient hasn't been used MDI. Patient does not believe in getting flu vaccination. Patient states she has not been checked for flu in the clinic or in the emergency department. Patient does continue to smoke. Has been around her daughter has an upper respiratory infection. No recent travel. No history immunosuppression. No history of bad food intake. Review of Systems Review of Systems Constitutional: Subjective history of fever or chills [] Eyes: Denies change in visual acuity, redness, or eye pain [] HENT: Hx of nasal congestion and sore throat [] Respiratory: History of cough and wheezing Cardiovascular: No additional information not addressed in HPI [] GI: Complaints of abdominal pain, nausea, vomiting, and diarrhea [] : Denies dysuria or hematuria [] Musculoskeletal: Denies back pain or joint pain [] Integument: Denies rash or skin lesions [] Neurologic: Denies headache, focal weakness or sensory changes [] Endocrine: Denies polyuria or polydipsia [] All other systems were reviewed and found to be within normal limits, except as documented in this note. Family History Family History Daughter is sick with upper respiratory infection Current Medications Current Medications See nursing for home meds Current Medications Medications (Trade) Dose Ordered Sig/Gama Start Time Stop Time Status Last Admin Dose Admin Ondansetron HCl (Zofran Odt) 8 mg 1X ONCE 10/19/19 00:30 10/19/19 00:31 UNV Allergies Allergies Allergies Coded Allergies Type Severity Reaction Last Updated Verified Penicillins Allergy Intermediate 12/15/18 No Sulfa (Sulfonamide Antibiotics) Allergy Intermediate 12/15/18 No aripiprazole Allergy Intermediate 12/15/18 No duloxetine Allergy Intermediate 12/15/18 No fluoxetine Allergy Intermediate 12/15/18 No latex Allergy Intermediate 12/15/18 No fentanyl Allergy Mild HIVES 12/15/18 No Physical Exam Physical Exam Constitutional: no acute distress, non-toxic appearance. [] HENT: Normocephalic, atraumatic, bilateral external ears normal, oropharynx moist, nasal drainage and erythema, no oral exudates, nose swollen turbinates and rhinorrhea. Eyes: PERRLA, EOMI, conjunctiva normal, no discharge. [] Neck: Normal range of motion, no tenderness, supple, no stridor. [] Cardiovascular:Tachycardia Heart rate regular rhythm, no murmur [] Lungs & Thorax: Bilateral breath sounds equal apexes scattered wheezes on auscultation [] Abdomen: Bowel sounds hyperactive, soft, mild generalized tenderness, no masses, no pulsatile masses. [Multiple surgery scars. Obese. Some tenderness in left flank and lower quadrant on rebound. Skin: Warm, dry, no erythema, no rash. [] Back: No tenderness, no CVA tenderness. [] Extremities: No tenderness, no cyanosis, no clubbing, ROM intact, no edema. [] No true psoas sign. Neurologic: Alert and oriented X 3, normal motor function, normal sensory function, no focal deficits noted. [] Psychologic: Affect anxious, judgement normal, mood normal. [] Current Patient Data Vital Signs Vital Signs Date Time Temp Pulse Resp B/P (MAP) Pulse Ox O2 Delivery O2 Flow Rate FiO2 10/19/19 00:08 97.9 109 18 98 Room Air EKG EKG [] Radiology/Procedures Radiology/Procedures [] Course & Med Decision Making Course & Med Decision Making Pertinent Labs and Imaging studies reviewed. (See chart for details) Patient gargle with Listerine 4 times a day. Patient take Tylenol and ibuprofen for discomfort. Patient be on a clear fluid diet only for the next 48 hours. No milk or solids. Must allow bowel rest for the juices and clear fluids. Take Zofran 8 mg 4 times a day for active vomiting. May use [id number] Pepto- Bismol for diarrhea. Follow-up primary care. Continue use MDI 2 puffs 4 times a day. Patient strongly encouraged to stop smoking.. Impression: 1. Viral Syndrome 2. Tobacco Use [] Dragon Disclaimer Dragon Disclaimer This electronic medical record was generated, in whole or in part, using a voice recognition dictation system. Departure Departure: Disposition: HOME/RESIDENCE PRIOR TO ADM Condition: STABLE Referrals: KENISHA MUÑOZ DIETITIAN ASSISTANT-C (PCP) XOCHITL STREETER MD Oct 19, 2019 00:29
[2019-10-19 00:51] LABS: BARBITURATES NEG (NEG); BENZODIAZEPINES NEG (NEG); CANNABINOIDS NEG (NEG); COCAINE NEG (NEG); METHADONE NEG (NEG); OPIATES NEG (NEG); PHENCYCLIDINE NEG (NEG)
[2019-10-19 00:53] LABS: BACTERIA,URINE 0 /HPF (0-FEW); BILIRUBIN,URINE NEG (NEG); CLARITY,URINE CLEAR; COLOR,URINE YELLOW; GLUCOSE,URINE NEG (NEG); NITRITE,URINE NEG (NEG); RBC,URINE 0 /HPF (0-2); SQUAMOUS EPITHELIAL CELL,UR FEW /LPF; UROBILINOGEN,URINE 0.2 mg/dL (0.2 mg/dL); WBC,URINE OCC /HPF (0-4)
[2019-10-19 00:55] LABS: AMPHETAMINE/METHAMPHETAMINE NEG (NEG)
[2019-10-19 01:16] LABS: U PREG PATIENT NEGATIVE (NEG)
[2019-10-19 02:25] VITALS: BP 121/77
[2019-10-19 02:26] LABS: INFLUENZA A PATIENT NEGATIVE (NEGATIVE); INFLUENZA B PATIENT NEGATIVE (NEGATIVE)
== END 2019-10-19 03:11 | disposition home or self-care (01) ==
LOC: ER 00:06
DX: B34.9 Viral infection, unspecified (principal); J45.909 Unspecified asthma, uncomplicated; G43.909 Migraine, unspecified, not intractable, without status migrainosus; F17.210 Nicotine dependence, cigarettes, uncomplicated; Z88.0 Allergy status to penicillin; Z88.2 Allergy status to sulfonamides; Z91.040 Latex allergy status; Z88.8 Allergy status to other drugs, medicaments and biological substances
CPT/HCPCS: 36415; 80307; 81001; 81025; 87070; 87086; 87804; 87880; 99284; Q0162

== ENCOUNTER 2019-10-30 23:17 | Emergency (ER) | payer OTHER ==
[~2019-10-30] VITALS: Ht 149.9 cm; Wt 93.4 kg
[2019-10-30 23:25] VITALS: BP 123/85
[2019-10-30] MEDS ORDERED: hydrOXYzine HCL 25 MG TABLET PO PRN (23:45)
[2019-10-30] MEDS ORDERED: methylPREDNISolone ACETATE 80 MG/ML VIAL. IM ONE (23:45)
[2019-10-30] MEDS ORDERED: hydrOXYzine HCL 25 MG TABLET ONE (23:50)
[2019-10-30] MEDS ORDERED: methylPREDNISolone ACETATE 80 MG/ML VIAL. ONE (23:51)
[2019-10-30] MEDS ORDERED: HYDR25TA PO (23:57)
--- NOTE | 2019-10-30 23:57 | PHYS DOC ---
Past History Past Medical History: Asthma, Bronchitis, Migraines, Other Additional Past Medical Histor: PCOS Past Surgical History: Appendectomy, , Tonsillectomy, Other Additional Past Surgical Histo: esophageal dilation Smoking: Cigarettes Alcohol Use: None Drug Use: None Adult General Chief Complaint Chief Complaint: SKIN PROBLEM HPI HPI Patient is a 24 year old female who presents with complaint of hives. Notes that the symptoms started approximately 30 minutes prior to arrival. States that she started noticing hives along her left upper arm and states that they've spread across her neck and to her right upper extremity. Is unsure if she came in contact with anything unusual that could've caused the hives. Denies any associated nausea, vomiting, throat swelling, difficulty breathing, or lightheadedness. Has not taking medications for her symptoms. Has not been using any new detergents, soaps, or perfumes at home.. Review of Systems Review of Systems Constitutional: Denies fever or chills [] Eyes: Denies change in visual acuity, redness, or eye pain [] HENT: Denies nasal congestion or sore throat [] Respiratory: Denies cough or shortness of breath [] Cardiovascular: Denies chest pain or edema[] GI: Denies abdominal pain, nausea, vomiting, bloody stools or diarrhea [] : Denies dysuria or hematuria [] Musculoskeletal: Denies back pain or joint pain [] Integument: Hives[] Neurologic: Denies headache, focal weakness or sensory changes [] All other systems were reviewed and found to be within normal limits, except as documented in this note. Current Medications Current Medications Current Medications Medications (Trade) Dose Ordered Sig/Gama Start Time Stop Time Status Last Admin Dose Admin Hydroxyzine HCl (Atarax) 25 mg STK-MED ONCE 10/30/19 23:50 10/30/19 23:52 DC Methylprednisolone Acetate (DEPO-Medrol IM) 80 mg STK-MED ONCE 10/30/19 23:51 10/30/19 23:51 DC Allergies Allergies Allergies Coded Allergies Type Severity Reaction Last Updated Verified Penicillins Allergy Intermediate 12/15/18 No Sulfa (Sulfonamide Antibiotics) Allergy Intermediate 12/15/18 No aripiprazole Allergy Intermediate 12/15/18 No duloxetine Allergy Intermediate 12/15/18 No fluoxetine Allergy Intermediate 12/15/18 No latex Allergy Intermediate 12/15/18 No fentanyl Allergy Mild HIVES 12/15/18 No Physical Exam Physical Exam Constitutional: Well developed, well nourished, no acute distress, non-toxic appearance. [] HENT: Normocephalic, atraumatic, bilateral external ears normal, oropharynx moist, no oral exudates, nose normal. [] Eyes: PERRLA, EOMI, conjunctiva normal, no discharge. [] Neck: Normal range of motion, no tenderness, supple, no stridor. [] Cardiovascular:Heart rate regular rhythm, no murmur [] Lungs & Thorax: Bilateral breath sounds clear to auscultation [] Abdomen: Bowel sounds normal, soft, no tenderness, no masses, no pulsatile masses. [] Skin: Warm, dry, no erythema, multiple urticarial lesions present along bilat eral upper arms, around neck and hairline, and along lower back. [] Back: No tenderness, no CVA tenderness. [] Extremities: No tenderness, no cyanosis, no clubbing, ROM intact, no edema. [] Neurologic: Alert and oriented X 3, normal motor function, normal sensory function, no focal deficits noted. [] Current Patient Data Vital Signs Vital Signs Date Time Temp Pulse Resp B/P (MAP) Pulse Ox O2 Delivery O2 Flow Rate FiO2 10/30/19 23:25 97.9 96 22 123/85 (98) 95 Room Air Lab Results Not performed EKG EKG Not performed[] Radiology/Procedures Radiology/Procedures Not performed[] Course & Med Decision Making Course & Med Decision Making Pertinent Labs and Imaging studies reviewed. (See chart for details) Patient given IM Depo-Medrol in the emergency department and started on Atarax. Etiology of hives is unclear but suspected to be allergy mediated. Advised to continue oral Atarax as needed for itching. Recommended follow-up with primary doctor in the next 3-5 days for reevaluation. Advised return to emergency department for any worsening symptoms per the patient was understanding and in agreement with treatment plan.[] Dragon Disclaimer Dragon Disclaimer This electronic medical record was generated, in whole or in part, using a voice recognition dictation system. Departure Departure: Impression: Primary Impression: Hives Disposition: 01 HOME, SELF-CARE Condition: IMPROVED Referrals: KENISHA MUÑOZ INDUSTRIAL SAFETY AND HEALTH SPECIALIST-C (PCP) Patient Instructions: Hives Additional Instructions: Follow-up with your primary doctor in the next 3-5 days if symptoms are not improving. Return to the emergency department for any worsening symptoms. Scripts Hydroxyzine Hcl (HYDROXYZINE HCL) 25 Mg Tablet 1 TAB PO TID PRN for ITCHING, #30 TAB Prov: PATRICE COLON MD 10/30/19 PATRICE COLON MD Oct 30, 2019 23:57
== END 2019-10-31 00:18 | disposition home or self-care (01) ==
LOC: ER 23:17
DX: L50.8 Other urticaria (principal); G43.909 Migraine, unspecified, not intractable, without status migrainosus; F17.210 Nicotine dependence, cigarettes, uncomplicated; J45.909 Unspecified asthma, uncomplicated; Z90.89 Acquired absence of other organs
CPT/HCPCS: 96372; 99283; J1040

== ENCOUNTER 2019-11-27 23:56 | Emergency (ER) | payer OTHER ==
[~2019-11-27] VITALS: Ht 149.9 cm; Wt 93.4 kg
[~2019-11-27 23:56] MED LIST changes: +HYDR25TA PO
--- NOTE | 2019-11-28 00:21 | PHYS DOC ---
Past History Past Medical History: Anxiety, Asthma, Bronchitis, Diabetes, Fibromyalgia, High Cholesterol, Migraines, Other Additional Past Medical Histor: PCOS Past Surgical History: Appendectomy, , Tonsillectomy, Other Additional Past Surgical Histo: esophageal dilation Smoking: Cigarettes Alcohol Use: None Drug Use: None Adult General Chief Complaint Chief Complaint: HEADACHE HPI HPI 24-year-old female presents with headache. The patient has a diagnosis drained. Her headache started this morning. She has not taken anything because no [id number] medicines tend work. She usually tries to sleep them off. She was asleep, but woke up about 20 minutes ago with headache worse was earlier. It is a right-sided pulsating headache. She has photophobia. She has working with her neurologist to discover triggers and appropriate treatment. She does not know what her triggers are at this time. She's had some nausea but no vomiting. She denies fever or chills. Review of Systems Review of Systems Constitutional: Denies fever or chills [] Eyes: Denies change in visual acuity, redness, or eye pain [] HENT: Denies nasal congestion or sore throat [] Respiratory: Denies cough or shortness of breath [] Cardiovascular: No additional information not addressed in HPI [] GI: Denies abdominal pain, nausea, vomiting, bloody stools or diarrhea [] : Denies dysuria or hematuria [] Musculoskeletal: Denies back pain or joint pain [] Integument: Denies rash or skin lesions [] Neurologic: Headache. Denies focal weakness or sensory changes [] Endocrine: Denies polyuria or polydipsia [] All other systems were reviewed and found to be within normal limits, except as documented in this note. Current Medications Current Medications Current Medications Medications (Trade) Dose Ordered Sig/Gama Start Time Stop Time Status Last Admin Dose Admin Diphenhydramine HCl (Benadryl) 25 mg 1X ONCE 11/28/19 00:15 11/28/19 00:16 UNV Ketorolac Tromethamine (Toradol 30mg Vial) 30 mg 1X ONCE 11/28/19 00:15 11/28/19 00:16 UNV Metoclopramide HCl (Reglan Vial) 10 mg 1X ONCE 11/28/19 00:15 11/28/19 00:16 UNV Sodium Chloride 1,000 ml @ 1,000 mls/hr 1X ONCE 11/28/19 00:15 11/28/19 01:14 UNV Allergies Allergies Allergies Coded Allergies Type Severity Reaction Last Updated Verified Penicillins Allergy Intermediate 10/31/19 No Sulfa (Sulfonamide Antibiotics) Allergy Intermediate 10/31/19 No aripiprazole Allergy Intermediate 10/31/19 No duloxetine Allergy Intermediate 10/31/19 No fluoxetine Allergy Intermediate 10/31/19 No latex Allergy Intermediate 10/31/19 No fentanyl Allergy Mild HIVES 10/31/19 No gabapentin Allergy Unknown 10/31/19 Yes Physical Exam Physical Exam Constitutional: Well developed, morbidly obese, well nourished, no acute distress, non-toxic appearance. [] HENT: Normocephalic, atraumatic, bilateral external ears normal, oropharynx moist, no oral exudates, nose normal. [] Eyes: Photophobia. PERRLA, EOMI, conjunctiva normal, no discharge. [] Neck: Normal range of motion, no tenderness, supple, no stridor. [] Cardiovascular: Heart rate regular rhythm, no murmur [] Lungs & Thorax: Bilateral breath sounds clear to auscultation [] Abdomen: Bowel sounds normal, soft, no tenderness, no masses, no pulsatile masses. [] Skin: Warm, dry, no erythema, no rash. [] Back: No tenderness, no CVA tenderness. [] Extremities: No tenderness, no cyanosis, no clubbing, ROM intact, no edema. [] Neurologic: Alert and oriented X 3, normal motor function, normal sensory function, no focal deficits noted. [] Psychologic: Affect normal, judgement normal, mood normal. [] Current Patient Data Vital Signs Vital Signs Date Time Temp Pulse Resp B/P (MAP) Pulse Ox O2 Delivery O2 Flow Rate FiO2 11/28/19 00:00 97.7 92 20 138/75 (96) 97 Room Air EKG EKG [] Radiology/Procedures Radiology/Procedures [] Course & Med Decision Making Course & Med Decision Making Pertinent Labs and Imaging studies reviewed. (See chart for details) For her headache, I ordered 1 L normal saline, 25 mg of Benadryl, 10 mg Reglan, and 30 mg of Toradol, 10 mg of dexamethasone. The patient's labs are unremarkable except for a slightly elevated liver enzymes which are likely due to fatty liver and a potassium of 5.2. Her labs were hemolyzed and this may account for the slightly elevated potassium. Her headache has improved. She would like to go home. She is stable for discharge at this time. [] Dragon Disclaimer Dragon Disclaimer This electronic medical record was generated, in whole or in part, using a voice recognition dictation system. Departure Departure: Impression: Primary Impression: Migraine Disposition: HOME, SELF-CARE Condition: IMPROVED Referrals: KENISHA MUÑOZ [employer] CONTR[employer]LLER[facility] (PCP) Patient Instructions: Migraine Headache, [id number] Problem Qualifiers Primary Impression: Migraine Migraine type: without aura Status migrainosus presence: without status migrainosus Intractability: intractable Qualified Codes: G43.019 - Migraine without aura, intractable, without status migrainosus LA PAIGE DO Nov 28, 2019 00:21
[2019-11-28] MEDS ORDERED: METOCLOPRAMIDE HCL 10 MG/2 ML VIAL. IVP ONE (00:30)
[2019-11-28] MEDS ORDERED: diphenhydrAMINE 50 MG/ML VIAL IVP ONE (00:30)
[2019-11-28] MEDS ORDERED: DEXAMETHASONE SOD PHOS 10 MG/ML VIAL IV ONE (00:30)
[2019-11-28] MEDS ORDERED: KETOROLAC 30 MG/ML VIAL. IVP ONE (00:30)
[2019-11-28] MEDS ORDERED: IV NORMAL SALINE 1,000ML 1,000 ML IV ONE (00:30)
[2019-11-28 01:25] LABS: CALCIUM 8.5 mg/dL (8.5-10.1); CREATININE 0.6 mg/dL (0.6-1.0); GFR 122.8; POTASSIUM 5.2 mmol/L (3.5-5.1)
[2019-11-28 01:26] LABS: BASO # 0.1 x10^3/uL (0.0-0.2); BASO % 1 % (0-3); EOS # 0.2 x10^3/uL (0.0-0.7); EOS % 2 % (0-3); HEMATOCRIT 39.4 % (36.0-47.0); HEMOGLOBIN 13.1 g/dL (12.0-15.5); LYMPH % 41 % (24-48); MEAN CORPUSCULAR HEMOGLOBIN 28 pg (25-35); MEAN CORPUSCULAR HGB CONC 33 g/dL (31-37); MEAN CORPUSCULAR VOLUME 85 fL (79-100); MONO # 0.5 x10^3/uL (0.0-1.1); MONO % 5 % (0-9); NEUT # 5.2 x10^3uL (1.8-7.7); NEUT % 53 % (31-73); PLATELET COUNT 248 x10^3/uL (140-400); RED BLOOD COUNT 4.65 x10^6/uL (3.50-5.40); RED CELL DISTRIBUTION WIDTH 13.2 % (11.5-14.5); WHITE BLOOD COUNT 9.9 x10^3/uL (4.0-11.0)
[2019-11-28 01:31] LABS: ALBUMIN 3.9 g/dL (3.4-5.0); ALBUMIN/GLOBULIN RATIO 1.2 (1.0-1.7); TOTAL BILIRUBIN 0.2 mg/dL (0.2-1.0); TOTAL PROTEIN 7.2 g/dL (6.4-8.2)
[2019-11-28 01:35] VITALS: BP 120/74
== END 2019-11-28 01:40 | disposition home or self-care (01) ==
LOC: ER 23:56
DX: G43.019 Migraine without aura, intractable, without status migrainosus (principal); J45.909 Unspecified asthma, uncomplicated; E11.9 Type 2 diabetes mellitus without complications; M79.7 Fibromyalgia; E78.00 Pure hypercholesterolemia, unspecified; G43.909 Migraine, unspecified, not intractable, without status migrainosus; F17.210 Nicotine dependence, cigarettes, uncomplicated; Z88.0 Allergy status to penicillin; Z88.2 Allergy status to sulfonamides; Z91.040 Latex allergy status; Z88.8 Allergy status to other drugs, medicaments and biological substances
CPT/HCPCS: 36415; 80053; 85025; 96374; 96375; 99284; J1100; J1200; J1885; J2765; 96361; J7030

== ENCOUNTER 2019-12-15 18:38 | Emergency (ER) | payer OTHER ==
[~2019-12-15] VITALS: Ht 149.9 cm; Wt 93.4 kg
[2019-12-15 19:25] VITALS: BP 138/90
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
[2019-12-15] MEDS ORDERED: ALBU2.5V8 INH (19:38)
[2019-12-15] MEDS ORDERED: metformin (19:38)
[2019-12-15] MEDS ORDERED: [UNRECOGNIZED DRUG - OTHER] (19:38)
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
[2019-12-15] MEDS ORDERED: ACETAMINOPHEN 500 MG TABLET PO ONE (20:15)
== END 2019-12-15 19:29 | disposition home or self-care (01) ==
LOC: ER 18:38
DX: S16.1XXA Strain of muscle, fascia and tendon at neck level, initial encounter (principal); J45.909 Unspecified asthma, uncomplicated; E11.9 Type 2 diabetes mellitus without complications; M79.7 Fibromyalgia; E78.00 Pure hypercholesterolemia, unspecified; G43.909 Migraine, unspecified, not intractable, without status migrainosus; F17.210 Nicotine dependence, cigarettes, uncomplicated; Z88.0 Allergy status to penicillin; Z88.2 Allergy status to sulfonamides; Z88.8 Allergy status to other drugs, medicaments and biological substances; Z91.040 Latex allergy status; V49.69XA Unspecified car occupant injured in collision with other motor vehicles in traffic accident, initial encounter; Y93.89 Activity, other specified; Y92.89 Other specified places as the place of occurrence of the external cause; Y99.8 Other external cause status
CPT/HCPCS: 71045; 99283

== ENCOUNTER 2020-03-01 21:04 | Emergency (ER) | payer OTHER ==
[~2020-03-01] VITALS: Ht 149.9 cm; Wt 93.4 kg
[~2020-03-01 21:04] MED LIST changes: +[UNRECOGNIZED DRUG - OTHER]; +metformin
[2020-03-01 21:14] VITALS: BP 120/72
--- NOTE | 2020-03-01 21:30 | PHYS DOC ---
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 Koch left and she ran out of her medication. She states she is here because she is very upset that her father was just diagnosed with stage IV cancer. She denies any suicidal homicidal ideation. She states she just needs something to help calm her nerves tonight. [] Review of Systems: Review of Systems: Constitutional: Denies fever or chills Eyes: Denies change in visual acuity HENT: Denies nasal congestion or sore throat Respiratory: Denies cough or shortness of breath Cardiovascular: Denies chest pain or edema GI: Denies abdominal pain, nausea, vomiting, bloody stools or diarrhea : Denies dysuria Musculoskeletal: Denies back pain or joint pain Integument: Denies rash Neurologic: Denies headache, focal weakness or sensory changes Endocrine: Denies polyuria or polydipsia Lymphatic: Denies swollen glands Psychiatric: Reports anxiety Heart Score: Risk Factors: Risk Factors: DM, Current or recent (<one month) smoker, HTN, HLP, family history of CAD, obesity. Risk Scores: Score 0 - 3: 2.5% MACE over next 6 weeks - Discharge Home Score 4 - 6: 20.3% MACE over next 6 weeks - Admit for Clinical Observation Score 7 - 10: 72.7% MACE over next 6 weeks - Early Invasive Strategies Allergies: Allergies: Allergies Coded Allergies Type Severity Reaction Last Updated Verified Penicillins Allergy Intermediate 10/31/19 No Sulfa (Sulfonamide Antibiotics) Allergy Intermediate 10/31/19 No aripiprazole Allergy Intermediate 10/31/19 No duloxetine Allergy Intermediate 10/31/19 No fluoxetine Allergy Intermediate 10/31/19 No latex Allergy Intermediate 10/31/19 No fentanyl Allergy Mild HIVES 10/31/19 No gabapentin Allergy Unknown 10/31/19 Yes Physical Exam: PE: Constitutional: Well developed, well nourished, no acute distress, non-toxic appearance. [] HENT: Normocephalic, atraumatic, bilateral external ears normal, oropharynx moist, no oral exudates, nose normal. [] Eyes: PERRLA, EOMI, conjunctiva normal, no discharge. [] Neck: Normal range of motion, no tenderness, supple, no stridor. [] Cardiovascular:Heart rate regular rhythm, no murmur [] Lungs & Thorax: Bilateral breath sounds clear to auscultation [] Abdomen: Bowel sounds normal nontender nondistended [] Skin: Warm, dry, no erythema, no rash. [] Back: No tenderness, no CVA tenderness. [] Extremities: No tenderness, no cyanosis, no clubbing, ROM intact, no edema. [] Neurologic: Alert and oriented X 3, normal motor function, normal sensory function, no focal deficits noted. [] Psychologic: Anxious] Current Patient Data: Vital Signs: Vital Signs Date Time Temp Pulse Resp B/P (MAP) Pulse Ox O2 Delivery O2 Flow Rate FiO2 03/01/20 21:14 98.8 99 20 120/72 (88) 99 Room Air EKG: EKG: [] Radiology/Procedures: Radiology/Procedures: [] Course & Med Decision Making: Course & Med Decision Making Pertinent Labs and Imaging studies reviewed. (See chart for details) [ED course: Evaluation reveals a 24-year-old female who is extremely anxious. I explained to her that I would not prescribe benzodiazepines because she is but also educated her on the danger of not tapering off of this medication in appropriate fashion. She states she can get an appointment with an OB doctor in the next day or so.] Balwinder Disclaimer: Balwinder Disclaimer: This electronic medical record was generated, in whole or in part, using a voice recognition dictation system. Departure Departure: Impression: Primary Impression: Anxiety Disposition: 01 HOME/RESIDENCE PRIOR TO ADM Condition: STABLE Referrals: PCP,VIVIANA (PCP) Patient Instructions: Anxiety and Panic Attacks Additional Instructions: It is imperative that you follow-up with your OB doctor in the next 1 to 2 days. You cannot stop your alprazolam cold turkey your OB doctor will need to taper you off of this medication in an appropriate fashion. PEÑA FERREIRA DO March 01, 2020 21:30
[2020-03-01] MEDS ORDERED: ALPRAZolam 0.25 MG TABLET PO ONE (22:00)
== END 2020-03-01 22:00 | disposition home or self-care (01) ==
LOC: ER 21:04
DX: O99.341 Other mental disorders complicating pregnancy, first trimester (principal); F41.9 Anxiety disorder, unspecified; O99.512 Diseases of the respiratory system complicating pregnancy, second trimester; J45.909 Unspecified asthma, uncomplicated; O24.911 Unspecified diabetes mellitus in pregnancy, first trimester; M79.7 Fibromyalgia; E78.00 Pure hypercholesterolemia, unspecified; G43.909 Migraine, unspecified, not intractable, without status migrainosus; O99.331 Smoking (tobacco) complicating pregnancy, first trimester; Z3A.13 13 weeks gestation of pregnancy; Z88.0 Allergy status to penicillin; Z88.2 Allergy status to sulfonamides; Z91.040 Latex allergy status; Z88.8 Allergy status to other drugs, medicaments and biological substances
CPT/HCPCS: 99283

== ENCOUNTER 2020-06-26 15:50 | Emergency (ER) | payer OTHER ==
[~2020-06-26] VITALS: Ht 149.9 cm; Wt 91.2 kg
[2020-06-26 16:00] VITALS: BP 163/83
--- NOTE | 2020-06-26 16:13 | PHYS DOC ---
Past History Past Medical History: Anxiety, Asthma, Bronchitis, Diabetes, Fibromyalgia, High Cholesterol, Migraines, Other Additional Past Medical Histor: PCOS Past Surgical History: Appendectomy, , Tonsillectomy, Other Additional Past Surgical Histo: esophageal dilation Smoking: Cigarettes Alcohol Use: None Drug Use: None General Adult EDM: Chief Complaint: KNEE INJURY HPI: HPI: Patient is a 25-year-old G8, P2 almost 29-week female presents with atraumatic right knee pain for the last 3 to 4 days. Patient denies any pain in her calf or thigh but has knee pain is worse with range of motion and palpation. Patient denies any fevers chills cough shortness of breath. Patient denies any abdominal complaints of pain or bleeding. Patient states she has been cleaning a lot at home and they have overdone it and injured his knee that way. Patient is taken Tylenol for pain pain is moderate at rest and severe with movement and palpation. Review of Systems: Review of Systems: Constitutional: Denies fever or chills Eyes: Denies change in visual acuity HENT: Denies nasal congestion or sore throat Respiratory: Denies cough or shortness of breath Cardiovascular: Denies chest pain or edema GI: Denies abdominal pain, nausea, vomiting, bloody stools or diarrhea : Denies dysuria Musculoskeletal: Denies back pain but complains of right knee pain Integument: Denies rash Neurologic: Denies headache, focal weakness or sensory changes Endocrine: Denies polyuria or polydipsia Lymphatic: Denies swollen glands Psychiatric: Denies depression or anxiety Heart Score: Risk Factors: Risk Factors: DM, Current or recent (<one month) smoker, HTN, HLP, family hist ory of CAD, obesity. Risk Scores: Score 0 - 3: 2.5% MACE over next 6 weeks - Discharge Home Score 4 - 6: 20.3% MACE over next 6 weeks - Admit for Clinical Observation Score 7 - 10: 72.7% MACE over next 6 weeks - Early Invasive Strategies Allergies: Allergies: Allergies Coded Allergies Type Severity Reaction Last Updated Verified Penicillins Allergy Intermediate 10/31/19 No Sulfa (Sulfonamide Antibiotics) Allergy Intermediate 10/31/19 No aripiprazole Allergy Intermediate 10/31/19 No duloxetine Allergy Intermediate 10/31/19 No fluoxetine Allergy Intermediate 10/31/19 No latex Allergy Intermediate 10/31/19 No fentanyl Allergy Mild HIVES 10/31/19 No gabapentin Allergy Unknown 10/31/19 Yes Physical Exam: PE: Constitutional: Well developed, well nourished, no acute distress, non-toxic appearance. [] HENT: Normocephalic, atraumatic, bilateral external ears normal, no trismus nose normal. [] Eyes: PERRLA, EOMI, conjunctiva normal, no discharge. [] Neck: Normal range of motion, no tenderness, supple, no stridor. [] Cardiovascular:Heart rate regular rhythm, peripheral pulses are intact, cap refill is brisk Lungs & Thorax: Bilateral breath sounds clear, no respiratory distress Abdomen: Gravid uterus nontender Skin: Warm, dry, no erythema, no rash. [] Back: No tenderness, no CVA tenderness. [] Extremities: Mild tenderness to the right medial knee without erythema warmth or effusion. Limited range of motion due to pain, neurovascular intact distally Neurologic: Alert and oriented X 3, normal motor function, normal sensory function, no focal deficits noted. [] Psychologic: Affect normal, judgement normal, mood normal. [] EKG: EKG: [] Radiology/Procedures: Radiology/Procedures: [] Course & Med Decision Making: Course & Med Decision Making Pertinent Labs and Imaging studies reviewed. (See chart for details) [] 29-week female presents with atraumatic right knee pain. Patient has no calf pain or thigh pain to suggest DVT. No evidence of septic arthritis. Most likely patient is knee strain. Discussed with patient heating pads Rafael wrap and Tylenol and immobilization. Return precautions given. Balwinder Disclaimer: Balwinder Disclaimer: This electronic medical record was generated, in whole or in part, using a voice recognition dictation system. Departure Departure: Impression: Primary Impression: Right knee sprain Disposition: HOME/RESIDENCE PRIOR TO ADM Condition: STABLE Referrals: PCP,NO (PCP) KIMMIE URIBE MD 2-3 days Additional Instructions: EMERGENCY DEPARTMENT GENERAL DISCHARGE INSTRUCTIONS THANK YOU for coming to [facility] Emergency Department (ED) today and trusting us with your care. We trust that you had a positive experience in our Emergency Department. If you wish to speak to the department Management you can contact the emergency department at YOUR FOLLOW UP INSTRUCTIONS ARE FOLLOWS: Do you have a private doctor? If you do not have a private doctor, please ask for a resource list of physicians or clinics that may be able to assist you with follow up care. The Emergency Physician has interpreted your x-rays. The X-ray specialist will also review them. If there is a change in the findings you will be notified in 48 hours when at all possible. A lab test or lab culture may have been done, your results will be reviewed and you will be notified if you need a change in treatment. ADDITIONAL INSTRUCTIONS AND INFORMATION Your care today has been supervised by a physician who is specially trained in emergency care. Many problems require more than one evaluation for a complete diagnosis and treatment. We recommend that you schedule your follow up appointment as recommended to ensure complete treatment of your illness or injury. If you are unable to obtain follow up care and continue to have a problem, or if your condition worsens we recommend that you return to the ED. We are not able to safely determine your condition over the phone nor are we able to give sound medical advice over the phone. For these safety reasons, if you call for medical advice we will ask you to come to the ED for further evaluation If you have any questions regarding these discharge instructions please call the ED at . SAFETY INFORMATION In the interest of safety, wellness, and injury prevention; we encourage you to wear your seatbelt, if you smoke; quit smoking, and we encourage your family to use protective helmet for bicycling and other sporting events that present an increased risk for head injury. IF YOUR SYMPTOMS WORSEN OR NEW SYMPTOMS DEVELOP, OR YOU HAVE CONCERNS ABOUT YOUR CONDITION; OR IF YOUR CONDITION WORSENS WHILE YOU ARE WAITING FOR YOUR FOLLOW UP APPOINTMENT; EITHER CONTACT YOUR PRIMARY CARE DOCTOR, THE PHYSICIAN WHOSE NAME AND NUMBER YOU WERE GIVEN, OR RETURN TO THE ED IMMEDIATELY. Wear the Rafael wrap and use Tylenol for pain Justification of Admission: Justification of Admission: Justification of Admission Dx: N/A JUAN OLIVO MD Jun 26, 2020 16:12
== END 2020-06-26 16:19 | disposition home or self-care (01) ==
LOC: ER 15:50
DX: O9A.213 Injury, poisoning and certain other consequences of external causes complicating pregnancy, third trimester (principal); S83.91XA Sprain of unspecified site of right knee, initial encounter; O99.513 Diseases of the respiratory system complicating pregnancy, third trimester; J45.909 Unspecified asthma, uncomplicated; O24.913 Unspecified diabetes mellitus in pregnancy, third trimester; M79.7 Fibromyalgia; E78.00 Pure hypercholesterolemia, unspecified; G43.909 Migraine, unspecified, not intractable, without status migrainosus; F17.210 Nicotine dependence, cigarettes, uncomplicated; E28.2 Polycystic ovarian syndrome; Z3A.29 29 weeks gestation of pregnancy; Z88.0 Allergy status to penicillin; Z88.2 Allergy status to sulfonamides; Z91.040 Latex allergy status; Z88.8 Allergy status to other drugs, medicaments and biological substances; X58.XXXA Exposure to other specified factors, initial encounter; Y93.89 Activity, other specified; Y92.89 Other specified places as the place of occurrence of the external cause; Y99.8 Other external cause status
CPT/HCPCS: 99283

== ENCOUNTER 2020-07-06 20:23 | Emergency (ER) | payer OTHER | END 2020-07-06 20:24 | disposition left against medical advice (07) | LOC: ER 20:23 | DX: S09.90XA Unspecified injury of head, initial encounter (principal); Z53.21 Procedure and treatment not carried out due to patient leaving prior to being seen by health care provider; W23.0XXA Caught, crushed, jammed, or pinched between moving objects, initial encounter; Y93.89 Activity, other specified; Y92.89 Other specified places as the place of occurrence of the external cause; Y99.8 Other external cause status ==

== ENCOUNTER 2020-10-02 18:34 | Emergency (ER) | payer OTHER ==
[~2020-10-02] VITALS: Ht 149.9 cm; Wt 84.7 kg
[2020-10-02] MEDS ORDERED: IBUP600T16 PO (18:57)
[2020-10-02] MEDS ORDERED: CYCL-331 PO (18:57)
--- NOTE | 2020-10-02 18:58 | PHYS DOC ---
Past History Past Medical History: Anxiety, Bipolar, Depression, Diabetes Additional Past Medical Histor: PCOS Past Surgical History: Appendectomy, , Tonsillectomy Additional Past Surgical Histo: esophageal dilation Smoking: Cigarettes Alcohol Use: None Drug Use: None Adult General HPI HPI Patient is a 25-year-old patient reports emergency department complaining of left-sided back pain after lifting her child up this morning. Patient states back pain is a 10/10 1-10 pain scale, that she associates it is more of a burning sensation that travels down her left buttock and down to the mid rear thigh area. Patient states she has a history of sciatica and she believes that she has reaggravated her sciatica as this feels similar to her previous sciatica exacerbations. Patient states that she did have a on September 06, has not had sex since then and therefore cannot be , patient states that she was somewhere around the end of October 2019. Patient does not have any numbness or tingling down her left extremity. Patient denies any injury to her low back. Patient denies any midline spinal tenderness. Patient denies any recent fever or chills, denies any rash to her skin, denies any visual changes, denies nausea vomiting diarrhea demise abdominal pains. Denies any urinary tract infection signs and symptoms. Denies any vaginal discharge, denies STI concerns. Patient denies any loss of bowel or bladder. Review of Systems Review of Systems 14 body systems of review of systems have been reviewed. See HPI for pertinent positives and negative responses, otherwise all other systems are negative, nonpertinent or noncontributory. Current Medications Current Medications Patient reports she does not take any prescription medications at this time. Current Medications Medications (Trade) Dose Ordered Sig/[facility] Start Time Stop Time Status Last Admin Dose Admin Acetaminophen/ Hydrocodone Bitart (Lortab 5/325) 1 tab 1X ONCE 10/02/20 18:45 10/02/20 18:46 UNV Cyclobenzaprine HCl (Flexeril) 10 mg 1X ONCE 10/02/20 18:45 10/02/20 18:46 UNV Ketorolac Tromethamine (Toradol Im) 60 mg 1X ONCE 10/02/20 18:45 10/02/20 18:46 UNV Methylprednisolone Acetate (DEPO-Medrol IM) 80 mg 1X ONCE 10/02/20 18:45 10/02/20 18:46 UNV Allergies Allergies Allergies Coded Allergies Type Severity Reaction Last Updated Verified Penicillins Allergy Intermediate 10/31/19 No Sulfa (Sulfonamide Antibiotics) Allergy Intermediate 10/31/19 No aripiprazole Allergy Intermediate 10/31/19 No duloxetine Allergy Intermediate 10/31/19 No fluoxetine Allergy Intermediate 10/31/19 No latex Allergy Intermediate 10/31/19 No fentanyl Allergy Mild HIVES 10/31/19 No gabapentin Allergy Unknown 10/31/19 Yes Physical Exam Physical Exam Constitutional: Well developed, well nourished, no acute distress, non-toxic appearance. [] HENT: Normocephalic, atraumatic, bilateral external ears normal, oropharynx moist, no oral exudates, nose normal. [] Eyes: PERRLA, EOMI, conjunctiva normal, no discharge. [] Neck: Normal range of motion, no tenderness, supple, no stridor. [] Cardiovascular:Heart rate regular rhythm, no murmur [] Lungs & Thorax: Bilateral breath sounds clear to auscultation [] Abdomen: Bowel sounds normal, soft, no tenderness, no masses, no pulsatile masses. [] Skin: Warm, dry, no erythema, no rash. [] Back: No CVA tenderness, tenderness to palpation left lumbar area radiates down left buttocks and down to left anterior thigh midshaft area. No erythema,, no deformity, no swelling, no edema appreciated, distal cap refill less than 2 seconds, 2+ dorsalis pedis/posterior tibial pulses. No loss of sensation, neurovascular intact at exam time. Extremities: No tenderness, no cyanosis, no clubbing, ROM intact, no edema. [] Neurologic: Alert and oriented X 3, normal motor function, normal sensory function, no focal deficits noted. [] Psychologic: Affect normal, judgement normal, mood normal. [] EKG EKG [] Radiology/Procedures Radiology/Procedures [] Heart Score Risk Factors: Risk Factors: DM, Current or recent (<one month) smoker, HTN, HLP, family history of CAD, obesity. Risk Scores: Risk Factors: DM, Current or recent (<one month) smoker, HTN, HLP, family history of CAD, obesity. Course & Med Decision Making Course & Med Decision Making Pertinent Labs and Imaging studies reviewed. (See chart for details) 25-year-old patient reports emergency department complaining of sciatica pain after lifting her child up earlier today. Patient has had similar exacerbations of sciatica pain. Physical examination was consistent with sciatica exace rbation. Patient has no saddle anesthesia, no loss of bowel or bladder, no signs of cauda equina. No midline spinal tenderness appreciated. Patient will be given p.o. Flexeril, IM Toradol, p.o. 5325 milligram [place] 1 tablet, IM Depo-Medrol in the emergency department. Patient will be discharged home with prescription for Flexeril, 600 mg ibuprofen. Patient to follow-up with primary care physician for reexamination if pain persists, return to ER precautions were given, patient had no further questions or concerns, patient discharged home without incident. Dragon Disclaimer Dragon Disclaimer This electronic medical record was generated, in whole or in part, using a voice recognition dictation system. Departure Departure: Impression: Primary Impression: Sciatica of left side Disposition: 01 DC HOME SELF CARE/HOMELESS Condition: IMPROVED Referrals: PCP,UNKNOWN (PCP) Patient Instructions: Sciatica Additional Instructions: Please take prescriptions as directed, follow-up with your doctor for reevaluation of your back pain, return to the emergency department for worsening symptoms or further concerns. EMERGENCY DEPARTMENT GENERAL DISCHARGE INSTRUCTIONS Thank you for coming to [facility] (ED) today and trusting us with you care. We trust that you had a positivie experience in our Emergency Department. If you wish to speak to the department management, you may call the director at [phone]. YOUR FOLLOW UP INSTRUCTIONS ARE FOLLOWS: 1. Do you have a private Doctor? If you do not have a private doctor, please ask for a resource list of physicians or clinics that may be able to assist you with follow up care. 2. The Emergency Physician has interpreted your x-rays. The X-Ray specialist will also review them. If there is a change in the findings, you will be notified in 48 hours when at all possible. 3. A lab test or culture has been done, your results will be reviewed and you will be notified if you need a change in treatment. ADDITIONAL INSTRUCTIONS AND INFORMATION: 1. Your care today has been supervised by a physician who is specially trained in emergency care. Many problems require more than one evaluation for a complete diagnosis and treatment. We recommend that you schedule your follow up appointment as recommended to ensure complete treatment of you illness or injury. If you are unable to obtain follow up care and continue to have a problem, or if your condition worsens, we recommend that you return to the ED. 2. We are not able to safely determine your condition over the phone nor are we able to give sound medical advice over the phone. For these safety reasons, if you call for medical advice we will ask you to come to the ED for further evaluation. 3. If you have any questions regarding these discharge instructions please call the ED at [phone]. SAFETY INFORMATION: In the interest of safety, wellness, and injury prevention; we encourage you to wear your sealbelt, if you smoke; quite smoking, and we encourage family to use a protective helmet for bicycling and other sporting events that present an increased risk for head injury. IF YOUR SYMPTOMS WORSEN OR NEW SYMPTOMS DEVELOP, OR YOU HAVE CONCERNS ABOUT YOUR CONDITION; OR IF YOUR CONDITION WORSENS WHILE YOU ARE WAITING FOR YOUR FOLLOW UP APPOINTMENT; EITHER CONTACT YOUR PRIMARY CARE DOCTOR, THE PHYSICIAN WHOSE NAME AND NUMBER YOU WERE GIVEN, OR RETURN TO THE ED IMMEDIATELY. Scripts Ibuprofen (IBUPROFEN) 600 Mg Tablet 600 MG PO TID PRN for BACK PAIN, #20 TAB 0 Refills Prov: AUDELIA TREVIÑO APRN 10/02/20 Cyclobenzaprine Hcl (CYCLOBENZAPRINE HCL) 10 Mg Tablet 1 TAB PO TID PRN PRN for PAIN, #12 TAB 0 Refills Prov: AUDELIA TREVIÑO APRN 10/02/20 AUDELIA TREVIÑO APRN Oct 02, 2020 18:58
[2020-10-02] MEDS ORDERED: HYDROcodone/APAP 5/325MG 1 TAB TABLET PO ONE (19:00)
[2020-10-02] MEDS ORDERED: CYCLOBENZAPRINE 10 MG TABLET. PO ONE (19:00)
[2020-10-02] MEDS ORDERED: methylPREDNISolone ACETATE 80 MG/ML VIAL. IM ONE (19:00)
[2020-10-02] MEDS ORDERED: KETOROLAC 60 MG/2 ML VIAL. IM ONE (19:00)
[2020-10-02 19:30] VITALS: BP 117/78
== END 2020-10-02 19:30 | disposition home or self-care (01) ==
LOC: ER 18:34
DX: M54.42 Lumbago with sciatica, left side (principal); F41.9 Anxiety disorder, unspecified; F31.9 Bipolar disorder, unspecified; E11.9 Type 2 diabetes mellitus without complications; F17.210 Nicotine dependence, cigarettes, uncomplicated; E28.2 Polycystic ovarian syndrome; Z90.49 Acquired absence of other specified parts of digestive tract; Z98.890 Other specified postprocedural states; Z88.0 Allergy status to penicillin; Z88.2 Allergy status to sulfonamides; Z91.040 Latex allergy status; Z88.8 Allergy status to other drugs, medicaments and biological substances
CPT/HCPCS: 96372; 99284; J1040; J1885

== ENCOUNTER 2020-11-07 14:33 | Emergency (ER) | payer OTHER ==
[~2020-11-07] VITALS: Ht 149.9 cm; Wt 89.7 kg
[~2020-11-07 14:33] MED LIST changes: +IBUP600T16 PO
--- NOTE | 2020-11-07 14:55 | PHYS DOC ---
Past History Past Medical History: Anxiety, Bipolar, Depression, Diabetes Additional Past Medical Histor: PCOS (ROJELIO WISE APRN) Past Surgical History: Appendectomy, , Tonsillectomy, Tubal ligation Additional Past Surgical Histo: esophageal dilation (ROJELIO WISE APRN) Smoking: Cigarettes Alcohol Use: None Drug Use: None (ROJELIO WISE APRN) General Adult EDM: Chief Complaint: ANXIETY/PANIC ATTACK HPI: HPI: Patient is a 25-year-old female who presents with anxiety and chest pain. Patient states that the chest pain started last night and that has been coming and going. Patient describes pain as a heavy, achy. Patient denies taking anything for the pain. Patient states that she has a history of anxiety and depression. Patient states that she normally has a prescription for Xanax but has been dealing with some chronic back pain and her PCP does not want her to have narcotics with Xanax. Denies SI or HI. Denies nausea/vomiting. Denies recent illness. (ROJELIO WISE APRN) Review of Systems: Review of Systems: Constitutional: Denies fever or chills Eyes: Denies change in visual acuity HENT: Denies nasal congestion or sore throat Respiratory: Denies cough or shortness of breath Cardiovascular: Reports chest pain, heaviness GI: Denies abdominal pain, nausea, vomiting, bloody stools or diarrhea : Denies dysuria Musculoskeletal: Denies back pain or joint pain Integument: Denies rash Neurologic: Denies headache, focal weakness or sensory changes Endocrine: Denies polyuria or polydipsia Lymphatic: Denies swollen glands Psychiatric: Reports depression, anxiety, bipolar disorder. (ROJELIO WISE APRN) Allergies: Allergies: Allergies Coded Allergies Type Severity Reaction Last Updated Verified Penicillins Allergy Intermediate 11/07/20 No Sulfa (Sulfonamide Antibiotics) Allergy Intermediate 11/07/20 No aripiprazole Allergy Intermediate 11/07/20 No duloxetine Allergy Intermediate 11/07/20 No fluoxetine Allergy Intermediate 11/07/20 No latex Allergy Intermediate 11/07/20 No fentanyl Allergy Mild HIVES 10/31/19 No gabapentin Allergy Unknown 10/31/19 Yes (ROJELIO WISE APRN) Physical Exam: PE: Constitutional: Well developed, well nourished, no acute distress, non-toxic appearance. [] HENT: Normocephalic, atraumatic, bilateral external ears normal, oropharynx moist, no oral exudates, nose normal. [] Eyes: PERRLA, EOMI, conjunctiva normal, no discharge. [] Neck: Normal range of motion, no tenderness, supple, no stridor. [] Cardiovascular:Heart rate regular rhythm, no murmur [] Lungs & Thorax: Bilateral breath sounds clear to auscultation [] Abdomen: Bowel sounds normal, soft, no tenderness, no masses, no pulsatile masses. [] Skin: Warm, dry, no erythema, no rash. [] Back: No tenderness, no CVA tenderness. [] Extremities: No tenderness, no cyanosis, no clubbing, ROM intact, no edema. [] Neurologic: Alert and oriented X 3, normal motor function, normal sensory function, no focal deficits noted. [] Psychologic: Affect normal, judgement normal, mood anxious (ROJELIO WISE APRN) Current Patient Data: Vital Signs: Vital Signs Date Time Temp Pulse Resp B/P (MAP) Pulse Ox O2 Delivery O2 Flow Rate FiO2 11/07/20 14:40 98.1 96 16 141/80 (100) 98 Room Air (ROJELIO WISE APRN) EKG: EKG: Sinus rhythm, normal EKG. Intervals normal, axis normal. Heart rate 95 bpm. Otherwise normal EKG. [] (ROJELIO WISE APRN) Radiology/Procedures: Radiology/Procedures: [] (ROJELIO WISE APRN) Heart Score: Risk Factors: Risk Factors: DM, Current or recent (<one month) smoker, HTN, HLP, family history of CAD, obesity. Risk Scores: Score 0 - 3: 2.5% MACE over next 6 weeks - Discharge Home Score 4 - 6: 20.3% MACE over next 6 weeks - Admit for Clinical Observation Score 7 - 10: 72.7% MACE over next 6 weeks - Early Invasive Strategies (ROJELIO WISE APRN) Course & Med Decision Making: Course & Med Decision Making Pertinent Labs and Imaging studies reviewed. (See chart for details) [] Patient is a 25-year-old female who presents with anxiety and chest pain. Patient states that the chest pain started last night and that has been coming and going. Patient describes pain as a heavy, achy. Patient denies taking anything for the pain. Patient states that she has a history of anxiety and depression. Patient states that she normally has a prescription for Xanax but has been dealing with some chronic back pain and her PCP does not want her to have narcotics with Xanax. Denies SI or HI. Denies nausea/vomiting. Denies recent illness. EKG ordered to rule out cardiac arrhythmia. CBC, CMP, UA ordered. Patient given 1 of Ativan to treat anxiety. Will reassess patient. Patient's anxiety has improved. Patient will discharge home and follow-up with her primary care regarding further management. And is hemodynamically stable and able to ambulate on her own out of the emergency room. (ROJELIO WISE APRN) Dragon Disclaimer: Dragon Disclaimer: This electronic medical record was generated, in whole or in part, using a voice recognition dictation system. (ROJELIO WISE APRN) Departure Departure: Impression: Primary Impression: Anxiety Additional Impression: Chest pain Qualified Codes: R07.9 - Chest pain, unspecified Disposition: 01 DC HOME SELF CARE/HOMELESS Condition: GOOD Referrals: PCP,UNKNOWN (PCP) Patient Instructions: Anxiety and Panic Attacks, [id number] Additional Instructions: You were seen in the emergency room today for chest pain and anxiety. All of your lab work, EKG, chest x-ray came back unremarkable. We gave you Ativan in the emergency room which helped with your anxiety. You will need to follow-up with your primary care for further management of your anxiety. EMERGENCY DEPARTMENT GENERAL DISCHARGE INSTRUCTIONS Thank you for coming to [facility] (ED) today and trusting us with you care. We trust that you had a positivie experience in our Emergency Department. If you wish to speak to the department management, you may call the director at [phone]. YOUR FOLLOW UP INSTRUCTIONS ARE FOLLOWS: 1. Do you have a private Doctor? If you do not have a private doctor, please ask for a resource list of physicians or clinics that may be able to assist you with follow up care. 2. The Emergency Physician has interpreted your x-rays. The X-Ray specialist will also review them. If there is a change in the findings, you will be notified in 48 hours when at all possible. 3. A lab test or culture has been done, your results will be reviewed and you will be notified if you need a change in treatment. ADDITIONAL INSTRUCTIONS AND INFORMATION: 1. Your care today has been supervised by a physician who is specially trained in emergency care. Many problems require more than one evaluation for a complete diagnosis and treatment. We recommend that you schedule your follow up appointment as recommended to ensure complete treatment of you illness or injury. If you are unable to obtain follow up care and continue to have a problem, or if your condition worsens, we recommend that you return to the ED. 2. We are not able to safely determine your condition over the phone nor are we able to give sound medical advice over the phone. For these safety reasons, if you call for medical advice we will ask you to come to the ED for further evaluation. 3. If you have any questions regarding these discharge instructions please call the ED at [phone]. SAFETY INFORMATION: In the interest of safety, wellness, and injury prevention; we encourage you to wear your sealbelt, if you smoke; quite smoking, and we encourage family to use a protective helmet for bicycling and other sporting events that present an increased risk for head injury. IF YOUR SYMPTOMS WORSEN OR NEW SYMPTOMS DEVELOP, OR YOU HAVE CONCERNS ABOUT YOUR CONDITION; OR IF YOUR CONDITION WORSENS WHILE YOU ARE WAITING FOR YOUR FOLLOW UP APPOINTMENT; EITHER CONTACT YOUR PRIMARY CARE DOCTOR, THE PHYSICIAN WHOSE NAME AND NUMBER YOU WERE GIVEN, OR RETURN TO THE ED IMMEDIATELY. Attending Signature Attending Signature I have reviewed the PA/ASSISTANT TODDLER TEACHER's note and plan of care. I was available for consultation as needed during the patient's visit in the emergency department. I agree with the clinical impression, plan, and disposition. (AUDELIA RENEE DO) ROJELIO WIES APRN Nov 07, 2020 14:54 AUDELIA RENEE DO Nov 08, 2020 00:30
[2020-11-07 15:33] LABS: BASO % 1 % (0-3); EOS # 0.2 x10^3/uL (0.0-0.7); EOS % 3 % (0-3); HEMOGLOBIN 13.5 g/dL (12.0-15.5); LYMPH # 2.5 x10^3/uL (1.0-4.8); LYMPH % 32 % (24-48); MEAN CORPUSCULAR HEMOGLOBIN 29 pg (25-35); MEAN CORPUSCULAR HGB CONC 34 g/dL (31-37); MEAN CORPUSCULAR VOLUME 85 fL (79-100); MONO # 0.4 x10^3/uL (0.0-1.1); MONO % 5 % (0-9); NEUT # 4.6 x10^3uL (1.8-7.7); NEUT % 59 % (31-73); PLATELET COUNT 226 x10^3/uL (140-400); RED BLOOD COUNT 4.72 x10^6/uL (3.50-5.40); RED CELL DISTRIBUTION WIDTH 15.1 % (11.5-14.5); WHITE BLOOD COUNT 7.7 x10^3/uL (4.0-11.0)
[2020-11-07 15:36] LABS: CALCIUM 9.1 mg/dL (8.5-10.1); CREATININE 0.9 mg/dL (0.6-1.0); GFR 76.3; POTASSIUM 3.5 mmol/L (3.5-5.1)
[2020-11-07 15:41] LABS: ALBUMIN 4.1 g/dL (3.4-5.0); ALBUMIN/GLOBULIN RATIO 1.1 (1.0-1.7); TOTAL BILIRUBIN 0.2 mg/dL (0.2-1.0); TOTAL PROTEIN 7.9 g/dL (6.4-8.2)
--- NOTE | 2020-11-07 16:00 | RAD ---
Exam: Chest one view INDICATION: Chest pain TECHNIQUE: Frontal view of the chest Comparisons: 12/15/2019 FINDINGS: The cardiomediastinal silhouette and pulmonary vessels are within normal limits. The lung and pleural spaces are clear. IMPRESSION: No acute cardiopulmonary process. Electronically signed by: Walter Rehman MD (11/07/2020 3:57 PM) SEUN
[2020-11-07 16:23] LABS: BILIRUBIN,URINE NEG (NEG); CLARITY,URINE CLEAR; COLOR,URINE AMBER; GLUCOSE,URINE NEG (NEG); NITRITE,URINE NEG (NEG); UROBILINOGEN,URINE 0.2 mg/dL (0.2 mg/dL)
[2020-11-07 16:24] LABS: BACTERIA,URINE 0 /HPF (0-FEW); RBC,URINE RARE /HPF (0-2); SQUAMOUS EPITHELIAL CELL,UR MOD /LPF; WBC,URINE 0 /HPF (0-4)
--- NOTE | 2020-11-07 16:27 | EKG ---
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
[2020-11-07 16:30] VITALS: BP 114/67
== END 2020-11-07 16:44 | disposition home or self-care (01) ==
LOC: ER 14:33
DX: F41.9 Anxiety disorder, unspecified (principal); R07.89 Other chest pain; F31.9 Bipolar disorder, unspecified; E11.9 Type 2 diabetes mellitus without complications; E28.2 Polycystic ovarian syndrome; F17.210 Nicotine dependence, cigarettes, uncomplicated; Z90.89 Acquired absence of other organs; Z98.890 Other specified postprocedural states; Z98.51 Tubal ligation status; Z88.0 Allergy status to penicillin; Z88.2 Allergy status to sulfonamides; Z91.040 Latex allergy status; Z88.8 Allergy status to other drugs, medicaments and biological substances
CPT/HCPCS: 36415; 71045; 80053; 81001; 81025; 84484; 85025; 85379; 93005; 96374; 99285; J2060

== ENCOUNTER 2020-12-19 00:38 | Emergency (ER) | payer OTHER ==
[~2020-12-19] VITALS: Ht 149.9 cm; Wt 94.0 kg
--- NOTE | 2020-12-19 00:40 | PHYS DOC ---
Past History Past Medical History: Anxiety, Bipolar, Depression, Diabetes Additional Past Medical Histor: PCOS Past Surgical History: Appendectomy, , Tonsillectomy, Tubal ligation Additional Past Surgical Histo: esophageal dilation Smoking: Cigarettes Alcohol Use: None Drug Use: None General Adult HPI: HPI: ".. I ve had anxiety for ever.. I recent. ..had some my anxiety meds changes around.. and I got a flu test yesterday and COVID test with my doctor yesterday... since I had some congestion.. my flu was negative.. but I will not know my COVID test will be until later this week.. and I ve been laying awake all night .. Patient is a 25 year old female who presents with above hx and complaints of anxiety. Patient's vitals are normal. Patient has no fever or chills. Patient has very mild nasal congestion. No history of travel. No specific ill contacts. Patient does have a long history of anxiety disorder. Patient has worked herself to state of panic over possibly having a positive Covid test. Patient recently quit taking her benzodiazepines for anxiety. Pt. has recently had some changes and her psychiatric meds. Patient currently extremely anxious about possible Covid results in the next several days. Review of Systems: Review of Systems: Constitutional: Denies fever or chills Eyes: Denies change in visual acuity HENT: Complaints of nasal congestion . Respiratory: Denies cough or shortness of breath Cardiovascular: Denies chest pain or edema GI: Denies abdominal pain, nausea, vomiting, bloody stools or diarrhea : Denies dysuria Musculoskeletal: Denies back pain or joint pain Integument: Denies rash Neurologic: Denies headache, focal weakness or sensory changes Endocrine: Denies polyuria or polydipsia Lymphatic: Denies swollen glands Psychiatric: Complains of anxiety Family History: Family History: See nursing for home meds Current Medications: Current Meds: See nursing for home meds Allergies: Allergies: Allergies Coded Allergies Type Severity Reaction Last Updated Verified Penicillins Allergy Intermediate 11/07/20 No Sulfa (Sulfonamide Antibiotics) Allergy Intermediate 11/07/20 No aripiprazole Allergy Intermediate 11/07/20 No duloxetine Allergy Intermediate 11/07/20 No fluoxetine Allergy Intermediate 11/07/20 No latex Allergy Intermediate 11/07/20 No fentanyl Allergy Mild HIVES 10/31/19 No gabapentin Allergy Unknown 10/31/19 Yes Physical Exam: PE: Constitutional: In acute emotional distress, non-toxic appearance. [] HENT: Normocephalic, atraumatic, bilateral external ears normal, oropharynx moist, no oral exudates, nose mild nasal congestion with clear rhinorrhea. [] Eyes: PERRLA, EOMI, conjunctiva normal, no discharge. [] Neck: Normal range of motion, no tenderness, supple, no stridor. [] Cardiovascular:Heart rate regular rhythm, no murmur [] Lungs & Thorax: Bilateral breath sounds are apex with scattered wheezes on Auscultation [] Abdomen: Bowel sounds normal, soft, no tenderness, no masses, no pulsatile masses. Obese Skin: Warm, dry, no erythema, no rash. [] Back: No tenderness, no CVA tenderness. [] Extremities: No tenderness, no cyanosis, no clubbing, ROM intact, no edema. [] Neurologic: Alert and oriented X 3, normal motor function, normal sensory function, no focal deficits noted. [] Psychologic: Affect extremely anxious, judgement normal, mood normal. [] EKG: EKG: [] Radiology/Procedures: Radiology/Procedures: [] Heart Score: C/O Chest Pain: N/A Risk Factors: Risk Factors: DM, Current or recent (<one month) smoker, HTN, HLP, family history of CAD, obesity. Risk Scores: Score 0 - 3: 2.5% MACE over next 6 weeks - Discharge Home Score 4 - 6: 20.3% MACE over next 6 weeks - Admit for Clinical Observation Score 7 - 10: 72.7% MACE over next 6 weeks - Early Invasive Strategies Course & Med Decision Making: Course & Med Decision Making Pertinent Labs and Imaging studies reviewed. (See chart for details) Patient wear a mask covering her nose and mouth at all times to have her interaction with others. Take Tylenol and ibuprofen for discomfort. Patient discussed with her doctor other meds that she may take for her anxiety exacerbations. Patient follow-up primary care. Patient return if any concerns. Impression: 1. Anxiety-over Covid testing yesterday. [] [place] Disclaimer: Dragon Disclaimer: This electronic medical record was generated, in whole or in part, using a voice recognition dictation system. Departure Departure: Referrals: PCP,UNKNOWN (PCP) Dragon Disclaimer This chart was dictated in whole or in part using Voice Recognition software in a busy, high-work load, and often noisy Emergency Department environment. It may contain unintended and wholly unrecognized errors or omissions. Dragon Disclaimer This chart was dictated in whole or in part using Voice Recognition software in a busy, high-work load, and often noisy Emergency Department environment. It may contain unintended and wholly unrecognized errors or omissions. Dragon Disclaimer This chart was dictated in whole or in part using Voice Recognition software in a busy, high-work load, and often noisy Emergency Department environment. It may contain unintended and wholly unrecognized errors or omissions. XOCHITL STREETER MD Dec 19, 2020 00:40
[2020-12-19 01:30] VITALS: BP 137/83
[2020-12-19] MEDS ORDERED: LORazepam 1 MG TABLET PO ONE (01:30)
== END 2020-12-19 01:30 | disposition home or self-care (01) ==
LOC: ER 00:38
DX: F41.9 Anxiety disorder, unspecified (principal); F31.9 Bipolar disorder, unspecified; E11.9 Type 2 diabetes mellitus without complications; F17.210 Nicotine dependence, cigarettes, uncomplicated; Z88.0 Allergy status to penicillin; Z88.2 Allergy status to sulfonamides; Z91.040 Latex allergy status; Z88.8 Allergy status to other drugs, medicaments and biological substances
CPT/HCPCS: 99283

== ENCOUNTER → 2021-01-06 | Outpatient (CLI) | payer OTHER ==
[2020-12-19 01:30] VITALS: BP 137/83
--- NOTE | 2021-01-06 19:09 | RAD ---
3 views lumbar spine dated 01/06/2021. No comparison available. Clinical data indication: Low back pain. FINDINGS: 3 views lumbar spine show normal sagittal alignment. Vertebral body heights are maintained. Mild endp late hypertrophic changes throughout with mild arthrosis lower lumbar apophyseal joints. There is mil d disc space narrowing at L5-S1. IMPRESSION: 1. No acute radiographic abnormality. 2. Mild lower lumbar spondylosis. Electronically signed by: Vern Aleman MD (01/06/2021 7:07 PM) EMMANUEL
== END ==
LOC: PMG 18:52
PROVIDERS: ATTEND Nurse Practitioner Family
DX: M47.816 Spondylosis without myelopathy or radiculopathy, lumbar region (principal)
CPT/HCPCS: 72100

== ENCOUNTER 2021-01-24 19:33 | Emergency (ER) | payer OTHER ==
[~2021-01-24] VITALS: Ht 160 cm; Wt 87.8 kg
[2021-01-24 20:05] VITALS: BP 130/80
[2021-01-24] MEDS ORDERED: CLIN300C9 PO (20:06)
--- NOTE | 2021-01-24 20:06 | PHYS DOC ---
Past History Past Medical History: Anxiety, Bipolar, Depression, Diabetes Additional Past Medical Histor: PCOS Past Surgical History: Appendectomy, , Tonsillectomy, Tubal ligation Additional Past Surgical Histo: esophageal dilation Smoking: Cigarettes Alcohol Use: None Drug Use: None Adult General HPI HPI Patient is a 25-year-old female who presents to the emergency department with a chief complaint of fever. States she felt warm yesterday and her temperature got up to 99 and was running between 98 and 99 which she assumed was a fever. States she has a bad tooth in an upcoming dental appointment and thought it may be due to that. Denies any headaches, Covid/flu/cold symptoms, chest pain, shortness of breath, cough, abdominal pain, nausea, vomiting, dysuria, hematuria or diarrhea. States she has not taken any medications. Review of Systems Review of Systems Review of systems otherwise unremarkable except noted in HPI Allergies Allergies Allergies Coded Allergies Type Severity Reaction Last Updated Verified Penicillins Allergy Intermediate 11/07/20 No Sulfa (Sulfonamide Antibiotics) Allergy Intermediate 11/07/20 No aripiprazole Allergy Intermediate 11/07/20 No duloxetine Allergy Intermediate 11/07/20 No fluoxetine Allergy Intermediate 11/07/20 No latex Allergy Intermediate 11/07/20 No fentanyl Allergy Mild HIVES 10/31/19 No gabapentin Allergy Unknown 10/31/19 Yes Physical Exam Physical Exam Constitutional: Well developed, well nourished, no acute distress, non-toxic appearance. [] HENT: Normocephalic, atraumatic, bilateral external ears normal, oropharynx moist, no oral exudates, nose normal, patient has a capped back right molar that appears intact with no erythema. [] Eyes: conjunctiva normal, no discharge. [] Neck: Normal range of motion, no tenderness, supple, no stridor. [] Cardiovascular:Heart rate regular rhythm, no murmur [] Lungs & Thorax: No respiratory distress Abdomen: soft, no tenderness, no masses, no pulsatile masses. [] Neurologic: Alert and oriented X 3, no focal deficits noted. [] Psychologic: Affect normal, judgement normal, mood normal. [] EKG EKG [] Radiology/Procedures Radiology/Procedures [] Heart Score C/O Chest Pain: No Risk Factors: Risk Factors: DM, Current or recent (<one month) smoker, HTN, HLP, family history of CAD, obesity. Risk Scores: Risk Factors: DM, Current or recent (<one month) smoker, HTN, HLP, family history of CAD, obesity. Course & Med Decision Making Course & Med Decision Making Patient is a 25-year-old female who presents with concerns for a fever Vital signs not concerning. Patient description of a temperature between 98 and 99 explained did not meet criteria for fever. Patient has not taken any medications. Patient concerned that it was her bad tooth and does not have an appointment with her dentist for couple of weeks and wants antibiotics. Patient started on clindamycin in the ED due to request. Advised to call dentist first thing in the morning to update on ED visit and set up an appointment as soon as she can. Gave strict return precautions to the ED. Patient grateful, verbalized understanding and agreed with plan of discharge. [] Dragon Disclaimer Dragon Disclaimer This electronic medical record was generated, in whole or in part, using a voice recognition dictation system. Departure Departure: Impression: Primary Impression: History of dental problems Disposition: HOME / SELF CARE / HOMELESS Condition: GOOD Referrals: KENISHA MUÑOZ YARDAGE ESTIMATOR-C (PCP) Patient Instructions: Dental Pain Additional Instructions: Please read all the attached information. Please use Tylenol, and ibuprofen as needed at home. Please take your antibiotics as prescribed. Please call your dentist first thing in the morning to set up a follow-up appointment as soon as you can. Please come back to the ED with new or concerning symptoms as discussed. Scripts Clindamycin Hcl (CLINDAMYCIN HCL) 300 Mg Capsule 1 CAP PO TID for dental issue, #21 CAP Prov: JAQUI APODACA MD 01/24/21 JAQUI APODACA MD Jan 24, 2021 20:06
== END 2021-01-24 20:18 | disposition home or self-care (01) ==
LOC: ER 19:33
DX: R50.9 Fever, unspecified (principal); K08.89 Other specified disorders of teeth and supporting structures; F41.9 Anxiety disorder, unspecified; F31.9 Bipolar disorder, unspecified; E11.9 Type 2 diabetes mellitus without complications; F17.210 Nicotine dependence, cigarettes, uncomplicated; Z88.0 Allergy status to penicillin; Z88.2 Allergy status to sulfonamides; Z91.040 Latex allergy status; Z88.8 Allergy status to other drugs, medicaments and biological substances
CPT/HCPCS: 99283

== ENCOUNTER 2021-04-16 23:17 | Emergency (ER) | payer OTHER ==
[~2021-04-16] VITALS: Ht 160 cm; Wt 87.8 kg
[~2021-04-16 23:17] MED LIST changes: +CLIN300C9 PO
--- NOTE | 2021-04-16 23:23 | PHYS DOC ---
Past History Past Medical History: No Pertinent History Additional Past Medical Histor: PCOS Past Surgical History: Appendectomy, Cholecystectomy, , Tubal ligation Additional Past Surgical Histo: esophageal dilation Smoking: Cigarettes Alcohol Use: None Drug Use: None General Adult EDM: Chief Complaint: CHEST PAIN HPI: HPI: ".. I ve been having some episodes of chest pain.. it been constant tonight.. I went to ... they checked me for COVID it was negative.. but the said I needed to go to ED if I had chest pain..." Patient is a 26 year old female who presents with above hx and complaints intermittent central chest pain. Pain has been somewhat persistent past week. The pain tonight was constant for the last 3 to 4 hours. Patient patient does smoke cigarettes. Does have significant history for PCOS, anxiety, bipolar, depression, diabetes, obesity, hypertension. GERD, esophageal strictures, and obesity. The patient denies any specific ill contacts, no recent travel. No recent travel. 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 Patient denies any trauma. Review of Systems: Review of Systems: Constitutional: Denies fever or chills Eyes: Denies change in visual acuity HENT: Denies nasal congestion or sore throat Respiratory: Denies cough or shortness of breath Cardiovascular: Complains of central chest pain that has some pleuritic components. GI: Denies abdominal pain, nausea, vomiting, bloody stools or diarrhea : Denies dysuria Musculoskeletal: Denies back pain or joint pain Integument: Denies rash Neurologic: Denies headache, focal weakness or sensory changes Endocrine: Denies polyuria or polydipsia Lymphatic: Denies swollen glands Psychiatric: Denies depression or anxiety Family History: Family History: Noncontributory to presentation Current Medications: Current Meds: See nursing for home meds Allergies: Allergies: Allergies Coded Allergies Type Severity Reaction Last Updated Verified Penicillins Allergy Intermediate 11/07/20 No Sulfa (Sulfonamide Antibiotics) Allergy Intermediate 11/07/20 No aripiprazole Allergy Intermediate 11/07/20 No duloxetine Allergy Intermediate 11/07/20 No fluoxetine Allergy Intermediate 11/07/20 No latex Allergy Intermediate 11/07/20 No fentanyl Allergy Mild HIVES 10/31/19 No gabapentin Allergy Unknown 10/31/19 Yes Physical Exam: PE: Constitutional: Moderate acute distress, non-toxic appearance. [] HENT: Normocephalic, atraumatic, bilateral external ears normal, oropharynx moist, no oral exudates, nose normal. [] Eyes: PERRLA, EOMI, conjunctiva normal, no discharge. [] Neck: Normal range of motion, no tenderness, supple, no stridor. [] Cardiovascular:Heart rate regular rhythm, no murmur [] Lungs & Thorax: Bilateral breath sounds equal apex with scattered wheezes on auscultation []. Does have central chest pain on palpation and deep breaths Abdomen: Bowel sounds normal, soft, no tenderness, no masses, no pulsatile masses. Obese. Old surgery scars appendectomy, tubal ligation, cholecystectomy and Skin: Warm, dry, no erythema, no rash. [] Back: No tenderness, no CVA tenderness. [] Extremities: No tenderness, no cyanosis, no clubbing, ROM intact, no edema. No cording. Neurologic: Alert and oriented X 3, normal motor function, normal sensory function, no focal deficits noted. [] Psychologic: Affect anxious, judgement normal, mood normal. [] EKG: EKG: My interpretation EKG shows a sinus rhythm 77 bpm. There are some nonspecific T wave changes inferior leads. No findings of acute STEMI or contralateral changes. Does have occasional dropped QRS.. Abnormal EKG [] EKG was 2322 minutes. My interpretation EKG #2 shows sinus rhythm at 71 bpm. Currently a normal sinus rhythm. No acute morphology. EKG time was 02 26 minutes. Radiology/Procedures: Radiology/Procedures: [][address] [place] [id number] IMAGING REPORT Signed PATIENT: ROHAN JACKSON ACCOUNT: [id number] : 1995 LOCATION: ER AGE: 26 SEX: F EXAM STATUS: REG ER ORD. PHYSICIAN: XOCHITL STREETER MD REASON: pleuritic cp., sent Urgent care, OMNI 350, 100ml PROCEDURE: CT ANGIOGRAPHY CHEST INDICATION: Reason: pleuritic cp., sent Urgent care, OMNI 350, 100ml / Spl. Instructions: / History: COMPARISON: None. TECHNIQUE: Axial CT images obtained through the chest. Intravenous contrast utilized. Angiogram 3D images processed per protocol. One or more of the following individualized dose reduction techniques were utilized for this examination: 1. Automated exposure control; 2. Adjustment of the mA and/or kV according to patient size; 3. Use of iterative reconstruction technique. FINDINGS: Patient motion limits the exam. There are some groundglass opacities bilaterally. No evidence of pneumothorax. Partially visualized liver is enlarged and low density which can be seen with fatty infiltration. Spleen also prominent in size with heterogenous enhancement. Prominent lymph nodes subcarinal region measuring up to about 12 mm short axis. Soft tissue density anterior mediastinum commonly from thymic tissue. No thoracic aortic aneurysm. No embolus in the main, right main or left main pulmonary artery with peripheral vessels obscured by motion degenerative changes the spine IMPRESSION: No central pulmonary embolus with peripheral vessels obscured by motion. Mild groundglass opacities which could be from mild edema or small airway inflammation. Electronically signed by: Carloz Eldridge MD (04/17/2021 1:57 AM) [id number] DICTATED AND SIGNED BY: CARLOZ ELDRIDGE MD DATE: 04/17/21150 CC: XOCHITL STREETER MD; KENISHA MUÑOZ SCALE CLERK-C ~MTH0 0 Heart Score: C/O Chest Pain: Yes HEART Score for Chest Pain: HEART Score for Chest Pain Response (Comments) Value History Slighlty/Non-Suspicious 0 ECG Normal 0 Age < 45 0 Risk Factors 1 or 2 Risk Factors 1 Troponin < Normal Limit 0 Total 1 Risk Factors: Risk Factors: DM, Current or recent (<one month) smoker, HTN, HLP, family history of CAD, obesity. Risk Scores: Score 0 - 3: 2.5% MACE over next 6 weeks - Discharge Home Score 4 - 6: 20.3% MACE over next 6 weeks - Admit for Clinical Observation Score 7 - 10: 72.7% MACE over next 6 weeks - Early Invasive Strategies Course & Med Decision Making: Course & Med Decision Making Pertinent Labs and Imaging studies reviewed. (See chart for details) Patient strongly encouraged to stop smoking. Take a daily aspirin. Follow-up primary care. Consider outpatient stress testing. Take a daily baby aspirin. Impression: 1. Chest Pain 2. Anxiety. 3. Rapid Covid testing negative 4. Bronchitis 5. Tobacco abuse [] Dragon Disclaimer: Dragon Disclaimer: This electronic medical record was generated, in whole or in part, using a voice recognition dictation system. Departure Departure: Referrals: KENISHA MUÑOZ SCALE CLERK-C (PCP) Balwinder Disclaimer This chart was dictated in whole or in part using Voice Recognition software in a busy, high-work load, and often noisy Emergency Department environment. It may contain unintended and wholly unrecognized errors or omissions. Balwinder Disclaimer This chart was dictated in whole or in part using Voice Recognition software in a busy, high-work load, and often noisy Emergency Department environment. It may contain unintended and wholly unrecognized errors or omissions. XOCHITL STREETER MD Apr 16, 2021 23:23
--- NOTE | 2021-04-16 23:52 | EKG ---
[address] [address] Test Date: 2021-04-16 Test Time: 23:22:37 Pat Name: ROHAN JACKSON Department: Room: Gender: F Technology Intern: : 1995 Requested By: XOCHITL STREETER Order Number: [id number] Reading MD: Measurements Intervals [place] Rate: 77 P: 31 KS: 174 QRS: 52 QRSD: 98 T: -3 QT: 376 QTc: 427 Interpretive Statements SINUS RHYTHM T ABNORMALITY IN INFERIOR LEADS ABNORMAL ECG RI6.02 No previous ECG available for comparison
[2021-04-17] MEDS ORDERED: IV RINGERS SOLUTION,LACTATED 1,000 ML IV SCH
[2021-04-17] MEDS ORDERED: IBUPROFEN 600 MG TABLET. PO ONE
[2021-04-17] MEDS ORDERED: IOHEXOL 350 MG/ML 100 ML VIAL. IV ONE (00:15)
[2021-04-17] MEDS ORDERED: CONTRAST GIVEN. MC PRN (00:15)
[2021-04-17 00:44] LABS: BARBITURATES NEG (NEG); BENZODIAZEPINES NEG (NEG); CANNABINOIDS NEG (NEG); COCAINE NEG (NEG); METHADONE NEG (NEG); OPIATES NEG (NEG); PHENCYCLIDINE NEG (NEG)
[2021-04-17 00:47] LABS: ANION GAP 10 (6-14); BLOOD UREA NITROGEN 10 mg/dL (7-20); CALCIUM 8.9 mg/dL (8.5-10.1); CARBON DIOXIDE 29 mmol/L (21-32); CHLORIDE 106 mmol/L (98-107); CREATININE 0.8 mg/dL (0.6-1.0); GFR 86.7; GLUCOSE 116 mg/dL (70-99); POTASSIUM 3.6 mmol/L (3.5-5.1); SODIUM 145 mmol/L (136-145)
[2021-04-17 00:52] LABS: BILIRUBIN,URINE NEG (NEG); CLARITY,URINE CLEAR; COLOR,URINE YELLOW; GLUCOSE,URINE NEG (NEG); UROBILINOGEN,URINE 0.2 mg/dL (0.2 mg/dL)
[2021-04-17 00:53] LABS: BACTERIA,URINE 0 /HPF (0-FEW); NITRITE,URINE NEG (NEG); RBC,URINE 0 /HPF (0-2); SQUAMOUS EPITHELIAL CELL,UR FEW /LPF; WBC,URINE 0 /HPF (0-4)
[2021-04-17 00:54] LABS: AMPHETAMINE/METHAMPHETAMINE NEG (NEG)
[2021-04-17 01:01] LABS: ALBUMIN 3.7 g/dL (3.4-5.0); ALK PHOS 65 U/L (46-116); ALT (SGPT) 37 U/L (14-59); AST (SGOT) 18 U/L (15-37); LIPASE 91 U/L (73-393); MAGNESIUM 1.8 mg/dL (1.8-2.4); TOTAL BILIRUBIN 0.1 mg/dL (0.2-1.0); TOTAL PROTEIN 6.9 g/dL (6.4-8.2)
[2021-04-17 01:03] LABS: BASO % 1 % (0-3); EOS # 0.1 x10^3/uL (0.0-0.7); EOS % 2 % (0-3); HEMATOCRIT 35.9 % (36.0-47.0); HEMOGLOBIN 12.4 g/dL (12.0-15.5); LYMPH # 2.4 x10^3/uL (1.0-4.8); LYMPH % 46 % (24-48); MEAN CORPUSCULAR HEMOGLOBIN 30 pg (25-35); MEAN CORPUSCULAR HGB CONC 35 g/dL (31-37); MEAN CORPUSCULAR VOLUME 86 fL (79-100); MONO # 0.4 x10^3/uL (0.0-1.1); MONO % 8 % (0-9); NEUT # 2.2 x10^3uL (1.8-7.7); NEUT % 43 % (31-73); PLATELET COUNT 203 x10^3/uL (140-400); RED CELL DISTRIBUTION WIDTH 12.7 % (11.5-14.5); WHITE BLOOD COUNT 5.1 x10^3/uL (4.0-11.0)
[2021-04-17 01:09] LABS: DIRECT BILIRUBIN < 0.1 mg/dL (0.0-0.2)
--- NOTE | 2021-04-17 02:00 | RAD ---
INDICATION: Reason: pleuritic cp., sent Urgent care, OMNI 350, 100ml / Spl. Instructions: / History: COMPARISON: None. TECHNIQUE: Axial CT images obtained through the chest. Intravenous contrast utilized. Angiogram 3D images proce ssed per protocol. One or more of the following individualized dose reduction techniques were utilized for this examinat ion: 1. Automated exposure control; 2. Adjustment of the mA and/or kV according to patient size; 3 . Use of iterative reconstruction technique. FINDINGS: Patient motion limits the exam. There are some groundglass opacities bilaterally. No evidence of pneumothorax. Partially visualized liver is enlarged and low density which can be seen with fatty infiltration. Spl een also prominent in size with heterogenous enhancement. Prominent lymph nodes subcarinal region measuring up to about 12 mm short axis. Soft tissue density anterior mediastinum commonly from thymic tissue. No thoracic aortic aneurysm. No embolus in the main, right main or left main pulmonary artery with peripheral vessels obscured by motion degenerative changes the spine IMPRESSION: No central pulmonary embolus with peripheral vessels obscured by motion. Mild groundglass opacities which could be from mild edema or small airway inflammation. Electronically signed by: Carloz Parr MD (04/17/2021 1:57 AM) [id number]
[2021-04-17 02:27] VITALS: BP 119/65
--- NOTE | 2021-04-17 02:37 | EKG ---
[address] [address] Test Date: 2021-04-17 Test Time: 02:26:25 Pat Name: ORHAN JACKSON Department: Room: Gender: F Lidar Analyst: : 1995 Requested By: XOCHITL STREETER Order Number: [id number] Reading MD: Measurements Intervals [place] Rate: 71 P: 0 AK: 178 QRS: 49 QRSD: 94 T: 59 QT: 420 QTc: 457 Interpretive Statements SINUS RHYTHM NORMAL ECG RI6.02 No previous ECG available for comparison
== END 2021-04-17 03:05 | disposition home or self-care (01) ==
LOC: ER 23:17
DX: R07.89 Other chest pain (principal); F41.9 Anxiety disorder, unspecified; J40 Bronchitis, not specified as acute or chronic; Z20.822 Contact with and (suspected) exposure to COVID-19; F31.9 Bipolar disorder, unspecified; E11.9 Type 2 diabetes mellitus without complications; I10 Essential (primary) hypertension; K21.9 Gastro-esophageal reflux disease without esophagitis; E66.9 Obesity, unspecified; F17.210 Nicotine dependence, cigarettes, uncomplicated; Z68.34 Body mass index [BMI] 34.0-34.9, adult; Z88.0 Allergy status to penicillin; Z88.2 Allergy status to sulfonamides; Z91.040 Latex allergy status; Z88.8 Allergy status to other drugs, medicaments and biological substances
CPT/HCPCS: 36415; 71275; 80048; 80076; 80307; 81001; 82550; 83690; 83735; 83880; 84443; 84484; 85025; 93005; 96360; 99285; J7120; Q9967

== ENCOUNTER 2021-12-04 20:08 | Emergency (ER) | payer OTHER ==
[~2021-12-04] VITALS: Ht 152.4 cm; Wt 88.6 kg
[~2021-12-04 20:08] MED LIST changes: +CLIN-95 PO; -CLIN300C9 PO; -CYCL-331 PO; +CYCL10TA19 PO
[2021-12-04 20:10] VITALS: BP 140/100
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
[2021-12-04] MEDS ORDERED: HYDROcodone/APAP 5/325MG 1 TAB TABLET PO ONE (21:30)
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
== END 2021-12-04 22:34 | disposition home or self-care (01) ==
LOC: ER 20:08
DX: R51.9 Headache, unspecified (principal); M54.2 Cervicalgia; M54.6 Pain in thoracic spine; E11.9 Type 2 diabetes mellitus without complications; E78.00 Pure hypercholesterolemia, unspecified; F17.210 Nicotine dependence, cigarettes, uncomplicated; Z90.49 Acquired absence of other specified parts of digestive tract; Z90.89 Acquired absence of other organs; Z98.890 Other specified postprocedural states; Z98.51 Tubal ligation status; Z88.0 Allergy status to penicillin; Z88.2 Allergy status to sulfonamides; Z91.040 Latex allergy status; V89.2XXA Person injured in unspecified motor-vehicle accident, traffic, initial encounter; Y93.89 Activity, other specified; Y92.89 Other specified places as the place of occurrence of the external cause; Y99.8 Other external cause status
CPT/HCPCS: 70450; 72125; 72128; 81025; 99284

== ENCOUNTER 2021-12-31 19:37 | Emergency (ER) | payer OTHER ==
[~2021-12-31] VITALS: Ht 152.4 cm; Wt 83.9 kg
--- NOTE | 2021-12-31 20:29 | PHYS DOC ---
Past History Past Medical History: Diabetes, High Cholesterol, Other Additional Past Medical Histor: PCOS (ROJELIO WISE APRN) Past Surgical History: Appendectomy, Cholecystectomy, , Tubal ligation Additional Past Surgical Histo: esophageal dilation (ROJELIO WISE APRN) Smoking: Cigarettes Alcohol Use: None Drug Use: None (ROJELIO WISE APRN) General Adult EDM: Chief Complaint: DIARRHEA HPI: HPI: Patient is a 26-year-old female presents with diarrhea. Patient recently started metformin. Diarrhea started yesterday. Denies abdominal pain. Denies nausea or vomiting. Patient states that she is still eating and drinking just fine. Patient is hemodynamically stable. Denies all other complaints. She has a PCP that she sees regularly. History of PCOS. Up-to-date on immunizations. (ROJELIO WISE APRN) Review of Systems: Review of Systems: ROS At least 10 ROS systems have been reviewed and are negative except as documented in the HPI. General: Negative except as outlined in HPI above. Skin: Negative except as outlined in HPI above. HEENT: Negative except as outlined in HPI above. Neck: Negative except as outlined in HPI above. Respiratory: Negative except as outlined in HPI above.. Cardiovascular: Negative except as outlined in HPI above. Abdomen: Negative except as outlined in HPI above. : Negative except as outlined in HPI above. Back/MSK: Negative except as outlined in HPI above. Neuro: Negative except as outlined in HPI above. Psych: Negative except as outlined in HPI above. (ROJELIO WISE APRN) Allergies: Allergies: Allergies Coded Allergies Type Severity Reaction Last Updated Verified Penicillins Allergy Intermediate 11/07/20 No Sulfa (Sulfonamide Antibiotics) Allergy Intermediate 11/07/20 No aripiprazole Allergy Intermediate 11/07/20 No duloxetine Allergy Intermediate 11/07/20 No fluoxetine Allergy Intermediate 11/07/20 No latex Allergy Intermediate 11/07/20 No fentanyl Allergy Mild HIVES 10/31/19 No gabapentin Allergy Unknown 10/31/19 Yes (ROJELIO WISE APRN) Physical Exam: PE: Constitutional: Well developed, well nourished, no acute distress, non-toxic appearance. [] HENT: Normocephalic, bilateral external ears normal, oropharynx moist, no oral exudates, nose normal. [] Eyes: PERRLA, conjunctiva normal, no discharge. [] Neck: Normal range of motion, no tenderness, supple, no stridor. [] Cardiovascular:Heart rate regular rhythm, no murmur [] Lungs & Thorax: Bilateral breath sounds clear to auscultation [] Abdomen: Bowel sounds normal, soft, no tenderness, no masses Skin: Warm, dry, no erythema, no rash. [] Back: No tenderness, no CVA tenderness. [] Extremities: No tenderness, no cyanosis, no clubbing, ROM intact, no edema. [] Neurologic: Alert and oriented X 3, normal motor function, normal sensory function, no focal deficits noted. [] Psychologic: Affect normal, judgement normal, mood normal. [] (ROJELIO WISE APRN) Current Patient Data: Vital Signs: Vital Signs Date Time Temp Pulse Resp B/P (MAP) Pulse Ox O2 Delivery O2 Flow Rate FiO2 12/31/21 20:02 99.1 104 16 134/83 (100) 98 Room Air (ROJELIO WISE APRN) EKG: EKG: [] (ROJELIO WISE APRN) Radiology/Procedures: Radiology/Procedures: [] (ROJELIO WISE APRN) Heart Score: C/O Chest Pain: No Risk Factors: Risk Factors: DM, Current or recent (<one month) smoker, HTN, HLP, family history of CAD, obesity. Risk Scores: Score 0 - 3: 2.5% MACE over next 6 weeks - Discharge Home Score 4 - 6: 20.3% MACE over next 6 weeks - Admit for Clinical Observation Score 7 - 10: 72.7% MACE over next 6 weeks - Early Invasive Strategies (ROJELIO WISE APRN) Course & Med Decision Making: Course & Med Decision Making Pertinent Labs and Imaging studies reviewed. (See chart for details) [] 26-year-old male presents with diarrhea. Symptoms started yesterday. Patient is hemodynamically stable. Afebrile. Patient has not been taking any medications at home. Denies abdominal pain. Advised patient she most likely is having diarrhea from the Metformin she just started. Patient needs to follow-up with her PCP for possibly adjustments to medications. Continue drinking plenty of fluids. Take [id number] medications to help with diarrhea if needed. (ROJELIO WISE APRN) Dragon Disclaimer: Dragmarilyn Disclaimer: This electronic medical record was generated, in whole or in part, using a voice recognition dictation system. (ROJELIO WISE APRN) Attending Co-Sign The patient was seen and interviewed as well as examined at the bedside. The chart was reviewed. The case was discussed. Agree with the plan of care. (LA PAIGE DO) Departure Departure: Impression: Primary Impression: Abdominal pain, vomiting, and diarrhea Disposition: HOME / SELF CARE / HOMELESS Condition: STABLE Referrals: [facility] (PCP) Patient Instructions: Diarrhea Additional Instructions: You are seen emergency room for diarrhea. You just started a new medication that is typical for causing diarrhea. You need to follow-up with your PCP for further management. Continue drinking plenty of fluids. You can take [id number] the medications to help with diarrhea. Return emergency room with worsening symptoms or concerns. EMERGENCY DEPARTMENT GENERAL DISCHARGE INSTRUCTIONS Thank you for coming to [facility] (ED) today and trusting us with you care. We trust that you had a positivie experience in our Emergency Department. If you wish to speak to the department management, you may call the director at [phone]. YOUR FOLLOW UP INSTRUCTIONS ARE FOLLOWS: 1. Do you have a private Doctor? If you do not have a private doctor, please ask for a resource list of physicians or clinics that may be able to assist you with follow up care. 2. The Emergency Physician has interpreted your x-rays. The X-Ray specialist will also review them. If there is a change in the findings, you will be notified in 48 hours when at all possible. 3. A lab test or culture has been done, your results will be reviewed and you will be notified if you need a change in treatment. ADDITIONAL INSTRUCTIONS AND INFORMATION: 1. Your care today has been supervised by a physician who is specially trained in emergency care. Many problems require more than one evaluation for a complete diagnosis and treatment. We recommend that you schedule your follow up appointment as recommended to ensure complete treatment of you illness or injury. If you are unable to obtain follow up care and continue to have a problem, or if your condition worsens, we recommend that you return to the ED. 2. We are not able to safely determine your condition over the phone nor are we able to give sound medical advice over the phone. For these safety reasons, if you call for medical advice we will ask you to come to the ED for further evaluation. 3. If you have any questions regarding these discharge instructions please call the ED at [phone]. SAFETY INFORMATION: In the interest of safety, wellness, and injury prevention; we encourage you to wear your sealbelt, if you smoke; quite smoking, and we encourage family to use a protective helmet for bicycling and other sporting events that present an increased risk for head injury. IF YOUR SYMPTOMS WORSEN OR NEW SYMPTOMS DEVELOP, OR YOU HAVE CONCERNS ABOUT YOUR CONDITION; OR IF YOUR CONDITION WORSENS WHILE YOU ARE WAITING FOR YOUR FOLLOW UP APPOINTMENT; EITHER CONTACT YOUR PRIMARY CARE DOCTOR, THE PHYSICIAN WHOSE NAME AND NUMBER YOU WERE GIVEN, OR RETURN TO THE ED IMMEDIATELY. ROJELIO WISE APRN Dec 31, 2021 20:29 LA PAIGE DO Jan 01, 2022 04:30
[2021-12-31 21:10] VITALS: BP 128/84
== END 2021-12-31 21:15 | disposition home or self-care (01) ==
LOC: ER 19:37
DX: R19.7 Diarrhea, unspecified (principal); R11.10 Vomiting, unspecified; R10.9 Unspecified abdominal pain; E11.9 Type 2 diabetes mellitus without complications; E78.00 Pure hypercholesterolemia, unspecified; F17.210 Nicotine dependence, cigarettes, uncomplicated; Z90.89 Acquired absence of other organs; Z90.49 Acquired absence of other specified parts of digestive tract; Z98.890 Other specified postprocedural states; Z98.51 Tubal ligation status; Z88.0 Allergy status to penicillin; Z88.2 Allergy status to sulfonamides; Z88.8 Allergy status to other drugs, medicaments and biological substances; Z91.040 Latex allergy status
CPT/HCPCS: 99282